=== PATIENT | male | born 1990 | race Caucasian/White ===

== ENCOUNTER 2017-11-21 21:00 | Inpatient (IN) ==
--- NOTE | 2017-11-21 22:28 | ED ---
HPI General Chief complaint: Medical Clearance Stated complaint: Medical clearance Time Seen by Provider: 11/21/17 22:18 History of Present Illness HPI narrative: Patient 27-year-old male Bulgarian only speaker history mostly obtained from friend plumbing foreman in the room, the patient started feeling ill about a month ago and went to [place] because he knew he can get seen by a physician quicker there. He was diagnosed with kidney failure and started on dialysis which he started about 2 weeks ago. His symptoms that caused him to go to [place] was numbness and tingling in his hands as well as just general fatigue. He tells me through plumbing foreman that his kidneys failed him because of uncontrolled blood pressure. The patient was unable to travel secondary to being on dialysis and was able to return to [place] today. He presents the emergency department today with the hopes of establishing a regular dialysis doctor. The patient has no complaints currently. Denies any shortness of breath chest pain abdominal pain nausea or vomiting. Related Data Home Medications Medication Instructions Recorded Confirmed Lasix 40 tab PO DAILY 11/21/17 11/21/17 amlodipine [Norvasc] 5 mg PO DAILY 11/21/17 11/21/17 Allergies Allergy/AdvReac Type Severity Reaction Status Date / Time No Known Allergies Allergy Verified 11/21/17 21:16 Review of Systems ROS: all other systems reviewed are negative [facility] Medical History Medical History HTN (hypertension) (Acute) Kidney failure (Acute) Social History Social History Substance History: No History of Abuse Smoking Status: Never smoker How Often Do You Have a Drink Containing Alcohol: Never Recent Travel in [facility] within the Last 8 Weeks: No Recent Out of Country Travel within the Last 8 Weeks: Yes Exam Narrative Exam Narrative: GENERAL: Well-developed well-nourished pleasant male in no obvious distress peer SKIN: Focused skin assessment warm/dry. A right-sided dialysis access subclavian is well dressed and clean. The dressing is not removed. HEAD: Atraumatic. Normocephalic. EYES: Pupils equal and round. No scleral icterus. No injection or drainage. ENT: No nasal bleeding or discharge. Mucous membranes pink and moist. NECK: Trachea midline. No JVD. CARDIOVASCULAR: Regular rate and rhythm. No murmur appreciated. RESPIRATORY: No accessory muscle use. Clear to auscultation. Breath sounds equal bilaterally. GASTROINTESTINAL: Abdomen soft, non-tender, nondistended. Hepatic and splenic margins not palpable. MUSCULOSKELETAL: No obvious deformities. No clubbing. No cyanosis. No edema. NEUROLOGICAL: Awake and alert. No obvious cranial nerve deficits. Motor grossly within normal limits. Normal speech. PSYCHIATRIC: Appropriate mood and affect; insight and judgment normal. Course Initial Documented Vital Signs Temperature 98.5 F 11/21/17 21:11 Pulse Rate 67 11/21/17 21:11 Respiratory Rate 16 11/21/17 21:11 Blood Pressure 189/91 H 11/21/17 21:11 Pulse Oximetry 100 11/21/17 21:11 Last Documented Vital Signs Temperature 98.5 F 11/21/17 21:11 Pulse Rate 67 11/21/17 21:11 Respiratory Rate 16 11/21/17 21:11 Blood Pressure 158/90 H 11/21/17 22:47 Pulse Oximetry 100 11/21/17 21:11 Medical Decision Making MDM Narrative Medical decision making narrative: Patient 27-year-old male presents emergency department for evaluation for routine dialysis. Patient's labs reviewed and creatinine is in excess of 12, BUN in excess of 90, sodium potassium chloride anion gap and bicarb within normal limits. Patient's phosphorus is moderately elevated and the magnesium is minimally elevated. Patient does not have any fluid overload. He has no complaints, no changes on EKG. Patient was discussed with Dr. Whitney who is on-call for nephrology, he would like the patient to be admitted to see case management and dialyzed. Patient discussed with Dr. Call, she states that despite the patient's uremia there is no true indications for admission the patient to remain in the emergency department for evaluation by case management nephrology. I think that is a reasonable course of action at this time. He will be moved to a medical pot and I will give sign out to the Doctor there at the end of my shift at 0100. Medical Screen Exam Complete: Yes Emergency Medical Condition: Yes Lab Data Result diagrams: 11/21/17 22:30 11/21/17 22:30 Lab Results 11/21/17 11/21/17 11/21/17 Range/Units 22:30 22:30 22:30 WBC 7.7 (4.0-11.0) th/mm3 RBC 2.51 L (4.50-5.90) mil/mm3 Hgb 8.3 L (13.0-17.0) gm/dL Hct 23.5 L (39.0-51.0) % MCV 93.7 (80.0-100.0) fL MCH 33.1 (27.0-34.0) pg MCHC 35.4 (32.0-36.0) % RDW 13.4 (11.6-17.2) % Plt Count 246 (150-450) th/mm3 MPV 7.6 (7.0-11.0) fL Neut % (Auto) 56.8 (16.0-70.0) % Lymph % (Auto) 26.9 (9.0-44.0) % [place] % (Auto) 8.8 H (0.0-8.0) % Eos % (Auto) 4.6 H (0.0-4.0) % Baso % (Auto) 2.9 H (0.0-2.0) % Neut # (Auto) 4.4 (1.8-7.7) th/mm3 Lymph # (Auto) 2.1 (1.0-4.8) th/mm3 [place] # (Auto) 0.7 (0.0-0.9) th/mm3 Eos # (Auto) 0.4 (0.0-0.4) th/mm3 Baso # (Auto) 0.2 (0.0-0.2) th/mm3 WBC Differential . Differential Comment Auto diff final Sodium 144 (136-145) meq/L Potassium 4.4 (3.5-5.1) meq/L Chloride 107 (98-107) meq/L Carbon Dioxide 22.6 (21.0-32.0) meq/L Anion Gap 14 (5-15) meq/L BUN 94 H (7-18) mg/dL Creatinine 12.88 H* (0.60-1.30) mg/dL Estimated GFR 5 L (>89) mL/min Random Glucose 109 H (74-106) mg/dL Calcium 7.5 L (8.5-10.1) mg/dL Phosphorus 7.5 H (2.5-4.9) mg/dL Magnesium 2.6 H (1.5-2.5) mg/dL Total Bilirubin 0.2 (0.2-1.0) mg/dL AST 5 L (15-37) U/L ALT 23 (12-78) U/L Alkaline Phosphatase 58 (45-117) U/L Total Protein 8.4 H (6.4-8.2) g/dL Albumin 4.2 (3.4-5.0) g/dL Imaging Data Radiologist's impression: Chest X-Ray 11/21/17 22:19 CONCLUSION: The lungs are clear. Discharge Plan Discharge Disposition Patient Disposition: 30 Still Patient Discharge Details Diagnosis: CKD (chronic kidney disease) stage V requiring chronic dialysis Physicians Team ED Provider: Shelton Crystal Primary Care Provider: Primary Care Swati Valle Rxs /Orders / Referrals /Forms Prescriptions: No Action amlodipine [Norvasc] 5 mg Tablet 5 mg PO DAILY RF: 0 Lasix tablet 40 tab PO DAILY RF: 0 Status ED Status: Medically Cleared
--- NOTE | 2017-11-21 22:37 | XR ---
EXAM DATE: 11/21/2017 10:19 PM EDT AGE/SEX: 27 years / Male INDICATIONS: Chest pain. CLINICAL DATA: This is the patient's initial encounter. Patient reports that signs and symptoms have been present for 1 day and indicates a pain score of 0/10. MEDICAL/SURGICAL HISTORY: None. None. COMPARISON: No prior exams available for comparison. FINDINGS: A single AP view of the chest demonstrates the lungs to be symmetrically aerated without evidence of mass, infiltrate or effusion. No evidence of pneumothorax. The cardiomediastinal contours are unremar kable. Osseous structures are intact. Right central line catheter tip at the cavoatrial junction. CONCLUSION: The lungs are clear. Electronically signed by: Esequiel Estrada MD 11/21/2017 10:36 PM EDT
[2017-11-21 22:45] LABS: Baso # (Auto) 0.2 th/mm3 (0.0-0.2); Baso % (Auto) 2.9 % (0.0-2.0); Eos # (Auto) 0.4 th/mm3 (0.0-0.4); Eos % (Auto) 4.6 % (0.0-4.0); Hematocrit 23.5 % (39.0-51.0); Hemoglobin 8.3 gm/dL (13.0-17.0); Lymph # (Auto) 2.1 th/mm3 (1.0-4.8); Lymph % (Auto) 26.9 % (9.0-44.0); Mean Corpuscular HGB Conc 35.4 % (32.0-36.0); Mean Corpuscular Hemoglobin 33.1 pg (27.0-34.0); Mean Corpuscular Volume 93.7 fL (80.0-100.0); Mean Platelet Volume 7.6 fL (7.0-11.0); Mono # (Auto) 0.7 th/mm3 (0.0-0.9); Mono % (Auto) 8.8 % (0.0-8.0); Neut # (Auto) 4.4 th/mm3 (1.8-7.7); Neut % (Auto) 56.8 % (16.0-70.0); Platelet Count 246 th/mm3 (150-450); Red Blood Count 2.51 mil/mm3 (4.50-5.90); Red Cell Distribution Width 13.4 % (11.6-17.2); White Blood Count 7.7 th/mm3 (4.0-11.0)
[2017-11-21 23:09] LABS: Alanine Aminotransferase 23 U/L (12-78); Albumin 4.2 g/dL (3.4-5.0); Anion Gap 14 meq/L (5-15); Aspartate Aminotransferase 5 U/L (15-37); Blood Urea Nitrogen 94 mg/dL (7-18); Calcium 7.5 mg/dL (8.5-10.1); Carbon Dioxide 22.6 meq/L (21.0-32.0); Chloride 107 meq/L (98-107); Glomerular Filtration Rate 5 mL/min (>89); Glucose,Random 109 mg/dL (74-106); Potassium 4.4 meq/L (3.5-5.1); Sodium 144 meq/L (136-145)
[2017-11-21 23:11] LABS: Alkaline Phosphatase 58 U/L (45-117); Total Protein 8.4 g/dL (6.4-8.2)
[2017-11-21 23:49] LABS: Magnesium 2.6 mg/dL (1.5-2.5); Phosphorus 7.5 mg/dL (2.5-4.9)
[2017-11-22] MEDS ORDERED: Bisacodyl 10 MG Supp RECTAL PRN (13:09)
--- NOTE | 2017-11-22 13:37 | P.HPFP ---
History of Present Illness Primary Care Physician: No Primary Care Physician <Sandra Quiroz - 11/23/17 10:08> No Primary Care Physician <Tiffani Bryson 11/22/17 13:37> Chief Complaint: Chronic kidney requiring dialysis <Tiffani Bryson V 14:27> History of Present Illness: 27 yr old male Vietnamese speaker presented to the ED with a recently diagnosed CKD stage V, requiring dialysis. He states he has been previously healthy, with no medical conditions, or chronic medical disease. He was recently in [place], started note feeling well, including hypotension, weakness, and nausea. He went to the hospital and was then diagnosed with chronic kidney failure. He was started on dialysis and a worked up was done, however they did not give him a cause of his kidney failure. He states they talked about doing a kidney biopsy but was not performed, they also discussed the possibility of a kidney transplant. He received dialysis 3 times in order to stabilize him for [place]. The only other sick episode he had, was about 3 months ago, then he was not feeling well, with some nausea, and vomiting. He states his hypertension was discovered about 6 months ago, but nothing before that. He is not taking any medications. Pt denies any drug use, no congenital abnormalities , no defects, no history of anomalies growing up. PMH: high blood pressure. SHx: No surgical history. FHx: No renal family history, one uncle with kidney stones only. Maternal side with DMT2. Social: lives with father and grandfather, used to drink on weekends mainly, and sometimes 1-2 beers during week days. Smoked cigarettes for 5 years, 1/2 pack cigarettes a day. Currently not smoking. Denies drug use of any kind. Allergies: none Meds: none. <Tiffani Bryson V 11/22/17 14:27> - Diagnosis (1) CKD (chronic kidney disease) stage V requiring chronic dialysis (2) Hypertension (3) Nutrition, metabolism, and development symptoms (4) DVT prophylaxis <Sandra Quiroz - 11/23/17 10:08> (1) CKD (chronic kidney disease) stage V requiring chronic dialysis (2) Hypertension (3) Nutrition, metabolism, and development symptoms (4) DVT prophylaxis <All LeviDebi - 11/22/17 20:43> Inpatient Certification: I certify that the inpatient services were ordered in accordance with Medicare regulations governing the order. This includes certification that hospital inpatient services are reasonable and necessary and in the case of services not specified as inpatient-only under 42 CFR 419.22(n), that they are appropriately provided as inpatient services in accordance to with the 2-midnight benchmark under 43 CFR 412.3(e) <Sandra Quiroz - 11/23/17 10:08> I certify that the inpatient services were ordered in accordance with Medicare regulations governing the order. This includes certification that hospital inpatient services are reasonable and necessary and in the case of services not specified as inpatient-only under 42 CFR 419.22(n), that they are appropriately provided as inpatient services in accordance to with the 2-midnight benchmark under 43 CFR 412.3(e) <All Sims,Debi 11/22/17 13:37> Estimated Total Length of Stay (Days): 2 <Allmaninder SimsDebi 11/22/17 13: 37> Plans for Post Hospital Care: Home <All Sims,Debi 11/22/17 13:37> Review of Systems Constitutional: Reports lack of energy, Reports malaise, Reports weakness, Denies body ache(s), Denies fever(s) <Tiffani Bryson V 11/22/17 14:27> Cardiovascular: Denies chest pain, Denies foot swelling, Denies generalized swelling <Tiffani Bryson V 11/22/17 14:27> Gastrointestinal: Reports constipation, Reports nausea, Denies abdominal pain, Denies vomiting <Tiffani Bryson V 11/22/17 14:27> Genitourinary: Reports decreased urination, Denies blood in urine, Denies difficulty urinating <Tiffani Bryson V 11/22/17 14:27> Neurologic: Reports weakness <Tiffani Bryson V 11/22/17 14:27> Allergic/Immunologic: Denies GI upset with certain foods, Denies hives, Denies seasonal runny nose <Tiffani Bryson V 11/22/17 14:27> PMFSH - History History Provided By: Patient <Tiffani Bryson 11/22/17 13:37> - Medical / Surgical Hx Neg / Unobtainable Surgical History: No Previous Surgery <AllTiffani Dennison 11/22/17 14:27> - Medical History Medical History: Medical History (Last Reviewed 11/22/17 @ 14:07 by Tiffani Sims MD, R1 ) HTN (hypertension) Kidney failure <Sandra Quiroz - 11/23/17 10:08> Medical History (Last Reviewed 11/22/17 @ 14:07 by Tiffani Sims MD, R1 ) HTN (hypertension) Kidney failure <Tiffani Bryson V 11/22/17 14:27> - Social History I have reviewed the patient's Social History: Yes <Tiffani Bryson V 10/02 14:27> - Tobacco History Smoking Status: Never smoker <Tiffani Bryson 11/22/17 13:37> - Alcohol History How Often Do You Have a Drink Containing Alcohol: Never <Tiffani Bryson 11/22/17 13:37> - Substance Use History Substance History: No History of Abuse <Tiffani Bryson 11/22/17 13:37 > - Travel History Recent Travel in the [facility] Within the Last 8 Weeks: No <Tiffani Bryson 11/22/17 13:37> Recent Travel Out of the Country Within the Last 8 Weeks: Yes <Tiffani Bryson 11/22/17 13:37> - Immunization History Tetanus Immunization: Unsure <Tiffani Bryson 11/22/17 13:37> Medications and Allergies Allergies Allergy/AdvReac Type Severity Reaction Status Date / Time No Known Allergies Allergy Verified 11/21/17 21:16 <Sandra Quiroz - 11/23/17 10:08> Home Medications Medication Instructions Recorded Confirmed Type Lasix 40 tab PO DAILY 11/21/17 11/21/17 History amlodipine [Norvasc] 5 mg PO DAILY 11/21/17 11/21/17 History <Sandra Quiroz - 11/23/17 10:08> Active Medications: Active Medications Al Hydroxide/Mg Hydroxide (Milk Of Dwight Liq) 30 ml PO Q12H PRN PRN Reason: Mild Constipation Amlodipine Besylate (Norvasc) 5 mg PO DAILY [facility] Last Admin: 11/22/17 22:21 Dose: 5 mg Bisacodyl (Dulcolax Supp) 10 mg RECTAL DAILY PRN PRN Reason: SEVERE CONSITIPATION Clonidine HCl (Catapres) 0.1 mg PO Q6H PRN PRN Reason: HYPERTENSION Furosemide (Lasix) 40 mg PO DAILY [facility] Last Admin: 11/23/17 09:15 Dose: Not Given Lactulose (Lactulose Liq) 30 ml PO DAILY PRN PRN Reason: SEVERE CONSITIPATION Ondansetron HCl (Zofran Inj) 4 mg IV.PUSH Q6H PRN PRN Reason: NAUSEA OR VOMITING Senna/Docusate Sodium (Ana-Colace) 1 tab PO BID [facility] Last Admin: 11/23/17 09:17 Dose: Not Given Sennosides (Senokot) 17.2 mg PO Q12H PRN PRN Reason: Moderate Constipation Sodium Chloride (Ns Flush) 2 ml IV.FLUSH UNSCH PRN PRN Reason: FLUSH AFTER USING IV ACCESS Sodium Chloride (Ns Flush) 2 ml IV.FLUSH BID [facility] Last Admin: 11/23/17 09:17 Dose: 2 ml <Sandra Quiroz R - 11/23/17 10:08> Active Medications Al Hydroxide/Mg Hydroxide (Milk Of Magnesia Liq) 30 ml PO Q12H PRN PRN Reason: Mild Constipation Bisacodyl (Dulcolax Supp) 10 mg RECTAL DAILY PRN PRN Reason: SEVERE CONSITIPATION Lactulose (Lactulose Liq) 30 ml PO DAILY PRN PRN Reason: SEVERE CONSITIPATION Ondansetron HCl (Zofran Inj) 4 mg IV.PUSH Q6H PRN PRN Reason: NAUSEA OR VOMITING Senna/Docusate Sodium (Ana-Colace) 1 tab PO BID [facility] Sennosides (Senokot) 17.2 mg PO Q12H PRN PRN Reason: Moderate Constipation Sodium Chloride (Ns Flush) 2 ml IV.FLUSH UNSCH PRN PRN Reason: FLUSH AFTER USING IV ACCESS <Tiffani Bryson V - 11/22/17 13:37> Exam Vital signs: Vital Signs 11/22/17 12:14 11/22/17 14:32 11/22/17 16:24 Temperature 98.5 F Pulse Rate 72 72 65 Respiratory Rate 16 16 20 Blood Pressure 140/89 140/89 157/91 H Pulse Oximetry 100 100 100 11/22/17 20:00 11/23/17 00:00 11/23/17 03:59 Temperature 99.9 F H 97.9 F 98.2 F Pulse Rate 60 70 86 Respiratory Rate 19 19 20 Blood Pressure 152/86 H 147/73 H 140/75 Pulse Oximetry 100 100 100 11/23/17 07:51 11/23/17 08:00 11/23/17 09:00 Temperature 98.7 F 98.5 F Pulse Rate 71 74 74 Respiratory Rate 20 18 Blood Pressure 150/87 H 150/87 H Pulse Oximetry 100 100 Intake & Output 11/22/17 11/23/17 11/23/17 18:59 06:59 18:59 Intake Total 150 / 150 Output Total 750 / 750 Balance 150 / 150 -750 / -750 Weight 79.3 kg Intake: Oral 150 / 150 Output: Urine 750 / 750 Other: Date of Last Bowel Movement 11/21/17 <Sandra Quiroz R - 11/23/17 10:08> Vital Signs 11/21/17 21:11 11/21/17 22:47 11/22/17 08:00 Temperature 98.5 F 98.3 F Pulse Rate 67 76 Respiratory Rate 16 20 Blood Pressure 189/91 H 158/90 H 146/83 H Pulse Oximetry 100 100 11/22/17 09:16 11/22/17 12:14 Temperature Pulse Rate 72 72 Respiratory Rate 16 16 Blood Pressure 140/89 140/89 Pulse Oximetry 100 100 Intake & Output 11/21/17 11/22/17 11/22/17 18:59 06:59 18:59 Weight 76.9 kg <Tiffani Bryson V - 11/22/17 13:37> Narrative: GENERAL: Well-nourished, well-developed patient. NAD SKIN: Warm and dry. HEAD: Normocephalic and atraumatic. EYES: No scleral icterus. No injection or drainage. ENT: No nasal drainage noted. Mucous membranes pink. Airway patent. CARDIOVASCULAR: Regular rate and rhythm without murmurs, gallops, or rubs. RESPIRATORY: Breath sounds equal bilaterally. No accessory muscle use. ABDOMEN/GI: Abdomen soft, non-tender, bowel sounds present, no rebound, no guarding EXTREMITIES: No cyanosis or edema. BACK: Nontender without obvious deformity. No CVA tenderness. NEUROLOGICAL: Awake and alert. Motor and sensory grossly within normal limits. Normal speech. <All SimsTiffaniDebi - 11/22/17 14:27> Results - Labs Result diagrams: 11/21/17 22:30 11/23/17 06:20 <Sanrda Quiroz R - 11/23/17 10:08> Abnormal lab results 11/23/17 Range/Units 06:20 Sodium 146 H (136-145) meq/L Chloride 109 H (98-107) meq/L Carbon Dioxide 20.6 L (21.0-32.0) meq/L Anion Gap 16 H (5-15) meq/L BUN 105 H (7-18) mg/dL Creatinine 14.11 H* D (0.60-1.30) mg/dL Estimated GFR 4 L (>89) mL/min Calcium 7.8 L (8.5-10.1) mg/dL Phosphorus 8.9 H D (2.5-4.9) mg/dL BMP 11/23/17 06:20 Sodium 146 H Potassium 5.1 Chloride 109 H Carbon Dioxide 20.6 L BUN 105 H Creatinine 14.11 H* D Calcium 7.8 L Liver Function 11/23/17 Range/Units 06:20 Albumin 3.6 D (3.4-5.0) g/dL <Sandra Quiroz R - 11/23/17 10:08> Abnormal lab results 11/21/17 11/21/17 11/21/17 Range/Units 22:30 22:30 22:30 RBC 2.51 L (4.50-5.90) mil/mm3 Hgb 8.3 L (13.0-17.0) gm/dL Hct 23.5 L (39.0-51.0) % Hendricks % (Auto) 8.8 H (0.0-8.0) % Eos % (Auto) 4.6 H (0.0-4.0) % Baso % (Auto) 2.9 H (0.0-2.0) % BUN 94 H (7-18) mg/dL Creatinine 12.88 H* (0.60-1.30) mg/dL Estimated GFR 5 L (>89) mL/min Random Glucose 109 H (74-106) mg/dL Calcium 7.5 L (8.5-10.1) mg/dL Phosphorus 7.5 H (2.5-4.9) mg/dL Magnesium 2.6 H (1.5-2.5) mg/dL AST 5 L (15-37) U/L Total Protein 8.4 H (6.4-8.2) g/dL Short CBC 11/21/17 Range/Units 22:30 WBC 7.7 (4.0-11.0) th/mm3 Hgb 8.3 L (13.0-17.0) gm/dL Hct 23.5 L (39.0-51.0) % Plt Count 246 (150-450) th/mm3 BMP 11/21/17 22:30 Sodium 144 Potassium 4.4 Chloride 107 Carbon Dioxide 22.6 BUN 94 H Creatinine 12.88 H* Calcium 7.5 L Liver Function 11/21/17 Range/Units 22:30 Total Bilirubin 0.2 (0.2-1.0) mg/dL AST 5 L (15-37) U/L ALT 23 (12-78) U/L Alkaline Phosphatase 58 (45-117) U/L Albumin 4.2 (3.4-5.0) g/dL <Tiffani Bryson V - 11/22/17 13:37> - Imaging Impressions Chest X-Ray 11/21/17 22:19 CONCLUSION: The lungs are clear. <Tiffani Bryson V - 11/22/17 13:37> Caprini VTE Risk Assessment Caprini VTE Risk Assessment: No/Low Risk (score <= 1) <Tiffani Bryson 11/22/17 14:27> Caprini Risk Assessment Model: Point Value = 1 Point Value = 2 Point Value = 3 Point Value = 5 Age 41-60 Minor surgery BMI > 25 kg/m2 Swollen legs Varicose veins or History of unexplained or recurrent spontaneous Oral contraceptives or hormone replacement Sepsis (< 1 month) Serious lung disease, including pneumonia (< 1 month) Abnormal pulmonary function Acute myocardial infarction Congestive heart failure (< 1 month) History of inflammatory bowel disease Medical patient at bed rest Age 61-74 Arthroscopic surgery Major open surgery (> 45 min) Laparoscopic surgery (> 45 min) Malignancy Confined to bed (> 72 hours) Immobilizing plaster cast Central venous access Age >= 75 History of VTE Family history of VTE Factor V Leiden Prothrombin [id number] Lupus anticoagulant Anticardiolipin antibodies Elevated serum homocysteine Heparin-induced thrombocytopenia Other congenital or acquired thrombophilia Stroke (< 1 month) Elective arthroplasty Hip, pelvis, or leg fracture Acute spinal cord injury (< 1 month) <Sandra Quiroz R - 11/23/17 10:08> Point Value = 1 Point Value = 2 Point Value = 3 Point Value = 5 Age 41-60 Minor surgery BMI > 25 kg/m2 Swollen legs Varicose veins or History of unexplained or recurrent spontaneous Oral contraceptives or hormone replacement Sepsis (< 1 month) Serious lung disease, including pneumonia (< 1 month) Abnormal pulmonary function Acute myocardial infarction Congestive heart failure (< 1 month) History of inflammatory bowel disease Medical patient at bed rest Age 61-74 Arthroscopic surgery Major open surgery (> 45 min) Laparoscopic surgery (> 45 min) Malignancy Confined to bed (> 72 hours) Immobilizing plaster cast Central venous access Age >= 75 History of VTE Family history of VTE Factor V Leiden Prothrombin [id number] Lupus anticoagulant Anticardiolipin antibodies Elevated serum homocysteine Heparin-induced thrombocytopenia Other congenital or acquired thrombophilia Stroke (< 1 month) Elective arthroplasty Hip, pelvis, or leg fracture Acute spinal cord injury (< 1 month) <Tiffani Bryson V - 11/22/17 13:37> Prophylaxis Regimen: Total Risk Factor Score Risk Level Prophylaxis Regimen 0-1 Low Early ambulation 2 Moderate Order ONE of the following: *Sequential Compression Device (SCD) *Heparin 5000 units SQ BID 3-4 Higher Order ONE of the following medications: *Heparin 5000 units SQ TID *Enoxaparin/Lovenox 40 mg SQ daily (WT < 150 kg, CrCl > 30 mL/min) *Enoxaparin/Lovenox 30 mg SQ daily (WT < 150 kg, CrCl > 10-29 mL/min) *Enoxaparin/Lovenox 30 mg SQ BID (WT < 150 kg, CrCl > 30 mL/min) AND/OR *Sequential Compression Device (SCD) 5 or more Highest Order ONE of the following medications: *Heparin 5000 units SQ TID (Preferred with Epidurals) *Enoxaparin/Lovenox 40 mg SQ daily (WT < 150 kg, CrCl > 30 mL/min) *Enoxaparin/Lovenox 30 mg SQ daily (WT < 150 kg, CrCl > 10-29 mL/min) *Enoxaparin/Lovenox 30 mg SQ BID (WT < 150 kg, CrCl > 30 mL/min) AND *Sequential Compression Device (SCD) <Sandra Quiroz - 11/23/17 10:08> Total Risk Factor Score Risk Level Prophylaxis Regimen 0-1 Low Early ambulation 2 Moderate Order ONE of the following: *Sequential Compression Device (SCD) *Heparin 5000 units SQ BID 3-4 Higher Order ONE of the following medications: *Heparin 5000 units SQ TID *Enoxaparin/Lovenox 40 mg SQ daily (WT < 150 kg, CrCl > 30 mL/min) *Enoxaparin/Lovenox 30 mg SQ daily (WT < 150 kg, CrCl > 10-29 mL/min) *Enoxaparin/Lovenox 30 mg SQ BID (WT < 150 kg, CrCl > 30 mL/min) AND/OR *Sequential Compression Device (SCD) 5 or more Highest Order ONE of the following medications: *Heparin 5000 units SQ TID (Preferred with Epidurals) *Enoxaparin/Lovenox 40 mg SQ daily (WT < 150 kg, CrCl > 30 mL/min) *Enoxaparin/Lovenox 30 mg SQ daily (WT < 150 kg, CrCl > 10-29 mL/min) *Enoxaparin/Lovenox 30 mg SQ BID (WT < 150 kg, CrCl > 30 mL/min) AND *Sequential Compression Device (SCD) <Tiffani Bryson V - 11/22/17 13:37> Assessment and Plan - Assessment (1) CKD (chronic kidney disease) stage V requiring chronic dialysis Code(s): N18.6 - End stage renal disease; Z99.2 - Dependence on renal dialysis Status: Acute (2) Hypertension Code(s): I10 - Essential (primary) hypertension Status: Acute (3) Nutrition, metabolism, and development symptoms Code(s): R63.8 - Other symptoms and signs concerning food and fluid intake Status: Acute (4) DVT prophylaxis Status: Acute <Sandra Quiroz R - 11/23/17 10:08> (1) CKD (chronic kidney disease) stage V requiring chronic dialysis Code(s): N18.6 - End stage renal disease; Z99.2 - Dependence on renal dialysis Status: Acute (2) Hypertension Code(s): I10 - Essential (primary) hypertension Status: Acute (3) Nutrition, metabolism, and development symptoms Code(s): R63.8 - Other symptoms and signs concerning food and fluid intake Status: Acute (4) DVT prophylaxis Status: Acute <All SimsTiffani Haro - 11/22/17 20:43> - Assessment and Plan 27 yr old male with recent discovered hypertension (within the last 6 months), recently diagnosed with Chronic Kidney Disease stage V while in [place]. Pt seen in [place] and started on dialysis. Some workup was done but he does not know what the etiology of kidney disease is. pt's creatinine on admission is 12.88 w/ BUN of 94. At this point, the plan is to get hemodialysis urgently, in the meantime retrieve records from [place] and to complete workup as needed. Pt will be admitted for dialysis. CM is consulted in order to coordinate outpatient dialysis. Pt is a green card [place] and might qualify for Medicaid. He will also need follow up with Nephrology outpatient. Plan: Chronic Kidney Disease of unknown etiology DDX include but not limited to longstanding HTN v autoimmune v genetic disease. Pt is otherwise 27 yr old and previously healthy - Cr of 12.88 BUN 94 GFR 5 Phosphorus 7.5 - Consult to Nephrology placed Stat last night. - Plan for Hemodialysis - Continue home Furosemide 40mg PO daily - Repeat AM labs - Review records once received (family to bring them) - CM consulted to coordinate outpatient dialysis Hypertension - Pt diagnosed 6 months ago. - Continue home medication of Amlodipine 5mg po daily - Clonidine 0.1mg PO PRN for Systolic >180 or Diastolic >110 FEN & DVT prophylaxis - Renal diet, PO intake. Monitor electrolytes closely. - SCDs bilateral Pt seen and discussed with Dr Quiroz. <Tiffani Bryson V - 11/22/17 20:42> - Attending Attestation The exam, history, and the medical decision-making described in the above note were completed with the assistance of the resident physician. I reviewed and agree with the findings presented. I attest that I had a [id number] encounter with the patient on the same day, and personally performed and documented my assessment and findings in the medical record. <Sandra Quiroz - 11/23/17 10:08>
--- NOTE | 2017-11-22 17:05 | ECG ---
Date Performed: 11/21/2017 Time Performed: 23:14:16 PTAGE: 27 years EKG: Sinus rhythm NORMAL ECG NO PREVIOUS TRACING DOCTOR: Ada Mccoy Interpretating Date/Time 11/22/2017 17:04:10
[2017-11-22] MEDS: Sodium Chloride 0.9% 2 ML Flush BID IV.FLUSH SCH (21:36)
[2017-11-22] MEDS: Senna/Docusate Sodium 8.6/50 MG Tablet PO SCH (21:36)
[2017-11-22] MEDS: amLODIPine 5 MG Tablet PO SCH (22:21)
[2017-11-23 08:16] LABS: Albumin 3.6 g/dL (3.4-5.0); Calcium 7.8 mg/dL (8.5-10.1); Carbon Dioxide 20.6 meq/L (21.0-32.0); Phosphorus 8.9 mg/dL (2.5-4.9); Potassium 5.1 meq/L (3.5-5.1)
[2017-11-23] MEDS ORDERED: Furosemide 40 MG Tablet PO SCH (09:00)
[2017-11-23] MEDS: Sodium Chloride 0.9% 2 ML Flush BID IV.FLUSH SCH ×2 (09:17→22:12)
[2017-11-23] MEDS: Senna/Docusate Sodium 8.6/50 MG Tablet PO SCH ×2 (09:17→22:12)
--- NOTE | 2017-11-23 09:40 | P.PNADD ---
Addendum to Inpatient Note Reason for Addendum: Additional Documentation Additional information: Pt's records from [place] received and reviewed. Hospital summary: 27 yr old male seen and evaluated for nausea, vomiting, fatigue, cramps in lower extremities and skin color changes. Upon admission he was found to have pale mucous membranes and pale skin, as well as elevated blood pressure. Pt laboratory showed chronic hyperazotemia with Cr of 14.38 mg/ dL, urea of 130mg/dL, normocytic anemia w/ Hb of 7.6 mg/DL, and MCV of 91 fL. He had minimal hypercalcemia of 5.6 mmol/L, arterial blood gas demonstrating chronic metabolic acidosis, proteinuria of 3.3g/day. US of kidneys showed nephropathy with bilateral renal atrophy, and loss of cortex-medullary relationship. Pt was given hemodialysis three times and he decided [place] the [place] of care. Pt has lived in the for over 5 years and is a permanent resident ([place] card [place] As of note, pt did not go to [place] to seek medical attention, he was there on vacation and felt sick, went to the hospital and found to have CKD as noted above. Pt has NO prior diagnosis of either hypertension OR kidney disease. This was a previously healthy 27 yr old male with unknown etiology of kidney disease , no family history, and no prior diagnosis. [place] workup was minimal only including a renal US, basic labs, and dsDNA which was negative. Pt was discharged from the hospital with new medications including Amlodipine 5mg qday, metoprolol 100mg BID, Iron sulfate 200mg q day, and Vitamin B complex. Will upload records in [facility] for completion. Records are in [place].
[2017-11-23] MEDS ORDERED: Sod Chloride 0.9% Inj 1,000 ML OTHER PRN ×2 (10:34)
[2017-11-23] MEDS ORDERED: Gelatin 12 MM/7 MM Topical Foam TOPICAL PRN (10:34)
[2017-11-23] MEDS ORDERED: Albumin Human 25% Inj 100 ML IV.SIG PRN (10:34)
[2017-11-23] MEDS ORDERED: Sod Chloride 0.9% Inj 1,000 ML IV.CONT PRN (10:34)
[2017-11-23] MEDS ORDERED: Heparin 10,000 UNITS/10 ML Vial (for IV use) OTHER PRN (10:34)
--- NOTE | 2017-11-23 10:49 | P.PNFP ---
Subjective Interval history: Please see the addendum from Dr. Carrizales on 11/23/17 describing the medical workup and records obtained from the patients workup in [place]. Patient overall did well overnight. he is still urinating. he denies cp/sob. he denies fevers/chills/nausea or vomiting. Results - Labs Result diagrams: 11/21/17 22:30 11/23/17 06:20 Abnormal lab results 11/23/17 Range/Units 06:20 Sodium 146 H (136-145) meq/L Chloride 109 H (98-107) meq/L Carbon Dioxide 20.6 L (21.0-32.0) meq/L Anion Gap 16 H (5-15) meq/L BUN 105 H (7-18) mg/dL Creatinine 14.11 H* D (0.60-1.30) mg/dL Estimated GFR 4 L (>89) mL/min Calcium 7.8 L (8.5-10.1) mg/dL Phosphorus 8.9 H D (2.5-4.9) mg/dL BMP 11/23/17 06:20 Sodium 146 H Potassium 5.1 Chloride 109 H Carbon Dioxide 20.6 L BUN 105 H Creatinine 14.11 H* D Calcium 7.8 L Liver Function 11/23/17 Range/Units 06:20 Albumin 3.6 D (3.4-5.0) g/dL Physical Exam Vital signs: Vital Signs 11/22/17 12:14 11/22/17 14:32 11/22/17 16:24 Temperature 98.5 F Pulse Rate 72 72 65 Respiratory Rate 16 16 20 Blood Pressure 140/89 140/89 157/91 H Pulse Oximetry 100 100 100 11/22/17 20:00 11/23/17 00:00 11/23/17 03:59 Temperature 99.9 F H 97.9 F 98.2 F Pulse Rate 60 70 86 Respiratory Rate 19 19 20 Blood Pressure 152/86 H 147/73 H 140/75 Pulse Oximetry 100 100 100 11/23/17 07:51 11/23/17 08:00 11/23/17 09:00 Temperature 98.7 F 98.5 F Pulse Rate 71 74 74 Respiratory Rate 20 18 Blood Pressure 150/87 H 150/87 H Pulse Oximetry 100 100 Intake & Output 11/22/17 11/23/17 11/23/17 18:59 06:59 18:59 Intake Total 150 / 150 Output Total 750 / 750 Balance 150 / 150 -750 / -750 Weight 79.3 kg Intake: Oral 150 / 150 Output: Urine 750 / 750 Other: Date of Last Bowel Movement 11/21/17 Narrative: GENERAL: Well-nourished, well-developed patient. NAD SKIN: Warm and dry. HEAD: Normocephalic and atraumatic. EYES: No scleral icterus. No injection or drainage. ENT: No nasal drainage noted. Mucous membranes pink. Airway patent. CARDIOVASCULAR: Regular rate and rhythm without murmurs, gallops, or rubs. RESPIRATORY: Breath sounds equal bilaterally. No accessory muscle use. ABDOMEN/GI: Abdomen soft, non-tender, bowel sounds present, no rebound, no guarding EXTREMITIES: No cyanosis or edema. BACK: Nontender without obvious deformity. No CVA tenderness. NEUROLOGICAL: Awake and alert. Motor and sensory grossly within normal limits. Normal speech. Assessment and Plan - Assessment (1) CKD (chronic kidney disease) stage V requiring chronic dialysis Code(s): N18.6 - End stage renal disease; Z99.2 - Dependence on renal dialysis Status: Acute (2) Hypertension Code(s): I10 - Essential (primary) hypertension Status: Acute (3) Nutrition, metabolism, and development symptoms Code(s): R63.8 - Other symptoms and signs concerning food and fluid intake Status: Acute (4) DVT prophylaxis Status: Acute - Assessment and Plan 27 yr old male previously healthy was diagnosed with HTN about 6months ago. He recently went on vacation to [place] felt ill and was found to be in renal failure. Very minimal workup was done in [place] as patient was just trying to get stabilized to get [place] the [place] for continued care and workup. records from [place] not really revealing and very minimal was done. Patient will be dialyzed today but it remains unclear why a 27year old healthy male developed HTN and also ESRD In such a short period of time. Patient denies drugs, weekend ETOH of a couple of beers. Plan: Chronic Kidney Disease of unknown etiology DDX include but not limited to longstanding HTN v autoimmune v genetic disease. - Dr. Whitney has agreed to start dialysis for this patient. - consideration should be made for further workup for etiology of this ESRD as well. - CM consulted to coordinate outpatient dialysis and obtaining Medicare or Medicaid for this patient. Hypertension - Pt diagnosed 6 months ago. - Continue home medication of Amlodipine 5mg po daily - Clonidine 0.1mg PO PRN for Systolic >180 or Diastolic >110 FEN & DVT prophylaxis - Renal diet, PO intake. Monitor electrolytes closely. - SCDs bilateral Pt seen and discussed with the resident team -- Dr. Muller, Dr. Carrizales, Dr. Vasquez.
--- NOTE | 2017-11-23 10:57 | P.CONNP ---
History of Present Illness Reason for Consult: Dialysis dependence and possible end-stage renal disease. Primary Care Provider: No Primary Care Physician Chief Complaint: Chronic kidney requiring dialysis History of Present Illness: This patient is a 27-year-old male of [place] origin now residing in the [facility]. Patient denies any previous medical problems to his knowledge including hypertension and diabetes as well as collagen vascular disease. The patient recently went to [place] about 2 weeks ago for vacation. Prior to leaving he stated that he felt tired. Subsequently developed nausea and vomiting and sought medical attention and was diagnosed as having kidney failure and dialysis was initiated in [place]. Patient had a dialysis session about 3 days ago in [place]. Presented to the emergency room noted to have a creatinine of 12.8 and BUN of 94 hemoglobin 8.3. Patient resides in [place]. Denies any childhood history suggestive of a nephritis. No family history of renal failure. Denies using NSAIDs for analgesia. Also denying a history of hepatitis. I was contacted by the ER physician early a.m. Wednesday and I recommended admission. However apparently a discussion took place between ER physician and hospitalist and it was felt that the patient did not meet criteria for admission. Case management was consulted. I subsequently came off service call 7 AM that morning. When I made rounds later that day the patient was not on my consult list. I subsequently searched for the patient in the EMR and at that time I did not see an order for nephrology consultation visible from any physician despite the fact that now there appears to be a stat consult from the emergency room physician. Apparently later that a.m. a decision was made by the hospitalist to accept the patient in admission with an admission note time 6 hours after my service call have been completed. Apparently the on-call buttonhole machine operator at that time has refused to take the patient and I was contacted this a.m. Review of Systems All other systems reviewed negative except as stated in HPI PMFSH - History History Provided By: Patient - Medical History Medical History: Medical History (Last Reviewed 11/22/17 @ 14:07 by Tiffani Sims MD, R1 ) HTN (hypertension) Kidney failure - Surgical History Surgical History: Surgical History (Last Updated 11/23/17 @ 10:58 by Bruce Whitney MD) S/P hemodialysis catheter insertion - Tobacco History Second Hand Smoke Exposure: No Smoking Status: Never smoker - Alcohol History How Often Do You Have a Drink Containing Alcohol: Never - Substance Use History Substance History: No History of Abuse - Travel History Recent Travel in the [place] Within the Last 8 Weeks: No Recent Travel Out of the Country Within the Last 8 Weeks: Yes - Immunization History Tetanus Immunization: Unsure Medications and Allergies Active Medications: Active Medications Al Hydroxide/Mg Hydroxide (Milk Of Magnesia Liq) 30 ml PO Q12H PRN PRN Reason: Mild Constipation Amlodipine Besylate (Norvasc) 5 mg PO DAILY REPLACED BY [facility] Last Admin: 11/22/17 22:21 Dose: 5 mg Bisacodyl (Dulcolax Supp) 10 mg RECTAL DAILY PRN PRN Reason: SEVERE CONSITIPATION Clonidine HCl (Catapres) 0.1 mg PO Q6H PRN PRN Reason: HYPERTENSION Clonidine HCl (Catapres) 0.1 mg PO UNSCH PRN PRN Reason: SEE LABEL COMMENTS Diphenhydramine HCl (Benadryl) 25 mg PO UNSCH PRN PRN Reason: SEE LABEL COMMENTS Epoetin Jaziel (Epogen Inj) 4,000 unit IV.PUSH MOWEFR JEANNA Furosemide (Lasix) 40 mg PO DAILY REPLACED BY [facility] Last Admin: 11/23/17 09:15 Dose: Not Given Gelatin (Gelfoam 12 Mm/7 Mm Topical) 1 foam TOPICAL PRN PRN PRN Reason: help stop bleeding from site Gentamicin Sulfate (Gentamicin Inj) 20 mg OTHER WITH DIALYSIS PRN PRN Reason: Dwell Gentamycin Lock Heparin Sodium (Porcine) (Heparin Inj) 8,000 units OTHER WITH DIALYSIS PRN PRN Reason: for machine prime Heparin Sodium (Porcine) (Heparin Inj) 1,000 units OTHER WITH DIALYSIS PRN PRN Reason: Dwell Heparin to Fill Catheter Albumin Human (Flexbumin 25% Inj) 100 mls @ 60 mls/hr IV.SIG WITH DIALYSIS PRN PRN Reason: hypotension / volume replace Sodium Chloride (Ns Inj) 1,000 mls @ 0 mls/hr OTHER .Q0M PRN PRN Reason: for prime and rinse back Sodium Chloride (Ns Inj) 1,000 mls @ 200 mls/hr OTHER .Q5H PRN PRN Reason: for dialyzer flush PRN Sodium Chloride (Ns Inj) 1,000 mls @ 0 mls/hr IV.CONT .Q0M PRN PRN Reason: hypotension / volume replace Lactulose (Lactulose Liq) 30 ml PO DAILY PRN PRN Reason: SEVERE CONSITIPATION Nitroglycerin (Nitrostat Sl) 0.4 mg SL Q5M PRN PRN Reason: CHEST PAIN Ondansetron HCl (Zofran Inj) 4 mg IV.PUSH Q6H PRN PRN Reason: NAUSEA OR VOMITING Ondansetron HCl (Zofran Inj) 4 mg IV.PUSH UNSCH PRN PRN Reason: NAUSEA OR VOMITING Senna/Docusate Sodium (Ana-Colace) 1 tab PO BID REPLACED BY [facility] Last Admin: 11/23/17 09:17 Dose: Not Given Sennosides (Senokot) 17.2 mg PO Q12H PRN PRN Reason: Moderate Constipation Sodium Chloride (Ns Flush) 2 ml IV.FLUSH UNSCH PRN PRN Reason: FLUSH AFTER USING IV ACCESS Sodium Chloride (Ns Flush) 2 ml IV.FLUSH BID REPLACED BY [facility] Last Admin: 11/23/17 09:17 Dose: 2 ml Sodium Chloride (Ns Flush) 5 ml IV.FLUSH PRN PRN PRN Reason: flush each lumen during HD Allergies Allergy/AdvReac Type Severity Reaction Status Date / Time No Known Allergies Allergy Verified 11/21/17 21:16 Home Medications Medication Instructions Recorded Confirmed Type Lasix 40 tab PO DAILY 11/21/17 11/21/17 History amlodipine [Norvasc] 5 mg PO DAILY 11/21/17 11/21/17 History Exam Vital signs: Vital Signs 11/22/17 12:14 11/22/17 14:32 11/22/17 16:24 Temperature 98.5 F Pulse Rate 72 72 65 Respiratory Rate 16 16 20 Blood Pressure 140/89 140/89 157/91 H Pulse Oximetry 100 100 100 11/22/17 20:00 11/23/17 00:00 11/23/17 03:59 Temperature 99.9 F H 97.9 F 98.2 F Pulse Rate 60 70 86 Respiratory Rate 19 19 20 Blood Pressure 152/86 H 147/73 H 140/75 Pulse Oximetry 100 100 100 11/23/17 07:51 11/23/17 08:00 11/23/17 09:00 Temperature 98.7 F 98.5 F Pulse Rate 71 74 74 Respiratory Rate 20 18 Blood Pressure 150/87 H 150/87 H Pulse Oximetry 100 100 Intake & Output 11/22/17 11/23/17 11/23/17 18:59 06:59 18:59 Intake Total 150 / 150 Output Total 750 / 750 Balance 150 / 150 -750 / -750 Weight 79.3 kg Intake: Oral 150 / 150 Output: Urine 750 / 750 Other: Date of Last Bowel Movement 11/21/17 Narrative: GENERAL: Young male sitting in bed not in respiratory distress. SKIN: Warm and dry. Hemodialysis catheter present right upper chest exit site appears intact. HEAD: Normocephalic. EYES: No scleral icterus. No injection or drainage. NECK: Supple, trachea midline. No JVD or lymphadenopathy. CARDIOVASCULAR: Regular rate and rhythm without murmurs, gallops, or rubs. RESPIRATORY: Breath sounds equal bilaterally. No accessory muscle use. GASTROINTESTINAL: Abdomen soft, non-tender, nondistended. MUSCULOSKELETAL: No cyanosis, or edema. BACK: Nontender without obvious deformity. No CVA tenderness. Results - Lab Results 11/21/17 22:30 11/23/17 06:20 Most recent lab results Calcium 7.8 mg/dL (8.5-10.1) L 11/23/17 06:20 Phosphorus 8.9 mg/dL (2.5-4.9) H D 11/23/17 06:20 Magnesium 2.6 mg/dL (1.5-2.5) H 11/21/17 22:30 - Image Kidney/bladder ultrasound: pending Assessment and Plan - Assessment (1) CKD (chronic kidney disease) stage V requiring chronic dialysis Code(s): N18.6 - End stage renal disease; Z99.2 - Dependence on renal dialysis Status: Suspected - Plan Patient presently has renal failure. Duration uncertain presently. Renal ultrasound has been ordered as well as serological studies. Screening for secondary hyperparathyroidism renal disease also. Hepatitis profile. Uncertain if her renal biopsy will be beneficial. Dependent upon ultrasound findings. I have no previous laboratory studies going back over the last few months or years that will be available by history as the patient was under the care of a physician until he went to [place] and was diagnosed as having renal failure. If renal ultrasound is indicative of chronic irreversible kidney pathology kidney biopsy will not likely be beneficial in the face of severe renal failure superimposed. Final decision is pending however. We will proceed with dialysis today and tomorrow. Shorten treatment today to reduce risk of disequilibrium. Subsequently 3 times a week treatment. Case management will have to aid the patient if he remains dialysis dependent and finding an accepting outpatient buttonhole machine operator as well as dialysis facility. I will provide nephrology services during this admission. Medication should be adjusted for the patient's renal failure when indicated. Avoid gadolinium which is contraindicated. The patient was interviewed with the aid of a Azerbaijani-speaking RN and was advised that his hospitalization may be prolonged until an outpatient dialysis provider found for him. As mentioned the patient does reside in [place].
[2017-11-23 11:40] LABS: Albumin 3.9 g/dL (3.4-5.0); Calcium 8.3 mg/dL (8.5-10.1); Carbon Dioxide 21.4 meq/L (21.0-32.0); Potassium 5.3 meq/L (3.5-5.1)
[2017-11-23 11:41] LABS: Phosphorus 7.9 mg/dL (2.5-4.9)
[2017-11-23] MEDS: amLODIPine 5 MG Tablet PO SCH (11:52)
--- NOTE | 2017-11-23 12:47 | US ---
EXAM DATE: 11/23/2017 10:32 AM EDT AGE/SEX: 27 years / Male INDICATIONS: Increased BUN/Creatinine. CLINICAL DATA: This is the patient's initial encounter. Patient reports that signs and symptoms have been present for 1 day and indicates a pain score of 0/10. MEDICAL/SURGICAL HISTORY: Hypertension. Kidney failure. None. COMPARISON: None.. MEASUREMENTS: Right Kidney:__7.0 x 3.7 x 3.3 cm Left Kidney:__7.2 x 3.0 x 3.0 cm FINDINGS: Right Kidney: Increased echotexture. No mass or hydronephrosis. Left Kidney: Increased echotexture. No mass or hydronephrosis. Bladder: Within normal limits given the degree of distension. Other: None. CONCLUSION: The kidneys are small and atrophic in appearance with increased echogenicity characteri stic of medical renal disease. There is no hydronephrosis. Electronically signed by: Rubin Avitia MD 11/23/2017 11:46 AM EDT
[2017-11-23 13:22] LABS: Hepatitits B Surface Antigen Nonreactive (Nonreactive)
[2017-11-23 13:55] LABS: Hepatitis A IgM Antibody Nonreactive (Nonreactive)
[2017-11-23] MEDS ORDERED: hydrALAZINE 25 MG Tablet PO PRN (17:07)
[2017-11-24] MEDS: Acetaminophen 325 MG Tablet PO PRN (06:11)
[2017-11-24 07:06] LABS: Hematocrit 21.2 % (39.0-51.0); Hemoglobin 7.8 gm/dL (13.0-17.0); Mean Corpuscular Hemoglobin 33.5 pg (27.0-34.0); Mean Corpuscular Volume 91.4 fL (80.0-100.0); Mean Platelet Volume 7.5 fL (7.0-11.0); Platelet Count 210 th/mm3 (150-450); Red Blood Count 2.32 mil/mm3 (4.50-5.90); Red Cell Distribution Width 13.2 % (11.6-17.2); White Blood Count 10.1 th/mm3 (4.0-11.0)
[2017-11-24 07:45] LABS: Alanine Aminotransferase 15 U/L (12-78); Albumin 3.6 g/dL (3.4-5.0); Alkaline Phosphatase 57 U/L (45-117); Anion Gap 15 meq/L (5-15); Aspartate Aminotransferase 5 U/L (15-37); Blood Urea Nitrogen 65 mg/dL (7-18); Calcium 7.6 mg/dL (8.5-10.1); Carbon Dioxide 26.6 meq/L (21.0-32.0); Chloride 100 meq/L (98-107); Complement C3 86 mg/dL (90-180); Glomerular Filtration Rate 6 mL/min (>89); Glucose,Random 121 mg/dL (74-106); Magnesium 2.1 mg/dL (1.5-2.5); Potassium 4.2 meq/L (3.5-5.1); Sodium 142 meq/L (136-145); Total Protein 7.7 g/dL (6.4-8.2)
[2017-11-24 07:56] LABS: Mean Corpuscular HGB Conc 36.7 % (32.0-36.0)
[2017-11-24] MEDS ORDERED: Epoetin Alfa Inj 4,000 UNIT/ML Vial IV.PUSH SCH ×2 (10:38→19:31)
[2017-11-24] MEDS: Heparin 10,000 UNITS/10 ML Vial (for IV use) OTHER PRN (10:54)
--- NOTE | 2017-11-24 11:10 | P.PNFP ---
Subjective Interval history: Pt seen this morning while in dialysis. He states he had a bad headache all day and night yesterday and had difficulties sleeping due to that. He feels better this morning. He cannot tell any changes in his general well being after dialysis yesterday. Per Pt, his understanding is that dialysis is "curative" and his kidney function will be back to normal. I explained to him that this is irreversible damage, of unknown cause at this time. He will need dialysis 3 times a week, likely for the rest of his life. Unless there is a possibility of a kidney transplant that he needs to explore with Nephrology. I also discussed the need of a PCP as soon as he gets out of the hospital, I offered myself for follow up in the clinic, and mentioned there are also a few more providers that speak [place]uvian in our clinic. Pt's BP yesterday were elevated reaching 190/110, likely contributing to his headache. Pt denies N/V/ CP, eating and drinking ok. No fevers or chills. <Tiffani Bryson V - 11/24/17 11:10> Results - Labs Result diagrams: 11/24/17 06:06 11/24/17 06:06 <Sandra Quiroz R - 11/24/17 15:31> Abnormal lab results 11/24/17 11/24/17 11/24/17 Range/Units 06:06 06:06 06:06 RBC 2.32 L (4.50-5.90) mil/mm3 Hgb 7.8 L (13.0-17.0) gm/dL Hct 21.2 L (39.0-51.0) % MCHC 36.7 H (32.0-36.0) % BUN 65 H (7-18) mg/dL Creatinine 10.55 H* D (0.60-1.30) mg/dL Estimated GFR 6 L (>89) mL/min Random Glucose 121 H (74-106) mg/dL Calcium 7.6 L (8.5-10.1) mg/dL AST 5 L (15-37) U/L PTH Intact 467.0 H (12.4-76.8) pg/mL Complement C3 86 L (90-180) mg/dL Complement C4 41 H (10-40) mg/dL Short CBC 11/24/17 Range/Units 06:06 WBC 10.1 (4.0-11.0) th/mm3 Hgb 7.8 L (13.0-17.0) gm/dL Hct 21.2 L (39.0-51.0) % Plt Count 210 (150-450) th/mm3 BMP 11/24/17 06:06 Sodium 142 Potassium 4.2 D Chloride 100 Carbon Dioxide 26.6 BUN 65 H Creatinine 10.55 H* D Calcium 7.6 L Liver Function 11/24/17 Range/Units 06:06 Total Bilirubin 0.4 (0.2-1.0) mg/dL AST 5 L (15-37) U/L ALT 15 (12-78) U/L Alkaline Phosphatase 57 (45-117) U/L Albumin 3.6 (3.4-5.0) g/dL <Sandra Quiroz Meaghan - 11/24/17 15:31> Abnormal lab results 11/23/17 11/24/17 11/24/17 Range/Units 11:21 06:06 06:06 RBC (4.50-5.90) mil/mm3 Hgb (13.0-17.0) gm/dL Hct (39.0-51.0) % MCHC (32.0-36.0) % Potassium 5.3 H (3.5-5.1) meq/L BUN 114 H 65 H (7-18) mg/dL Creatinine 14.05 H* 10.55 H* D (0.60-1.30) mg/dL Estimated GFR 4 L 6 L (>89) mL/min Random Glucose 128 H 121 H (74-106) mg/dL Calcium 8.3 L 7.6 L (8.5-10.1) mg/dL Phosphorus 7.9 H D (2.5-4.9) mg/dL AST 5 L (15-37) U/L PTH Intact 467.0 H (12.4-76.8) pg/mL Complement C3 86 L (90-180) mg/dL Complement C4 41 H (10-40) mg/dL 11/24/17 Range/Units 06:06 RBC 2.32 L (4.50-5.90) mil/mm3 Hgb 7.8 L (13.0-17.0) gm/dL Hct 21.2 L (39.0-51.0) % MCHC 36.7 H (32.0-36.0) % Potassium (3.5-5.1) meq/L BUN (7-18) mg/dL Creatinine (0.60-1.30) mg/dL Estimated GFR (>89) mL/min Random Glucose (74-106) mg/dL Calcium (8.5-10.1) mg/dL Phosphorus (2.5-4.9) mg/dL AST (15-37) U/L PTH Intact (12.4-76.8) pg/mL Complement C3 (90-180) mg/dL Complement C4 (10-40) mg/dL Short CBC 11/24/17 Range/Units 06:06 WBC 10.1 (4.0-11.0) th/mm3 Hgb 7.8 L (13.0-17.0) gm/dL Hct 21.2 L (39.0-51.0) % Plt Count 210 (150-450) th/mm3 BMP 11/23/17 11/24/17 11:21 06:06 Sodium 142 142 Potassium 5.3 H 4.2 D Chloride 106 100 Carbon Dioxide 21.4 26.6 BUN 114 H 65 H Creatinine 14.05 H* 10.55 H* D Calcium 8.3 L 7.6 L Liver Function 11/23/17 11/24/17 Range/Units 11:21 06:06 Total Bilirubin 0.4 (0.2-1.0) mg/dL AST 5 L (15-37) U/L ALT 15 (12-78) U/L Alkaline Phosphatase 57 (45-117) U/L Albumin 3.9 3.6 (3.4-5.0) g/dL <Tiffani Bryson V - 11/24/17 11:10> - Imaging Impressions Abdomen/Bladder Ultrasound 11/23/17 10:32 CONCLUSION: The kidneys are small and atrophic in appearance with increased echogenicity characteristic of medical renal disease. There is no hydronephrosis. <Tiffani Bryson V - 11/24/17 11:10> Physical Exam Vital signs: Vital Signs 11/23/17 16:00 11/23/17 16:18 11/23/17 20:00 Temperature 99.3 F Pulse Rate 75 81 Respiratory Rate 20 Blood Pressure 190/110 H Pulse Oximetry 100 11/23/17 20:20 11/24/17 00:00 11/24/17 00:09 Temperature 99.9 F H 99.1 F Pulse Rate 80 85 100 H Respiratory Rate 20 20 Blood Pressure 137/81 131/87 Pulse Oximetry 96 99 11/24/17 04:00 11/24/17 04:34 11/24/17 08:00 Temperature 100.4 F H 99.6 F Pulse Rate 86 97 H 77 Respiratory Rate 18 16 Blood Pressure 137/82 132/74 Pulse Oximetry 99 99 11/24/17 09:00 11/24/17 12:00 Temperature 99.6 F Pulse Rate 77 84 Respiratory Rate 16 Blood Pressure 137/82 Pulse Oximetry 98 Intake & Output 11/23/17 11/24/17 11/24/17 18:59 06:59 18:59 Intake Total 200 / 200 680 / 680 Output Total 750 / 750 0 / 0 Balance -550 / -550 680 / 680 0 / 0 Weight 79 kg Intake: Oral 200 / 200 680 / 680 Output: Urine 750 / 750 Hemodialysis Amount 0 / 0 Other: # Voids 3 Date of Last Bowel Movement 11/21/17 11/21/17 <Sandra Quiroz - 11/24/17 15:31> Vital Signs 11/23/17 12:00 11/23/17 16:00 11/23/17 16:18 Temperature 98 F 99.3 F Pulse Rate 69 75 Respiratory Rate 18 20 Blood Pressure 148/76 H 190/110 H Pulse Oximetry 100 11/23/17 20:00 11/23/17 20:20 11/24/17 00:00 Temperature 99.9 F H Pulse Rate 81 80 85 Respiratory Rate 20 Blood Pressure 137/81 Pulse Oximetry 96 11/24/17 00:09 11/24/17 04:00 11/24/17 04:34 Temperature 99.1 F 100.4 F H Pulse Rate 100 H 86 97 H Respiratory Rate 20 18 Blood Pressure 131/87 137/82 Pulse Oximetry 99 99 11/24/17 08:00 Temperature 99.6 F Pulse Rate 85 Respiratory Rate 16 Blood Pressure 132/74 Pulse Oximetry 99 Intake & Output 11/23/17 11/24/17 11/24/17 18:59 06:59 18:59 Intake Total 200 / 200 680 / 680 Output Total 750 / 750 Balance -550 / -550 680 / 680 Weight 79 kg Intake: Oral 200 / 200 680 / 680 Output: Urine 750 / 750 Other: # Voids 3 Date of Last Bowel Movement 11/21/17 <Tiffani Bryson V - 11/24/17 11:10> Narrative: GENERAL: Well-nourished, well-developed patient. in NAD, laying comfortably in HD SKIN: Warm and dry. Port in R chest w/ no signs of infection. Pale HEAD: Normocephalic and atraumatic. EYES: No scleral icterus. No injection or drainage. ENT: No nasal drainage noted. Mucous membranes pink. Airway patent. CARDIOVASCULAR: Regular rate and rhythm without murmurs, gallops, or rubs. RESPIRATORY: Breath sounds equal bilaterally. No accessory muscle use. ABDOMEN/GI: Abdomen soft, non-tender, bowel sounds present, no guarding. EXTREMITIES: No cyanosis or edema. BACK: Nontender without obvious deformity. No CVA tenderness. NEUROLOGICAL: Awake and alert. Motor and sensory grossly within normal limits. Normal speech. <Tiffani Bryson V - 11/24/17 11:10> Assessment and Plan - Assessment (1) CKD (chronic kidney disease) stage V requiring chronic dialysis Code(s): N18.6 - End stage renal disease; Z99.2 - Dependence on renal dialysis Status: Chronic (2) Hypertension Code(s): I10 - Essential (primary) hypertension Status: Acute (3) Nutrition, metabolism, and development symptoms Code(s): R63.8 - Other symptoms and signs concerning food and fluid intake Status: Acute (4) DVT prophylaxis Status: Acute <Sandra Quiroz R - 11/24/17 15:31> (1) CKD (chronic kidney disease) stage V requiring chronic dialysis Code(s): N18.6 - End stage renal disease; Z99.2 - Dependence on renal dialysis Status: Chronic (2) Hypertension Code(s): I10 - Essential (primary) hypertension Status: Acute (3) Nutrition, metabolism, and development symptoms Code(s): R63.8 - Other symptoms and signs concerning food and fluid intake Status: Acute (4) DVT prophylaxis Status: Acute <Tiffani Bryson V - 11/24/17 10:22> - Assessment and Plan 27 yr old male with recent discovered hypertension (within the last 6 months), recently diagnosed with Chronic Kidney Disease stage V while in [place]. Pt seen in [place] and started on dialysis. Some workup was done but he does not know what the etiology of kidney disease is. pt's creatinine on admission is 12.88 w/ BUN of 94. Pt received partial dialysis yesterday per nephrology, and full dialysis today. Pt's cause of kidney failure is still unknown, his elevated BP is likely a contributing factor. Kidney US showed small and atrophic kidneys with increased echogenicity characteristic of medical renal disease. Pt had elevated BP yesterday reaching as high as 190/ 110. Amlodipine was held during the day with anticipation of a lower BP after dialysis. Instead his BP increased. He received a one time dose of Hydralazine 25 mg PO. His BP this morning seem better controlled, mainly in the high 130s/ 80. Will re-assess patient after dialysis and decide on a home regimen for his BP control. Pt will need follow up with a PCP, as well as Nephrology outpatient. CM consulted and working on outpatient dialysis. I spoke with Terry this morning, who states he is working to obtain pt's information about length of stay in the [place] which will determine his ability to qualify for Medicaid. At this point, this process will take several days, likely including the weekend. Plan: Chronic Kidney Disease of unknown etiology DDX include but not limited to longstanding HTN v autoimmune v genetic disease. Pt is otherwise 27 yr old and previously healthy - [place] workup very limited, see addendum for detail information. - Admitting Cr of 12.88 BUN 94 GFR 5 Phosphorus 7.5 - Today's labs: Cr 10.88, BUN 65, K 4.2, PTH 467 H - Pt receiving dialysis this morning - Furosemide not seen in any records. will stop for now - Repeat AM labs Hypertension - Pt diagnosed 6 months ago. - Bp elevated yesterday prior to dialysis: 190/110 -> received 25mg PO Hydralazine - BP in the 130/80 rest of day and today. Will continue to monitor - Amlodipine 5mg po daily on hold for now. - Clonidine 0.1mg PO PRN for Systolic >180 or Diastolic >110 - Hydralazine 25mg PO PRN as well - Will re-assess medication for BP after dialysis FEN & DVT prophylaxis - Renal diet, PO intake. Monitor electrolytes closely. - SCDs bilateral Disposition: CM on board. Terry is working to obtain pt's information about length of stay in the [place] which will determine his ability to qualify for Medicaid. At this point, this process will take several days, likely including the weekend. <Tiffani Bryson V - 11/24/17 11:10> - Attending Attestation The exam, history, and the medical decision-making described in the above note were completed with the assistance of the resident physician. I reviewed and agree with the findings presented. I attest that I had a [id number] encounter with the patient on the same day, and personally performed and documented my assessment and findings in the medical record. check a1C - fbs mildly elevated <Sandra Quiroz - 11/24/17 15:31>
[2017-11-24] MEDS: Senna/Docusate Sodium 8.6/50 MG Tablet PO SCH ×2 (12:11→20:58)
[2017-11-24] MEDS: Sodium Chloride 0.9% 2 ML Flush BID IV.FLUSH SCH ×2 (12:12→20:58)
--- NOTE | 2017-11-24 19:27 | P.PNNP ---
Subjective Interval history: This patient is a 27-year-old male of [place] origin now residing in the [facility]. Patient denies any previous medical problems to his knowledge including hypertension and diabetes as well as collagen vascular disease. The patient recently went to [place] about 2 weeks ago for vacation. Prior to leaving he stated that he felt tired. Subsequently developed nausea and vomiting and sought medical attention and was diagnosed as having kidney failure and dialysis was initiated in [place]. Patient had a dialysis session about 3 days ago in [place]. Presented to the emergency room noted to have a creatinine of 12.8 and BUN of 94 hemoglobin 8.3. Patient resides in [place]. Denies any childhood history suggestive of a nephritis. No family history of renal failure. Denies using NSAIDs for analgesia. Also denying a history of hepatitis. 11/24/17 Pt seen in room with mother and father present. Initially, I was using [employer] translation service, but lost connection and couldn't reconnect; therefore his friend, Lilly, translated via telephone. He is s/p 2 sessions of HD thus far in house and says he is feeling OK. Does have a cough and noted Tmax of 100.4 today. Again endorses no know renal issues in the past and no long-standing BP issues. <Darlene Finnegan - Last Filed: 11/24/17 19:07> Physical Exam Vital signs: Vital Signs 11/23/17 20:00 11/23/17 20:20 11/24/17 00:00 Temperature 99.9 F H Pulse Rate 81 80 85 Respiratory Rate 20 Blood Pressure 137/81 Pulse Oximetry 96 11/24/17 00:09 11/24/17 04:00 11/24/17 04:34 Temperature 99.1 F 100.4 F H Pulse Rate 100 H 86 97 H Respiratory Rate 20 18 Blood Pressure 131/87 137/82 Pulse Oximetry 99 99 11/24/17 08:00 11/24/17 09:00 11/24/17 12:00 Temperature 99.6 F 99.6 F Pulse Rate 77 77 84 Respiratory Rate 16 16 Blood Pressure 132/74 137/82 Pulse Oximetry 99 98 11/24/17 16:00 11/24/17 17:51 Temperature 99.4 F Pulse Rate 87 Respiratory Rate 16 Blood Pressure 136/81 Pulse Oximetry 99 99 Intake & Output 10/12/0211/24/17 11/25/17 06:59 18:59 06:59 Intake Total 680 / 680 Output Total 400 / 400 Balance 680 / 680 -400 / -400 Weight 79 kg Intake: Oral 680 / 680 Output: Urine 400 / 400 Hemodialysis Amount 0 / 0 Other: # Voids 3 Date of Last Bowel Movement 11/24/17 - Constitutional no acute distress - Routine HEENT Exam Head: Present: normocephalic - Routine Neck Exam Present: supple - Routine Respiratory Exam Present: CTA bilaterally - Routine Cardiovascular Exam Present: RRR, S1, S2. Absent: murmur - Routine Abdominal Exam Present: soft - Routine Extremities Exam Absent: edema - Routine Skin Exam Present: intact - Routine Neurological Exam Present: alert, oriented X3 <Darlene Finnegan - Last Filed: 11/24/17 19:07> Vital signs: Vital Signs 11/24/17 17:51 11/24/17 20:00 11/25/17 00:00 Temperature 100.0 F H 100.9 F H Pulse Rate 85 108 H Respiratory Rate 20 20 Blood Pressure 152/84 H 139/85 Pulse Oximetry 99 99 100 11/25/17 00:04 11/25/17 04:00 11/25/17 08:00 Temperature 99.4 F 99 F Pulse Rate 88 89 89 Respiratory Rate 20 18 Blood Pressure 129/69 135/78 Pulse Oximetry 98 98 11/25/17 09:00 11/25/17 10:04 11/25/17 12:00 Temperature 98.8 F Pulse Rate 99 H 91 H Respiratory Rate 18 Blood Pressure 134/70 Pulse Oximetry 99 91 L 11/25/17 15:43 Temperature 99.4 F Pulse Rate 86 Respiratory Rate 18 Blood Pressure 165/99 H Pulse Oximetry 99 Intake & Output 11/24/17 11/25/17 11/25/17 18:59 06:59 18:59 Intake Total 380 / 380 250 / 250 Output Total 400 / 400 Balance -400 / -400 380 / 380 250 / 250 Intake: IV 250 / 250 Vancomycin Inj 1,000 MG In NS 150 / 150 Inj 250 ML @ 250 mls/hr IV.SIG ONCE ONE Rx#:[id number] Tazicef Inj 1,000 MG In NS Inj 100 / 100 100 ML @ 200 mls/hr IV.SIG ONCE ONE Rx#:[id number] Oral 380 / 380 Output: Urine 400 / 400 Hemodialysis Amount 0 / 0 Other: # Voids 2 Date of Last Bowel Movement 11/24/17 11/24/17 <Bruce Whitney - Last Filed: 11/25/17 17:28> Assessment and Plan - Assessment (1) CKD (chronic kidney disease) stage V requiring chronic dialysis Code(s): N18.6 - End stage renal disease; Z99.2 - Dependence on renal dialysis Status: Chronic Plan: Patient presently has renal failure. Duration uncertain presently and etiology not entirely clear. Renal US reveals very atrophic kidneys measured at 7cm each with increased echogenicity indicative of chronic renal disease. Other work up at this point negative. Given his renal atrophy, it is doubtful that a renal biopsy would yield any reliable results and is not felt to be beneficial at this time as it would not change treatment course. As discussed with the patient and his family, it does appear that he is end- stage renal disease at this point in time and will require dialysis long-term. I am under the understanding that emergency Medicaid has been applied for, but will also have to have Medicare to be accepted at most (if not all) outpatient dialysis facilities; he was advised that this process can take upwards of 60-90 days. We do appreciate case management assistance in this regard. As he will likely not have an accepting outpatient dialysis facility until he has both Medicaid and Medicare, he will likely have to remain inpatient until this can be arranged. He does live in [place] and likely would not meet requirements for transitional dialysis program because of this. His family was inquiring about transplant, and I do feel that he is a good candidate to be worked up, but again the issues is a payor source. Will await finalization of screening labs to give us insight on underlying etiology, but unfortunately we not be able to provide this answer for the patient. We will consult vascular surgery to see if they would be agreeable for AVF placement while in hospital as he has a LIJ PermCath. The patient was provided educational handouts regarding long-term dialysis, access, and diet (in Samoan) . Will tentatively keep the patient on MWF hemodialysis schedule with next HD 02/01. Medication should be adjusted for the patient's renal failure when indicated. Avoid gadolinium which is contraindicated. (2) Secondary hyperparathyroidism (of renal origin) Code(s): N25.81 - Secondary hyperparathyroidism of renal origin Status: Acute Plan: iPTH level elevated and Vitamin D 25-OH levels are within acceptable range. Has SHPT of renal disease. Will start on Calcitriol 0.25mcg daily. Goal range for iPTH to be between 150-300. (3) Anemia of renal disease Code(s): D63.1 - Anemia in chronic kidney disease Status: Acute Plan: Check iron stores. Likely has underlying anemia of renal disease. Will start on erythropoietin with HD this coming Wednesday. (4) Hyperphosphatemia Code(s): E83.39 - Other disorders of phosphorus metabolism Status: Acute Plan: Related to ESRD. Start on PhosLo with meals. (5) Fever Code(s): R50.9 - Fever, unspecified Status: Acute Plan: Etiology unknown, but resolved as of this afternoon. Does have a cough, but as he has a PermCath, I will order BCx to ensure no underlying bacteremia. If fever spikes again, will start on Vanco and Fortaz until BCx results. Additional work up if will be left to the primary team. - Plan Patient presently has renal failure. Duration uncertain presently and etiology not entirely clear. Renal US reveals very atrophic kidneys measured at 7cm each with increased echogenicity indicative of chronic renal disease. Other work up at this point negative. Given his renal atrophy, it is doubtful that a renal biopsy would yield any reliable results and is not felt to be beneficial at this time as it would not change treatment course. As discussed with the patient and his family, it does appear that he is end- stage renal disease at this point in time and will require dialysis long-term. I am under the understanding that emergency Medicaid has been applied for, but will also have to have Medicare to be accepted at most (if not all) outpatient dialysis facilities; he was advised that this process can take upwards of 60-90 days. We do appreciate case management assistance in this regard. As he will likely not have an accepting outpatient dialysis facility until he has both Medicaid and Medicare, he will likely have to remain inpatient until this can be arranged. He does live in [place] and likely would not meet requirements for transitional dialysis program because of this. His family was inquiring about transplant, and I do feel that he is a good candidate to be worked up, but again the issues is a payor source. Will await finalization of screening labs to give us insight on underlying etiology, but unfortunately we not be able to provide this answer for the patient. We will consult vascular surgery to see if they would be agreeable for AVF placement while in hospital as he has a LIJ PermCath. The patient was provided educational handouts regarding long-term dialysis, access, and diet (in Samoan) . Will tentatively keep the patient on MWF hemodialysis schedule with next HD 02/01. Medication should be adjusted for the patient's renal failure when indicated. Avoid gadolinium which is contraindicated. <Darlene Finnegan - Last Filed: 11/24/17 19:07> - Assessment (1) CKD (chronic kidney disease) stage V requiring chronic dialysis Code(s): N18.6 - End stage renal disease; Z99.2 - Dependence on renal dialysis Status: Chronic (2) Secondary hyperparathyroidism (of renal origin) Code(s): N25.81 - Secondary hyperparathyroidism of renal origin Status: Acute (3) Anemia of renal disease Code(s): D63.1 - Anemia in chronic kidney disease Status: Acute (4) Hyperphosphatemia Code(s): E83.39 - Other disorders of phosphorus metabolism Status: Acute (5) Fever Code(s): R50.9 - Fever, unspecified Status: Acute - Attending Attestation The exam, history, and the medical decision-making described in the above note were completed with the assistance of the PASusana. I reviewed and agree with the findings presented. I attest that I had a [id number] encounter with the patient on the same day, and personally performed and documented my assessment and findings in the medical record. We will continue to follow patient during this admission but outpatient nephrology care will have to be arranged by case management. Patient will need an outpatient clothes marker as well as an outpatient dialysis facility. <Bruce Whitney - Last Filed: 11/25/17 17:28>
[2017-11-24] MEDS ORDERED: Benzonatate 100 MG Capsule PO PRN (19:34)
[2017-11-25 08:10] LABS: Baso # (Auto) 0.1 th/mm3 (0.0-0.2); Baso % (Auto) 1.1 % (0.0-2.0); Eos # (Auto) 0.3 th/mm3 (0.0-0.4); Eos % (Auto) 3.6 % (0.0-4.0); Hemoglobin 8.1 gm/dL (13.0-17.0); Lymph # (Auto) 1.1 th/mm3 (1.0-4.8); Lymph % (Auto) 13.1 % (9.0-44.0); Mean Corpuscular HGB Conc 35.1 % (32.0-36.0); Mean Corpuscular Volume 94.2 fL (80.0-100.0); Mean Platelet Volume 7.2 fL (7.0-11.0); Mono # (Auto) 0.9 th/mm3 (0.0-0.9); Mono % (Auto) 10.6 % (0.0-8.0); Neut % (Auto) 71.6 % (16.0-70.0); Platelet Count 182 th/mm3 (150-450); Red Blood Count 2.44 mil/mm3 (4.50-5.90); Red Cell Distribution Width 13.1 % (11.6-17.2); White Blood Count 8.4 th/mm3 (4.0-11.0)
[2017-11-25 08:18] LABS: Albumin 3.7 g/dL (3.4-5.0); Calcium 8.5 mg/dL (8.5-10.1); Carbon Dioxide 28.8 meq/L (21.0-32.0); Phosphorus 5.3 mg/dL (2.5-4.9); Potassium 4.6 meq/L (3.5-5.1)
[2017-11-25] MEDS: Calcitriol 0.25 MCG Capsule PO SCH (08:54)
[2017-11-25] MEDS: Calcium Acetate 667 MG Capsule PO SCH ×3 (08:54→18:14)
[2017-11-25] MEDS: Senna/Docusate Sodium 8.6/50 MG Tablet PO SCH ×2 (08:54→20:21)
[2017-11-25] MEDS: Sodium Chloride 0.9% 2 ML Flush BID IV.FLUSH SCH ×2 (08:55→20:21)
--- NOTE | 2017-11-25 10:07 | P.PNFP ---
Subjective Interval history: Pt seen and examined this morning. He is feeling well, had a low grade fever last night but feels ok this morning. Has no questions at this time. We reviewed the plan of care that nephrology had discussed with him yesterday. No N /V. No fevers or chills, no CP, no shortness of breath. Has a cough, not present on admission. <All SimsTiffaniDebi - 11/25/17 10:07> Results - Labs Result diagrams: 11/25/17 06:54 11/25/17 06:54 <Sandra Quiroz R - 11/25/17 15:32> Abnormal lab results 11/25/17 11/25/17 Range/Units 06:54 06:54 RBC 2.44 L (4.50-5.90) mil/mm3 Hgb 8.1 L (13.0-17.0) gm/dL Hct 23.0 L (39.0-51.0) % Neut % (Auto) 71.6 H (16.0-70.0) % [place] % (Auto) 10.6 H (0.0-8.0) % BUN 51 H (7-18) mg/dL Creatinine 9.56 H (0.60-1.30) mg/dL Estimated GFR 7 L (>89) mL/min Phosphorus 5.3 H D (2.5-4.9) mg/dL Iron 22 L (65-175) mcg/dL TIBC 200 L (250-450) mcg/dL % Saturation 11.0 L (20-50) % Ferritin 465 H (26-388) ng/mL Short CBC 11/25/17 Range/Units 06:54 WBC 8.4 (4.0-11.0) th/mm3 Hgb 8.1 L (13.0-17.0) gm/dL Hct 23.0 L (39.0-51.0) % Plt Count 182 (150-450) th/mm3 BMP 11/25/17 06:54 Sodium 139 Potassium 4.6 Chloride 101 Carbon Dioxide 28.8 BUN 51 H Creatinine 9.56 H Calcium 8.5 D Liver Function 11/25/17 Range/Units 06:54 Albumin 3.7 (3.4-5.0) g/dL <Sandra Quiroz R - 11/25/17 15:32> Abnormal lab results 11/25/17 11/25/17 Range/Units 06:54 06:54 RBC 2.44 L (4.50-5.90) mil/mm3 Hgb 8.1 L (13.0-17.0) gm/dL Hct 23.0 L (39.0-51.0) % Neut % (Auto) 71.6 H (16.0-70.0) % [place] % (Auto) 10.6 H (0.0-8.0) % BUN 51 H (7-18) mg/dL Creatinine 9.56 H (0.60-1.30) mg/dL Estimated GFR 7 L (>89) mL/min Phosphorus 5.3 H D (2.5-4.9) mg/dL Iron 22 L (65-175) mcg/dL TIBC 200 L (250-450) mcg/dL % Saturation 11.0 L (20-50) % Ferritin 465 H (26-388) ng/mL Short CBC 11/25/17 Range/Units 06:54 WBC 8.4 (4.0-11.0) th/mm3 Hgb 8.1 L (13.0-17.0) gm/dL Hct 23.0 L (39.0-51.0) % Plt Count 182 (150-450) th/mm3 BMP 11/25/17 06:54 Sodium 139 Potassium 4.6 Chloride 101 Carbon Dioxide 28.8 BUN 51 H Creatinine 9.56 H Calcium 8.5 D Liver Function 11/25/17 Range/Units 06:54 Albumin 3.7 (3.4-5.0) g/dL <Tiffani Bryson V - 11/25/17 10:07> - Imaging Impressions Upper Extremity Ultrasound 11/25/17 00:00 CONCLUSION: Bilateral upper extremity venous mapping as above. Venous Doppler Study 11/25/17 00:00 CONCLUSION: 1. The study is negative for bilateral upper extremity deep venous thrombosis. <Sandra Quiroz - 11/25/17 15:32> Physical Exam Vital signs: Vital Signs 11/24/17 16:00 11/24/17 17:51 11/24/17 20:00 Temperature 99.4 F 100.0 F H Pulse Rate 87 85 Respiratory Rate 16 20 Blood Pressure 136/81 152/84 H Pulse Oximetry 99 99 99 11/25/17 00:00 11/25/17 00:04 11/25/17 04:00 Temperature 100.9 F H 99.4 F Pulse Rate 108 H 88 89 Respiratory Rate 20 20 Blood Pressure 139/85 129/69 Pulse Oximetry 100 98 11/25/17 08:00 11/25/17 10:04 11/25/17 12:00 Temperature 99 F 98.8 F Pulse Rate 89 91 H Respiratory Rate 18 18 Blood Pressure 135/78 134/70 Pulse Oximetry 98 99 91 L Intake & Output 11/24/17 11/25/17 11/25/17 18:59 06:59 18:59 Intake Total 380 / 380 250 / 250 Output Total 400 / 400 Balance -400 / -400 380 / 380 250 / 250 Intake: IV 250 / 250 Vancomycin Inj 1,000 MG In NS 150 / 150 Inj 250 ML @ 250 mls/hr IV.SIG ONCE ONE Rx#:[id number] Tazicef Inj 1,000 MG In NS Inj 100 / 100 100 ML @ 200 mls/hr IV.SIG ONCE ONE Rx#:[id number] Oral 380 / 380 Output: Urine 400 / 400 Hemodialysis Amount 0 / 0 Other: # Voids 2 Date of Last Bowel Movement 11/24/17 11/24/17 <Sandra Quiroz - 11/25/17 15:32> Vital Signs 11/24/17 12:00 11/24/17 16:00 11/24/17 17:51 Temperature 99.6 F 99.4 F Pulse Rate 84 87 Respiratory Rate 16 16 Blood Pressure 137/82 136/81 Pulse Oximetry 98 99 99 11/24/17 20:00 11/25/17 00:00 11/25/17 00:04 Temperature 100.0 F H 100.9 F H Pulse Rate 85 108 H 88 Respiratory Rate 20 20 Blood Pressure 152/84 H 139/85 Pulse Oximetry 99 100 11/25/17 04:00 11/25/17 08:00 Temperature 99.4 F 99 F Pulse Rate 89 89 Respiratory Rate 20 18 Blood Pressure 129/69 135/78 Pulse Oximetry 98 98 Intake & Output 11/24/17 11/25/17 11/25/17 18:59 06:59 18:59 Intake Total 380 / 380 Output Total 400 / 400 Balance -400 / -400 380 / 380 Intake: Oral 380 / 380 Output: Urine 400 / 400 Hemodialysis Amount 0 / 0 Other: # Voids 2 Date of Last Bowel Movement 11/24/17 11/24/17 <Tiffani Bryson V - 11/25/17 10:07> Narrative: GENERAL: Well-nourished, well-developed patient. in NAD, laying comfortably in bed SKIN: Warm and dry. Port in R chest w/ no signs of infection. Pale appearance. HEAD: Normocephalic and atraumatic. EYES: No scleral icterus. No injection or drainage. ENT: No nasal drainage noted. Mucous membranes pink. Airway patent. CARDIOVASCULAR: Regular rate and rhythm without murmurs, gallops, or rubs. RESPIRATORY: Breath sounds equal bilaterally. No accessory muscle use. Coughing during exam. ABDOMEN/GI: Abdomen soft, non-tender, bowel sounds present, no guarding. EXTREMITIES: No cyanosis or edema. NEUROLOGICAL: Awake and alert. Motor and sensory grossly within normal limits. Normal speech. <Tiffani Bryson V - 11/25/17 10:07> Assessment and Plan - Assessment (1) CKD (chronic kidney disease) stage V requiring chronic dialysis Code(s): N18.6 - End stage renal disease; Z99.2 - Dependence on renal dialysis Status: Chronic (2) Hypertension Code(s): I10 - Essential (primary) hypertension Status: Acute (3) Nutrition, metabolism, and development symptoms Code(s): R63.8 - Other symptoms and signs concerning food and fluid intake Status: Acute (4) DVT prophylaxis Status: Acute <Sandra Quiroz R - 11/25/17 15:32> (1) CKD (chronic kidney disease) stage V requiring chronic dialysis Code(s): N18.6 - End stage renal disease; Z99.2 - Dependence on renal dialysis Status: Chronic (2) Hypertension Code(s): I10 - Essential (primary) hypertension Status: Acute (3) Nutrition, metabolism, and development symptoms Code(s): R63.8 - Other symptoms and signs concerning food and fluid intake Status: Acute (4) DVT prophylaxis Status: Acute <Tiffani Bryson V - 11/25/17 09:20> - Assessment and Plan 27 yr old male with recent discovered hypertension (within the last 6 months), recently diagnosed with Chronic Kidney Disease stage V while in [place]. Pt seen in [place] and started on dialysis. Some workup was done but he does not know what the etiology of kidney disease is. pt's creatinine on admission is 12.88 w/ BUN of 94. Pt is being managed by nephrology with plans for dialysis MWF. Pt's cause of kidney failure is still unknown, his elevated BP is likely a contributing factor. Kidney US showed small and atrophic kidneys with increased echogenicity characteristic of medical renal disease. Pt will need follow up with a PCP, as well as Nephrology outpatient. CM consulted and working on outpatient dialysis. Plan: Chronic Kidney Disease of unknown etiology DDX include but not limited to longstanding HTN v autoimmune v genetic disease. Pt is otherwise 27 yr old and previously healthy [place] workup very limited, see addendum for detail information. Admitting Cr of 12.88 BUN 94 GFR 5 Phosphorus 7.5 Today's labs: Cr 9.56, BUN 51, K 4.6 Plan to receive dialysis MWF Biopsy will not add any new benefit at this time, per nephrology note Vascular surgery consulted to possible get an AV fistula while inpatient Hypertension Pt diagnosed 6 months ago. Only one elevated BP noted in the last 24 hr 152/84 Amlodipine 5mg po daily Clonidine 0.1mg PO PRN for Systolic >180 or Diastolic >110 Hydralazine 25mg PO PRN as well Hyperparathyroidism of renal origin PTH elevated w/ normal Vitamin D 25-OH Nephrology managing Started on Calcitriol 0.25mcg qday Hyperphosphatemia Related to ESRD Nephrology managing Started on PhosLo w/ meals Anemia of renal disease Hb 8.1 L, Iron 22 L, TIBC 200 L, %Sat 11.0 L, Ferritin 465 H Will start EPO w/ HD tomorrow Fever Low grade fever yesterday and overnight, 100.4F and 100.9F, resolved this morning. No signs of infection on physical exam, but pt has a cough No leukocytosis but increased neutrophil count to 71.6 Blood cultures pending per nephrology Will consider getting a CXR if persist FEN & DVT prophylaxis Renal diet, PO intake. Monitor electrolytes closely. SCDs bilateral Disposition: CM on board. Terry is working to obtain pt's information about length of stay in the [place] which will determine his ability to qualify for Medicaid. At this point, this process will take several days, likely including the weekend. Pt will remain inpatient. <Tiffani Bryson V - 11/25/17 10:07> - Attending Attestation The exam, history, and the medical decision-making described in the above note were completed with the assistance of the resident physician. I reviewed and agree with the findings presented. I attest that I had a [id number] encounter with the patient on the same day, and personally performed and documented my assessment and findings in the medical record. <Sandra Quiroz R - 11/25/17 15:32>
--- NOTE | 2017-11-25 10:42 | P.CONVS ---
History of Present Illness Service: Vascular surgery Consult date: 11/25/17 Reason for Consult: Chronic kidney disease requiring hemodialysis needing access Primary Care Provider: No Primary Care Physician Chief Complaint: Chronic kidney requiring dialysis History of Present Illness: 27-year-old A[place]i male with a past medical history of chronic kidney disease who receives hemodialysis via a right internal jugular vein permacath. He was admitted to the hospital with acute episode of nausea and vomiting. Vascular surgery was consulted for arteriovenous access creation. Patient is right- handed. He denies any chest pain or shortness of breath. Review of Systems All other systems reviewed negative except as stated in [facility] - History History Provided By: Patient, Family Member - Medical History Medical History: Medical History (Last Reviewed 11/22/17 @ 14:07 by Tiffani Sims MD, R1 ) HTN (hypertension) Kidney failure - Surgical History Surgical History: Surgical History (Last Updated 11/23/17 @ 10:58 by Bruce Whitney MD) S/P hemodialysis catheter insertion - Tobacco History Second Hand Smoke Exposure: No Smoking Status: Never smoker - Alcohol History How Often Do You Have a Drink Containing Alcohol: Never - Substance Use History Substance History: No History of Abuse - Travel History Recent Travel in the [place] Within the Last 8 Weeks: No Recent Travel Out of the Country Within the Last 8 Weeks: Yes - Immunization History Tetanus Immunization: Unsure Medications and Allergies Active Medications: Active Medications Acetaminophen (Tylenol) 650 mg PO Q4H PRN PRN Reason: PAIN SCALE 1 TO 10 Last Admin: 11/24/17 06:11 Dose: 650 mg Al Hydroxide/Mg Hydroxide (Milk Of Magnshy Liq) 30 ml PO Q12H PRN PRN Reason: Mild Constipation Amlodipine Besylate (Norvasc) 5 mg PO DAILY [facility] Benzonatate (Tessalon Perles) 200 mg PO Q8H PRN PRN Reason: COUGH Bisacodyl (Dulcolax Supp) 10 mg RECTAL DAILY PRN PRN Reason: SEVERE CONSITIPATION Calcitriol (Rocaltrol) 0.25 mcg PO DAILY [facility] Last Admin: 11/25/17 08:54 Dose: 0.25 mcg Calcium Acetate (Phoslo) 667 mg PO TID [facility] Last Admin: 11/25/17 08:54 Dose: 667 mg Clonidine HCl (Catapres) 0.1 mg PO Q6H PRN PRN Reason: HYPERTENSION Clonidine HCl (Catapres) 0.1 mg PO UNSCH PRN PRN Reason: SEE LABEL COMMENTS Diphenhydramine HCl (Benadryl) 25 mg PO UNSCH PRN PRN Reason: SEE LABEL COMMENTS Epoetin Jaziel (Epogen Inj) 8,000 unit IV.PUSH MOWEFR JEANNA Gelatin (Gelfoam 12 Mm/7 Mm Topical) 1 foam TOPICAL PRN PRN PRN Reason: help stop bleeding from site Gentamicin Sulfate (Gentamicin Inj) 20 mg OTHER WITH DIALYSIS PRN PRN Reason: Dwell Gentamycin Lock Last Admin: 11/24/17 10:54 Dose: 20 mg Heparin Sodium (Porcine) (Heparin Inj) 8,000 units OTHER WITH DIALYSIS PRN PRN Reason: for machine prime Heparin Sodium (Porcine) (Heparin Inj) 1,000 units OTHER WITH DIALYSIS PRN PRN Reason: Dwell Heparin to Fill Catheter Last Admin: 11/24/17 10:54 Dose: 1,000 units Hydralazine HCl (Apresoline) 25 mg PO Q8H PRN PRN Reason: SBP> OR = 180, DBP> OR = 100 Last Admin: 11/23/17 17:31 Dose: 25 mg Albumin Human (Flexbumin 25% Inj) 100 mls @ 60 mls/hr IV.SIG WITH DIALYSIS PRN PRN Reason: hypotension / volume replace Sodium Chloride (Ns Inj) 1,000 mls @ 0 mls/hr OTHER .Q0M PRN PRN Reason: for prime and rinse back Sodium Chloride (Ns Inj) 1,000 mls @ 200 mls/hr OTHER .Q5H PRN PRN Reason: for dialyzer flush PRN Sodium Chloride (Ns Inj) 1,000 mls @ 0 mls/hr IV.CONT .Q0M PRN PRN Reason: hypotension / volume replace Vancomycin HCl 1,000 mg/ (Sodium Chloride) 250 mls @ 250 mls/hr IV.SIG ONCE ONE Stop: 11/25/17 11:59 Lactulose (Lactulose Liq) 30 ml PO DAILY PRN PRN Reason: SEVERE CONSITIPATION Nitroglycerin (Nitrostat Sl) 0.4 mg SL Q5M PRN PRN Reason: CHEST PAIN Ondansetron HCl (Zofran Inj) 4 mg IV.PUSH Q6H PRN PRN Reason: NAUSEA OR VOMITING Ondansetron HCl (Zofran Inj) 4 mg IV.PUSH UNSCH PRN PRN Reason: NAUSEA OR VOMITING Senna/Docusate Sodium (Ana-Colace) 1 tab PO BID [facility] Last Admin: 11/25/17 08:54 Dose: 1 tab Sennosides (Senokot) 17.2 mg PO Q12H PRN PRN Reason: Moderate Constipation Sodium Chloride (Ns Flush) 2 ml IV.FLUSH UNSCH PRN PRN Reason: FLUSH AFTER USING IV ACCESS Sodium Chloride (Ns Flush) 2 ml IV.FLUSH BID [facility] Last Admin: 11/25/17 08:55 Dose: 2 ml Sodium Chloride (Ns Flush) 5 ml IV.FLUSH PRN PRN PRN Reason: flush each lumen during HD Allergies Allergy/AdvReac Type Severity Reaction Status Date / Time No Known Allergies Allergy Verified 11/21/17 21:16 Home Medications Medication Instructions Recorded Confirmed Type Lasix 40 tab PO DAILY 11/21/17 11/21/17 History amlodipine [Norvasc] 5 mg PO DAILY 11/21/17 11/21/17 History Physical Exam Vital Signs / I&O: Vital Signs 11/24/17 12:00 11/24/17 16:00 11/24/17 17:51 Temperature 99.6 F 99.4 F Pulse Rate 84 87 Respiratory Rate 16 16 Blood Pressure 137/82 136/81 Pulse Oximetry 98 99 99 11/24/17 20:00 11/25/17 00:00 11/25/17 00:04 Temperature 100.0 F H 100.9 F H Pulse Rate 85 108 H 88 Respiratory Rate 20 20 Blood Pressure 152/84 H 139/85 Pulse Oximetry 99 100 11/25/17 04:00 11/25/17 08:00 11/25/17 10:04 Temperature 99.4 F 99 F Pulse Rate 89 89 Respiratory Rate 20 18 Blood Pressure 129/69 135/78 Pulse Oximetry 98 98 99 Intake & Output 11/24/17 11/25/17 11/25/17 18:59 06:59 18:59 Intake Total 380 / 380 Output Total 400 / 400 Balance -400 / -400 380 / 380 Intake: Oral 380 / 380 Output: Urine 400 / 400 Hemodialysis Amount 0 / 0 Other: # Voids 2 Date of Last Bowel Movement 11/24/17 11/24/17 Neuro: Alert awake oriented x3, no neurological deficits identified in exam Neck: Supple, no adenopathy Heart: Normal S1-S2, regular rate and rhythm Lungs: Clear to auscultation bilaterally Abdomen: Soft nontender nondistended Vascular: Negative Olman test bilaterally, palpable radial pulses bilaterally Extremities: Palpable pedal pulses bilaterally Laboratory Results - last 24 hr 11/24/17 11/25/17 11/25/17 06:06 06:54 06:54 WBC 8.4 RBC 2.44 L Hgb 8.1 L Hct 23.0 L MCV 94.2 MCH 33.0 MCHC 35.1 RDW 13.1 Plt Count 182 MPV 7.2 Neut % (Auto) 71.6 H Lymph % (Auto) 13.1 Tift % (Auto) 10.6 H Eos % (Auto) 3.6 Baso % (Auto) 1.1 Neut # (Auto) 6.0 Lymph # (Auto) 1.1 Tift # (Auto) 0.9 Eos # (Auto) 0.3 Baso # (Auto) 0.1 WBC Differential . Differential Comment Auto diff final Sodium 139 Potassium 4.6 Chloride 101 Carbon Dioxide 28.8 Anion Gap 9 BUN 51 H Creatinine 9.56 H Estimated GFR 7 L Random Glucose 99 Calcium 8.5 D Phosphorus 5.3 H D Iron 22 L TIBC 200 L % Saturation 11.0 L Ferritin 465 H Albumin 3.7 ABISAI Screen Neg Impressions Abdomen/Bladder Ultrasound 11/23/17 10:32 CONCLUSION: The kidneys are small and atrophic in appearance with increased echogenicity characteristic of medical renal disease. There is no hydronephrosis. Assessment and Plan - Assessment (1) CKD (chronic kidney disease) stage V requiring chronic dialysis Code(s): N18.6 - End stage renal disease; Z99.2 - Dependence on renal dialysis Status: Chronic (2) Hypertension Code(s): I10 - Essential (primary) hypertension Status: Acute - Plan 1-we will obtain vein mapping to plan AV fistula. 2-We will plan AV fistula creation tomorrow after hemodialysis. Thank you very much for allowing me to participate in this patient care. For any questions please do not hesitate to call my cell phone [phone]
--- NOTE | 2017-11-25 10:50 | US ---
EXAM DATE: 11/25/2017 12:00 AM EDT AGE/SEX: 27 years / Male INDICATIONS: Dialysis access. CLINICAL DATA: This is the patient's initial encounter. Patient reports that signs and symptoms have been present for 1 day and indicates a pain score of 0/10. MEDICAL/SURGICAL HISTORY: . Chronic kidney disease stage V requiring chronic dialysis. None. COMPARISON: [facility], US VENOUS DOPPLER ARM BI, 11/25/2017. . MEASUREMENTS: RIGHT: CEPHALIC: Origin:__2 mm Mid-Arm:__3 mm Elbow:__3 mm Forearm:__2 mm Wrist:__2 mm BASILIC: Origin:__4 mm Mid-Arm:__4 mm Elbow:__4 mm ARTERIES: Brachial:__5 mm Ulnar:__2 mm Radial:__2 mm VEINS: Radial:__1 mm Ulnar:__1 mm LEFT: CEPHALIC: Origin:__2 mm Mid-Arm:__2 mm Elbow:__2 mm Forearm:__1 mm Wrist:__1 mm BASILIC: Origin:__1 mm Mid-Arm:__1 mm Elbow:__2 mm ARTERIES: Brachial:__5 mm Ulnar:__2 mm Radial:__2 mm VEINS: Radial:__1 mm Ulnar:__1 mm FINDINGS: The venous system of the upper extremities are patent by color Doppler imaging. Measurements of the arm veins (in mm) are listed above. CONCLUSION: Bilateral upper extremity venous mapping as above. Electronically signed by: David Mattson MD 11/25/2017 10:48 AM EDT
--- NOTE | 2017-11-25 10:52 | US ---
EXAM DATE: 11/25/2017 12:00 AM EDT AGE/SEX: 27 years / Male INDICATIONS: Dialysis access. CLINICAL DATA: This is the patient's initial encounter. Patient reports that signs and symptoms have been present for 1 day and indicates a pain score of 0/10. MEDICAL/SURGICAL HISTORY: Hypertension. Chronic kidney disease stage V requiring chronic dialys is None. COMPARISON: No prior exams available for comparison. FINDINGS: Right Upper Extremity: The vessels are compressible and augmentation response is documented. No fill ing defects are seen. The flow is phasic with respiration. Left Upper Extremity: The vessels are compressible and augmentation response is documented. No filli ng defects are seen. The flow is phasic with respiration. Other: None. CONCLUSION: 1. The study is negative for bilateral upper extremity deep venous thrombosis. Electronically signed by: Michael Hayward MD 11/25/2017 10:50 AM EDT
[2017-11-25] MEDS ORDERED: Vancomycin Inj 1,000 MG in Sodium Chlor 0.9% Inj 250 ML IV.SIG ONE (11:00)
[2017-11-25 12:35] LABS: Hemoglobin A1c 5.3 % (4.3-6.0)
[2017-11-25] MEDS: amLODIPine 5 MG Tablet PO SCH (14:39)
[2017-11-25] MEDS ORDERED: diphenhydrAMINE HCl 12.5 MG/5 ML Elixir UDC PO ONE (15:00)
[2017-11-25] MEDS ORDERED: Sodium Chloride 0.9% 2 ML Flush PRN IV.FLUSH (15:05)
[2017-11-26 08:18] LABS: Baso # (Auto) 0.1 th/mm3 (0.0-0.2); Baso % (Auto) 2.3 % (0.0-2.0); Eos # (Auto) 0.4 th/mm3 (0.0-0.4); Eos % (Auto) 6.8 % (0.0-4.0); Hemoglobin 7.6 gm/dL (13.0-17.0); Lymph # (Auto) 1.1 th/mm3 (1.0-4.8); Lymph % (Auto) 20.6 % (9.0-44.0); Mean Platelet Volume 7.5 fL (7.0-11.0); Mono # (Auto) 0.9 th/mm3 (0.0-0.9); Mono % (Auto) 16.1 % (0.0-8.0); Neut # (Auto) 2.9 th/mm3 (1.8-7.7); Neut % (Auto) 54.2 % (16.0-70.0); Platelet Count 168 th/mm3 (150-450); Red Blood Count 2.22 mil/mm3 (4.50-5.90); Red Cell Distribution Width 12.9 % (11.6-17.2); White Blood Count 5.3 th/mm3 (4.0-11.0)
[2017-11-26 08:36] LABS: Alanine Aminotransferase 14 U/L (12-78); Albumin 3.3 g/dL (3.4-5.0); Anion Gap 12 meq/L (5-15); Aspartate Aminotransferase 3 U/L (15-37); Blood Urea Nitrogen 67 mg/dL (7-18); Calcium 8.8 mg/dL (8.5-10.1); Carbon Dioxide 27.3 meq/L (21.0-32.0); Chloride 102 meq/L (98-107); Glomerular Filtration Rate 5 mL/min (>89); Glucose,Random 98 mg/dL (74-106); Potassium 5.1 meq/L (3.5-5.1); Sodium 141 meq/L (136-145)
[2017-11-26 08:38] LABS: Alkaline Phosphatase 50 U/L (45-117); Total Protein 7.5 g/dL (6.4-8.2)
[2017-11-26] MEDS: Calcium Acetate 667 MG Capsule PO SCH ×2 (08:42→17:10)
[2017-11-26] MEDS: Calcitriol 0.25 MCG Capsule PO SCH (08:42)
[2017-11-26 09:11] LABS: Hematocrit 20.4 % (39.0-51.0)
--- NOTE | 2017-11-26 10:46 | P.PNFP ---
Subjective Interval history: Patient resting in bed comfortably, no significant complaints except for mild cough that is nonpainful. <DuaneJatin - 11/26/17 11:19> Pt has no complaints this morning, still coughing. Has no questions about procedures today or plan. Denies Fever/chills/ N/V/ abdominal pain. <Tiffani Bryson V - 11/26/17 10:46> Results - Labs Result diagrams: 11/26/17 07:48 11/26/17 07:48 <Jatin Zepeda - 11/26/17 11:19> Abnormal lab results 11/25/17 11/26/17 11/26/17 Range/Units 10:29 07:48 07:48 RBC 2.22 L (4.50-5.90) mil/mm3 Hgb 7.6 L (13.0-17.0) gm/dL Hct 20.4 L* (39.0-51.0) % MCHC 37.0 H (32.0-36.0) % [place] % (Auto) 16.1 H (0.0-8.0) % Eos % (Auto) 6.8 H (0.0-4.0) % Baso % (Auto) 2.3 H (0.0-2.0) % BUN 67 H (7-18) mg/dL Creatinine 11.88 H* D (0.60-1.30) mg/dL Estimated GFR 5 L (>89) mL/min AST 3 L (15-37) U/L Albumin 3.3 L (3.4-5.0) g/dL Ur Total Protein 24 Hr 1806 H (0-150) mg/24hr Short CBC 11/26/17 Range/Units 07:48 WBC 5.3 (4.0-11.0) th/mm3 Hgb 7.6 L (13.0-17.0) gm/dL Hct 20.4 L* (39.0-51.0) % Plt Count 168 (150-450) th/mm3 BMP 11/26/17 07:48 Sodium 141 Potassium 5.1 Chloride 102 Carbon Dioxide 27.3 BUN 67 H Creatinine 11.88 H* D Calcium 8.8 Liver Function 11/26/17 Range/Units 07:48 Total Bilirubin 0.3 (0.2-1.0) mg/dL AST 3 L (15-37) U/L ALT 14 (12-78) U/L Alkaline Phosphatase 50 (45-117) U/L Albumin 3.3 L (3.4-5.0) g/dL <Jatin Zepeda - 11/26/17 11:19> Abnormal lab results 11/26/17 11/26/17 Range/Units 07:48 07:48 RBC 2.22 L (4.50-5.90) mil/mm3 Hgb 7.6 L (13.0-17.0) gm/dL Hct 20.4 L* (39.0-51.0) % MCHC 37.0 H (32.0-36.0) % [place] % (Auto) 16.1 H (0.0-8.0) % Eos % (Auto) 6.8 H (0.0-4.0) % Baso % (Auto) 2.3 H (0.0-2.0) % BUN 67 H (7-18) mg/dL Creatinine 11.88 H* D (0.60-1.30) mg/dL Estimated GFR 5 L (>89) mL/min AST 3 L (15-37) U/L Albumin 3.3 L (3.4-5.0) g/dL Short CBC 11/26/17 Range/Units 07:48 WBC 5.3 (4.0-11.0) th/mm3 Hgb 7.6 L (13.0-17.0) gm/dL Hct 20.4 L* (39.0-51.0) % Plt Count 168 (150-450) th/mm3 BMP 11/26/17 07:48 Sodium 141 Potassium 5.1 Chloride 102 Carbon Dioxide 27.3 BUN 67 H Creatinine 11.88 H* D Calcium 8.8 Liver Function 11/26/17 Range/Units 07:48 Total Bilirubin 0.3 (0.2-1.0) mg/dL AST 3 L (15-37) U/L ALT 14 (12-78) U/L Alkaline Phosphatase 50 (45-117) U/L Albumin 3.3 L (3.4-5.0) g/dL <Tiffani Bryson V - 11/26/17 10:46> - Imaging Impressions Upper Extremity Ultrasound 11/25/17 00:00 CONCLUSION: Bilateral upper extremity venous mapping as above. Venous Doppler Study 11/25/17 00:00 CONCLUSION: 1. The study is negative for bilateral upper extremity deep venous thrombosis. <Tiffani Bryson V - 11/26/17 10:46> Physical Exam Vital signs: Vital Signs 11/25/17 12:00 11/25/17 15:43 11/25/17 19:00 Temperature 98.8 F 99.4 F Pulse Rate 91 H 86 92 H Respiratory Rate 18 18 Blood Pressure 134/70 165/99 H Pulse Oximetry 91 L 99 11/25/17 20:00 11/26/17 00:00 11/26/17 04:00 Temperature 99.1 F 98.5 F 98.6 F Pulse Rate 95 H 70 87 Respiratory Rate 15 15 15 Blood Pressure 121/74 134/50 L 136/82 Pulse Oximetry 100 100 11/26/17 08:00 Temperature 98.4 F Pulse Rate 65 Respiratory Rate 14 Blood Pressure 130/75 Pulse Oximetry 99 Intake & Output 11/25/17 11/26/17 11/26/17 18:59 06:59 18:59 Intake Total 1090 / 1090 250 / 250 Balance 1090 / 1090 250 / 250 Weight 79 kg Intake: IV 250 / 250 Vancomycin Inj 1,000 MG In NS 150 / 150 Inj 250 ML @ 250 mls/hr IV.SIG ONCE ONE Rx#:[id number] Tazicef Inj 1,000 MG In NS Inj 100 / 100 100 ML @ 200 mls/hr IV.SIG ONCE ONE Rx#:[id number] Oral 840 / 840 250 / 250 Other: # Voids 2 1 Date of Last Bowel Movement 11/24/17 # Bowel Movements 1 <Jatin Zepeda - 11/26/17 11:19> Vital Signs 11/25/17 12:00 11/25/17 15:43 11/25/17 19:00 Temperature 98.8 F 99.4 F Pulse Rate 91 H 86 92 H Respiratory Rate 18 18 Blood Pressure 134/70 165/99 H Pulse Oximetry 91 L 99 11/25/17 20:00 11/26/17 00:00 11/26/17 04:00 Temperature 99.1 F 98.5 F 98.6 F Pulse Rate 95 H 70 87 Respiratory Rate 15 15 15 Blood Pressure 121/74 134/50 L 136/82 Pulse Oximetry 100 100 11/26/17 08:00 Temperature 98.4 F Pulse Rate 65 Respiratory Rate 14 Blood Pressure 130/75 Pulse Oximetry 99 Intake & Output 11/25/17 11/26/17 11/26/17 18:59 06:59 18:59 Intake Total 1090 / 1090 250 / 250 Balance 1090 / 1090 250 / 250 Weight 79 kg Intake: IV 250 / 250 Vancomycin Inj 1,000 MG In NS 150 / 150 Inj 250 ML @ 250 mls/hr IV.SIG ONCE ONE Rx#:[id number] Tazicef Inj 1,000 MG In NS Inj 100 / 100 100 ML @ 200 mls/hr IV.SIG ONCE ONE Rx#:[id number] Oral 840 / 840 250 / 250 Other: # Voids 2 1 Date of Last Bowel Movement 11/24/17 # Bowel Movements 1 <Tiffani Bryson V - 11/26/17 10:46> Narrative: GENERAL: Well-nourished, well-developed patient. in NAD, laying comfortably in bed SKIN: Warm and dry. Port in R chest w/ no signs of infection. Pale appearance. CARDIOVASCULAR: Regular rate and rhythm without murmurs, gallops, or rubs. RESPIRATORY: Breath sounds equal bilaterally. No accessory muscle use. Coughing during exam. ABDOMEN/GI: Abdomen soft, non-tender, bowel sounds present, no guarding. EXTREMITIES: No cyanosis or edema. NEUROLOGICAL: Awake and alert. Motor and sensory grossly within normal limits. Normal speech. <Tiffani Bryson V - 11/26/17 10:46> Assessment and Plan - Assessment (1) CKD (chronic kidney disease) stage V requiring chronic dialysis Code(s): N18.6 - End stage renal disease; Z99.2 - Dependence on renal dialysis Status: Chronic (2) Hypertension Code(s): I10 - Essential (primary) hypertension Status: Acute (3) Nutrition, metabolism, and development symptoms Code(s): R63.8 - Other symptoms and signs concerning food and fluid intake Status: Acute (4) DVT prophylaxis Status: Acute <Jatin Zepeda - 11/26/17 11:19> (1) CKD (chronic kidney disease) stage V requiring chronic dialysis Code(s): N18.6 - End stage renal disease; Z99.2 - Dependence on renal dialysis Status: Chronic (2) Hypertension Code(s): I10 - Essential (primary) hypertension Status: Acute (3) Nutrition, metabolism, and development symptoms Code(s): R63.8 - Other symptoms and signs concerning food and fluid intake Status: Acute (4) DVT prophylaxis Status: Acute <Tiffani Bryson V - 11/26/17 10:35> - Assessment and Plan Plan: Chronic Kidney Disease of unknown etiology Dialysis MWF AV fistula by Vascular surgery today Hypertension Amlodipine 5mg po daily Clonidine 0.1mg PO PRN for Systolic >180 or Diastolic >110 Hydralazine 25mg PO PRN as well Hyperparathyroidism of renal origin Continue Calcitriol 0.25mcg qday Hyperphosphatemia Continue PhosLo w/ meals Anemia of renal disease Will start EPO w/ HD FEN & DVT prophylaxis Renal diet, PO intake. SCDs bilateral Disposition: CM on board. Terry is working to obtain pt's information about length of stay in the which will determine his ability to qualify for Medicaid. At this point, this process will take several days, likely including the weekend. Pt will remain inpatient. Hospital Course: 27 yr old male with recent discovered hypertension (within the last 6 months), recently diagnosed with Chronic Kidney Disease stage V while in [place]. Pt seen in [place] and started on dialysis. Some workup was done but he does not know what the etiology of kidney disease is. pt's creatinine on admission is 12.88 w/ BUN of 94. Pt is being managed by nephrology with plans for dialysis MWF. Pt's cause of kidney failure is still unknown, his elevated BP is likely a contributing factor. Kidney US showed small and atrophic kidneys with increased echogenicity characteristic of medical renal disease. Pt will need follow up with a PCP, as well as Nephrology outpatient. CM consulted and working on outpatient dialysis. Pt discussed with Dr. Zepeda, and Dr. Bridges <All Sims,Debi - 11/26/17 10:46> - Attending Attestation Patient examined independently from resident physicians and medical student I have read the above documentation and agree with the assessment/plan as discussed with me I was involved in all medical decision making for this patient Jatin Zepeda MD <Jatin Zepeda - 11/26/17 11:19>
[2017-11-26] MEDS ORDERED: ceFAZolin 2 GM Premix Inj 2 GM/50 ML PIGGYBACK IV.SIG SCH (11:00)
[2017-11-26] MEDS: Heparin 10,000 UNITS/10 ML Vial (for IV use) OTHER PRN (11:30)
[2017-11-26] MEDS: Epoetin Alfa Inj 4,000 UNIT/ML Vial IV.PUSH SCH (11:30)
[2017-11-26] MEDS ORDERED: ceFAZolin 2 GM Premix Inj 2 GM/50 ML PIGGYBACK IV.SIG ONE (12:01)
[2017-11-26] MEDS ORDERED: Bupivacaine PF 0.5% Inj 10 ML Vial ONE ×2 (12:01→12:02)
[2017-11-26] MEDS ORDERED: Heparin 10,000 UNITS/10 ML Vial (for IV use) ONE (12:01)
[2017-11-26] MEDS ORDERED: Protamine Sulfate Inj 50 MG/5 ML Vial ONE (12:02)
[2017-11-26] MEDS ORDERED: Heparin/NS PF Inj 500 ML ONE (12:08)
[2017-11-26] MEDS ORDERED: Bupivacaine/Epinephrine 0.5% Inj 50 ML Vial ONE (12:27)
[2017-11-26] MEDS ORDERED: Lidocaine PF 1% Inj 30 ML Vial ONE (12:28)
[2017-11-26] MEDS ORDERED: Sodium Chlor 0.9% Inj 500 ML IV.CONT ONE (13:38)
[2017-11-26] MEDS ORDERED: Sodium Chlor 0.9% Inj 500 ML ONE (13:56)
[2017-11-26] MEDS: Senna/Docusate Sodium 8.6/50 MG Tablet PO SCH ×2 (14:11→23:59)
[2017-11-26] MEDS: Sodium Chloride 0.9% 2 ML Flush BID IV.FLUSH SCH ×2 (14:11→23:59)
--- NOTE | 2017-11-26 14:38 | P.PNNP ---
Subjective Interval history: Attempted to see pt today but was in surgery for AVF s/p HD this AM without issues. BCx neg x48h. Iron stores low. Will order Venofer with HD along with Epogen. Will likely see again on Wednesday. Please call through the weekend if any questions. <Darlene Finnegan R - Last Filed: 11/26/17 14:34> Physical Exam Vital signs: Vital Signs 11/25/17 15:43 11/25/17 19:00 11/25/17 20:00 Temperature 99.4 F 99.1 F Pulse Rate 86 92 H 95 H Respiratory Rate 18 15 Blood Pressure 165/99 H 121/74 Pulse Oximetry 99 11/26/17 00:00 11/26/17 04:00 11/26/17 08:00 Temperature 98.5 F 98.6 F 98.4 F Pulse Rate 70 87 65 Respiratory Rate 15 15 14 Blood Pressure 134/50 L 136/82 130/75 Pulse Oximetry 100 100 99 11/26/17 09:00 Temperature Pulse Rate 65 Respiratory Rate Blood Pressure Pulse Oximetry Intake & Output 11/25/17 11/26/17 11/26/17 18:59 06:59 18:59 Intake Total 1090 / 1090 250 / 250 Output Total 700 / 700 Balance 1090 / 1090 250 / 250 -700 / -700 Weight 79 kg Intake: IV 250 / 250 Vancomycin Inj 1,000 MG In NS 150 / 150 Inj 250 ML @ 250 mls/hr IV.SIG ONCE ONE Rx#:[id number] Tazicef Inj 1,000 MG In NS Inj 100 / 100 100 ML @ 200 mls/hr IV.SIG ONCE ONE Rx#:[id number] Oral 840 / 840 250 / 250 Output: Hemodialysis Amount 700 / 700 Other: # Voids 2 1 Date of Last Bowel Movement 11/24/17 11/24/17 # Bowel Movements 1 <Darlene Finnegan R - Last Filed: 11/26/17 14:34> Vital signs: Vital Signs 11/26/17 15:36 11/26/17 15:45 11/26/17 16:00 Temperature 98.1 F Pulse Rate 68 79 75 Respiratory Rate 15 16 15 Blood Pressure 146/93 H 153/96 H 162/93 H Pulse Oximetry 100 99 99 11/26/17 16:15 11/26/17 16:30 11/26/17 16:40 Temperature 98.4 F Pulse Rate 75 76 75 Respiratory Rate 15 16 16 Blood Pressure 160/90 H 140/82 148/82 H Pulse Oximetry 99 99 100 11/26/17 17:14 11/26/17 20:00 11/27/17 00:00 Temperature 98.7 F 98.7 F 100.7 F H Pulse Rate 80 91 H 86 Respiratory Rate 19 17 18 Blood Pressure 142/88 H 123/64 118/71 Pulse Oximetry 98 100 100 11/27/17 04:00 11/27/17 06:35 11/27/17 08:00 Temperature 101.2 F H 98.4 F 99.5 F Pulse Rate 88 85 Respiratory Rate 18 19 Blood Pressure 126/69 116/66 Pulse Oximetry 98 98 11/27/17 12:00 Temperature 98.5 F Pulse Rate 88 Respiratory Rate 17 Blood Pressure 114/55 L Pulse Oximetry 100 Intake & Output 11/26/17 11/27/17 11/27/17 18:59 06:59 18:59 Intake Total 690 / 690 Output Total 710 / 710 Balance -20 / -20 Weight 80.5 kg Intake: IV 50 / 50 Ancef 2 GM Premix Inj 2 gm In 50 / 50 50 ml @ 100 mls/hr IV.SIG IT DATA [facility] Rx#:[id number] Oral 240 / 240 Anesthesia Amount 400 / 400 Output: Hemodialysis Amount 700 / 700 Estimated Blood Loss Other: # Voids 2 Date of Last Bowel Movement 11/24/17 <Bruce Whitney - Last Filed: 11/27/17 13:47> Assessment and Plan - Assessment (1) CKD (chronic kidney disease) stage V requiring chronic dialysis Code(s): N18.6 - End stage renal disease; Z99.2 - Dependence on renal dialysis Status: Chronic Plan: Patient presently has renal failure. Duration uncertain presently and etiology not entirely clear. Renal US reveals very atrophic kidneys measured at 7cm each with increased echogenicity indicative of chronic renal disease. Other work up at this point negative. Given his renal atrophy, it is doubtful that a renal biopsy would yield any reliable results and is not felt to be beneficial at this time as it would not change treatment course. As discussed with the patient and his family, it does appear that he is end- stage renal disease at this point in time and will require dialysis long-term. I am under the understanding that emergency Medicaid has been applied for, but will also have to have Medicare to be accepted at most (if not all) outpatient dialysis facilities; he was advised that this process can take upwards of 60-90 days. We do appreciate case management assistance in this regard. As he will likely not have an accepting outpatient dialysis facility until he has both Medicaid and Medicare, he will likely have to remain inpatient until this can be arranged. He does live in [place] and likely would not meet requirements for transitional dialysis program because of this. His family was inquiring about transplant, and I do feel that he is a good candidate to be worked up, but again the issues is a payor source. Will await finalization of screening labs to give us insight on underlying etiology, but unfortunately we not be able to provide this answer for the patient. We will consult vascular surgery to see if they would be agreeable for AVF placement while in hospital as he has a [facility] PermCath. The patient was provided educational handouts regarding long-term dialysis, access, and diet (in [place]) . Will tentatively keep the patient on MWF hemodialysis schedule with next HD . Medication should be adjusted for the patient's renal failure when indicated. Avoid gadolinium which is contraindicated. (2) Secondary hyperparathyroidism (of renal origin) Code(s): N25.81 - Secondary hyperparathyroidism of renal origin Status: Acute Plan: Continue Rocaltrol (3) Anemia of renal disease Code(s): D63.1 - Anemia in chronic kidney disease Status: Acute Plan: Venofer and Epogen with HD. (4) Hyperphosphatemia Code(s): E83.39 - Other disorders of phosphorus metabolism Status: Acute Plan: Continue with PhosLo (5) Fever Code(s): R50.9 - Fever, unspecified Status: Acute Plan: Resolved. BCx neg x48h. Apparently became itchy with Vanco. <Darlene Finnegan - Last Filed: 11/26/17 14:34> - Assessment (1) CKD (chronic kidney disease) stage V requiring chronic dialysis Code(s): N18.6 - End stage renal disease; Z99.2 - Dependence on renal dialysis Status: Chronic (2) Secondary hyperparathyroidism (of renal origin) Code(s): N25.81 - Secondary hyperparathyroidism of renal origin Status: Acute (3) Anemia of renal disease Code(s): D63.1 - Anemia in chronic kidney disease Status: Acute (4) Hyperphosphatemia Code(s): E83.39 - Other disorders of phosphorus metabolism Status: Acute (5) Fever Code(s): R50.9 - Fever, unspecified Status: Acute - Attending Attestation The exam, history, and the medical decision-making described in the above note were completed with the assistance of the PASusana. I reviewed and agree with the findings presented. I attest that I had a [id number] encounter with the patient and personally performed and documented my assessment and findings in the medical record. <Bruce Whitney - Last Filed: 11/27/17 13:47>
[2017-11-26] MEDS ORDERED: fentaNYL Citrate Inj 100 MCG/2 ML Ampul ONE (15:41)
--- NOTE | 2017-11-26 16:25 | P.OP ---
Preoperative Diagnosis: End-stage renal disease requiring hemodialysis Postoperative Diagnosis: Same Date of procedure: 11/26/17 Procedure: 1-Right brachiobasilic AV fistula creation(first stage) Anesthesia: MAC Surgeon: Rubin Dallas MD Estimated blood loss (mL): 10 Operation and Findings: Findings Right brachial artery measured approximately 4 mm diameter. The right basilic vein measured approximately 3 mm in diameter. Successful creation of a right brachial basilic AV fistula. There was a good thrill in the fistula at the end of the procedure. There is a palpable radial pulse at the end of the procedure. Procedure Patient was taken to the operating room placed supine on the OR table. I performed ultrasound of the bilateral upper extremity and identified the right basilic vein is the best suitable vein for the fistula creation. After adequate sedation the patient was prepped and draped in the standard sterile fashion. Timeout was called with her members and you are in agreement. An incision was made into the the right antecubital fossa dissection was taken down through the subcutaneous tissue using electrocautery. The basilic vein was dissected, branches were ligated. The brachial artery was also dissected and encircled with 2 Silastic loop. The median nerve identified and protected throughout the whole procedure. Patient was heparinized. The basilic vein was divided distally and clamped proximally. Possible distal control was obtained in the brachial artery and arteriotomy was created. The anastomosis fashion between the basilic vein and the brachial artery using a 6-0 Prolene suture in a running fashion. Hemostasis is achieved and the wound was closed in multiple layers using Vicryl suture followed by Monocryl suture that was placed in a running fashion. A Steri-Strip sterile dressing was applied. Patient tolerated procedure well and was taken to recovery unit in stable condition. Conclusion This is 30-year-old male with end-stage renal disease requiring hemodialysis. He underwent successful right brachial basilic AV fistula creation for stage. He will be evaluated with an office visit in 3 weeks to evaluate for maturation and plan second stage.
[2017-11-26] MEDS ORDERED: Morphine Sulfate Inj 2 MG/ML Vial ONE (16:28)
--- NOTE | 2017-11-27 03:09 | P.PNADD ---
Addendum to Inpatient Note Reason for Addendum: Additional Documentation (Off service note) Additional information: OFF SERVICE REPORT 27 yr old male with recent discovered hypertension (within the last 6 months), diagnosed with Chronic Kidney Disease stage V while in [place] two weeks ago. Pt seen in [place] and started on dialysis with via a perm cath. Minimal workup was done with still unknown etiology of kidney disease is. Pt's creatinine on admission is 12.88 w/ BUN of 94. He was admitted to our service for management and dialysis. Pt is being followed by nephrology with plans for dialysis MWF. Pt's cause of kidney failure is still unknown, his elevated BP is likely a contributing factor. Kidney US showed small and atrophic kidneys with increased echogenicity characteristic of medical renal disease. Got an AV fistula on 11/26 by vascular access for future use. Pt denies childhood history suggestive of nephritis. No family history of renal failure. Denies using NSAIDs for analgesia. Also denying a history of hepatitis. Workup includes: Negative hepatitis panel, negative ABISAI, anti-proteinase, anti- myeloperoxidase. Minimally low complement C3, minimally high complement C4. Elevated 24hr proteinuria (1806). Increased PTH secondary to kidney disease. Iron studies concordant with anemia due to kidney disease. High phosphate, also related to kidney disease. Vitamin D within normal limit. Pt being treated for Hypertension with 5mg Amlodipine qday, receiving EPO for anemia, Calcitriol 0.25mcg for hyperparathyroidism, and PhoLo for increased phosphate. Currently on a renal diet. Pt will need follow up with a PCP, as well as Nephrology outpatient. CM consulted and working to obtain pt's information about length of stay in the [place] which will determine his ability to qualify for Medicaid, and subsequently his ability to have outpatient dialysis.
[2017-11-27 06:12] LABS: Baso # (Auto) 0.1 th/mm3 (0.0-0.2); Baso % (Auto) 1.2 % (0.0-2.0); Eos # (Auto) 0.2 th/mm3 (0.0-0.4); Eos % (Auto) 2.4 % (0.0-4.0); Hemoglobin 7.4 gm/dL (13.0-17.0); Lymph # (Auto) 1.2 th/mm3 (1.0-4.8); Lymph % (Auto) 16.2 % (9.0-44.0); Mean Corpuscular HGB Conc 35.1 % (32.0-36.0); Mean Corpuscular Hemoglobin 32.7 pg (27.0-34.0); Mean Corpuscular Volume 93.2 fL (80.0-100.0); Mean Platelet Volume 7.7 fL (7.0-11.0); Mono # (Auto) 0.9 th/mm3 (0.0-0.9); Mono % (Auto) 11.9 % (0.0-8.0); Neut # (Auto) 5.1 th/mm3 (1.8-7.7); Neut % (Auto) 68.3 % (16.0-70.0); Platelet Count 179 th/mm3 (150-450); Red Blood Count 2.26 mil/mm3 (4.50-5.90); White Blood Count 7.5 th/mm3 (4.0-11.0)
[2017-11-27 06:32] LABS: Calcium 7.9 mg/dL (8.5-10.1); Carbon Dioxide 29.1 meq/L (21.0-32.0); Potassium 4.7 meq/L (3.5-5.1)
[2017-11-27] MEDS: Calcium Acetate 667 MG Capsule PO SCH ×4 (08:01→17:00)
[2017-11-27] MEDS: Senna/Docusate Sodium 8.6/50 MG Tablet PO SCH ×2 (08:02→21:00)
[2017-11-27] MEDS: amLODIPine 5 MG Tablet PO SCH ×2 (08:02)
[2017-11-27] MEDS: Calcitriol 0.25 MCG Capsule PO SCH (08:02)
[2017-11-27] MEDS: Sodium Chloride 0.9% 2 ML Flush BID IV.FLUSH SCH ×2 (08:03→21:00)
--- NOTE | 2017-11-27 08:54 | XR ---
EXAM DATE: 11/27/2017 12:00 AM EDT AGE/SEX: 27 years / Male INDICATIONS: . Cough. CLINICAL DATA: This is the patient's subsequent encounter. Patient reports that signs and symptoms h ave been present for 4 - 6 days and indicates a pain score of 3/10. MEDICAL/SURGICAL HISTORY: . Hypertension. Chronic kidney disease stage V requiring chronic dial ysis. None. COMPARISON: . FINDINGS: AP lateral views of the chest demonstrate stable right-sided dialysis catheter. Heart size is normal. Pulmonary vasculature is normal. Lungs are clear. Osseous structures are intact. CONCLUSION: Negative examination. Electronically signed by: She Moreau MD 11/27/2017 8:53 AM EDT
--- NOTE | 2017-11-27 10:32 | P.PNVS ---
Subjective Post Op Day #: 1 Procedure: Right upper extremity fistula creation Subjective/Hospital Course: Lying in bed, doing well. Complains of incisional wound controlled by pain meds. Objective Vital Signs / I&O: Vital Signs 11/26/17 15:36 11/26/17 15:45 11/26/17 16:00 Temperature 98.1 F Pulse Rate 68 79 75 Respiratory Rate 15 16 15 Blood Pressure 146/93 H 153/96 H 162/93 H Pulse Oximetry 100 99 99 11/26/17 16:15 11/26/17 16:30 11/26/17 16:40 Temperature 98.4 F Pulse Rate 75 76 75 Respiratory Rate 15 16 16 Blood Pressure 160/90 H 140/82 148/82 H Pulse Oximetry 99 99 100 11/26/17 17:14 11/26/17 20:00 11/27/17 00:00 Temperature 98.7 F 98.7 F 100.7 F H Pulse Rate 80 91 H 86 Respiratory Rate 19 17 18 Blood Pressure 142/88 H 123/64 118/71 Pulse Oximetry 98 100 100 11/27/17 04:00 11/27/17 06:35 11/27/17 08:00 Temperature 101.2 F H 98.4 F 99.5 F Pulse Rate 88 85 Respiratory Rate 18 19 Blood Pressure 126/69 116/66 Pulse Oximetry 98 98 Intake & Output 11/26/17 11/27/17 11/27/17 18:59 06:59 18:59 Intake Total 690 / 690 Output Total 710 / 710 Balance -20 / -20 Weight 80.5 kg Intake: IV 50 / 50 Ancef 2 GM Premix Inj 2 gm In 50 / 50 50 ml @ 100 mls/hr 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 Good thrill into the fistula. Palpable radial pulse. Laboratory Results - last 24 hr 11/25/17 11/27/17 11/27/17 10:29 05:15 05:15 WBC 7.5 RBC 2.26 L Hgb 7.4 L Hct 21.0 L MCV 93.2 MCH 32.7 MCHC 35.1 RDW 13.0 Plt Count 179 MPV 7.7 Neut % (Auto) 68.3 Lymph % (Auto) 16.2 [place] % (Auto) 11.9 H Eos % (Auto) 2.4 Baso % (Auto) 1.2 Neut # (Auto) 5.1 Lymph # (Auto) 1.2 [place] # (Auto) 0.9 Eos # (Auto) 0.2 Baso # (Auto) 0.1 WBC Differential . Differential Comment Auto diff final Sodium 141 Potassium 4.7 Chloride 102 Carbon Dioxide 29.1 Anion Gap 10 BUN 49 H Creatinine 8.91 H Estimated GFR 7 L Random Glucose 100 Calcium 7.9 L D Ur 24 Hour Volume 625 Ur Total Protein 24 Hr 1806 H Microbiology 11/24/17 20:50 Aerobic Blood Culture - Preliminary Blood - Peripheral No growth in 2 days Anaerobic Blood Culture - Preliminary No growth in 2 days 11/24/17 20:40 Aerobic Blood Culture - Preliminary Blood - Peripheral No growth in 2 days Anaerobic Blood Culture - Preliminary No growth in 2 days Assessment and Plan - Plan Status post right upper extremity AV fistula creation. Patient to follow-up in my office in 1 month for an evaluation of AV fistula and schedule for second stage procedure. I will give him prescription for narcotic pain medications prior to discharge. Stable for discharge from vascular standpoint.
--- NOTE | 2017-11-27 12:48 | P.PNFP ---
Subjective Interval history: Patient febrile up to 101.2F overnight. No other acute events. Vital signs otherwise within normal limits. Patient seen and examined this AM. Interview and examination was performed with an [place] to historic interpreter via [employer]. Patient endorsed subjective fevers overnight. Denied dyspnea, cough, chest pain. Denied dysuria, gross hematuria or pyuria. Denied any skin breakdown or noticing any rashes. Denied other sick symptoms. Patient's only concern this morning is of wanting two sutures to be removed. He stated he had these placed when he was in [place]. Denies pain, redness, or drainage from this site. Patient otherwise did not have specific complaints or concerns. <Pako Vasquez - 11/27/17 12:48> Results - Labs Result diagrams: 11/27/17 05:15 11/27/17 05:15 <Jatin Zepeda - 11/27/17 22:07> Abnormal lab results 11/27/17 11/27/17 11/27/17 Range/Units 05:15 05:15 16:00 RBC 2.26 L (4.50-5.90) mil/mm3 Hgb 7.4 L (13.0-17.0) gm/dL Hct 21.0 L (39.0-51.0) % [place] % (Auto) 11.9 H (0.0-8.0) % BUN 49 H (7-18) mg/dL Creatinine 8.91 H (0.60-1.30) mg/dL Estimated GFR 7 L (>89) mL/min Calcium 7.9 L D (8.5-10.1) mg/dL Urine Occult Blood Moderate H (Negative) Urine RBC 18 H (0-3) /hpf Urine Mucus (Occasional) /lpf 11/27/17 Range/Units 16:00 RBC (4.50-5.90) mil/mm3 Hgb (13.0-17.0) gm/dL Hct (39.0-51.0) % [place] % (Auto) (0.0-8.0) % BUN (7-18) mg/dL Creatinine (0.60-1.30) mg/dL Estimated GFR (>89) mL/min Calcium (8.5-10.1) mg/dL Urine Occult Blood Moderate H (Negative) Urine RBC 16 H (0-3) /hpf Urine Mucus Few H (Occasional) /lpf Short CBC 11/27/17 Range/Units 05:15 WBC 7.5 (4.0-11.0) th/mm3 Hgb 7.4 L (13.0-17.0) gm/dL Hct 21.0 L (39.0-51.0) % Plt Count 179 (150-450) th/mm3 BMP 11/27/17 05:15 Sodium 141 Potassium 4.7 Chloride 102 Carbon Dioxide 29.1 BUN 49 H Creatinine 8.91 H Calcium 7.9 L D Urine 11/27/17 11/27/17 Range/Units 16:00 16:00 Urine Color Yellow Yellow (Yellw/Straw) Urine Clarity Clear Clear (Clear) Urine pH 7.0 7.0 (5.0-8.5) Ur Specific [place] 1.010 1.010 (1.002-1.035) Urine Protein 500 or greater 500 or greater (Neg-Trace) mg/dL Urine Glucose (UA) Negative 50 (Negative) mg/dL <Jatin Zepeda - 11/27/17 22:07> Abnormal lab results 11/27/17 11/27/17 Range/Units 05:15 05:15 RBC 2.26 L (4.50-5.90) mil/mm3 Hgb 7.4 L (13.0-17.0) gm/dL Hct 21.0 L (39.0-51.0) % [place] % (Auto) 11.9 H (0.0-8.0) % BUN 49 H (7-18) mg/dL Creatinine 8.91 H (0.60-1.30) mg/dL Estimated GFR 7 L (>89) mL/min Calcium 7.9 L D (8.5-10.1) mg/dL Short CBC 11/27/17 Range/Units 05:15 WBC 7.5 (4.0-11.0) th/mm3 Hgb 7.4 L (13.0-17.0) gm/dL Hct 21.0 L (39.0-51.0) % Plt Count 179 (150-450) th/mm3 BMP 11/27/17 05:15 Sodium 141 Potassium 4.7 Chloride 102 Carbon Dioxide 29.1 BUN 49 H Creatinine 8.91 H Calcium 7.9 L D <Pako Vasquez - 11/27/17 12:48> - Imaging Impressions Chest X-Ray 11/27/17 00:00 CONCLUSION: Negative examination. <Jatin Zepeda - 11/27/17 22:07> Impressions Chest X-Ray 11/27/17 00:00 CONCLUSION: Negative examination. <Pako Vasquez - 11/27/17 12:48> Physical Exam Vital signs: Vital Signs 11/27/17 00:00 11/27/17 04:00 11/27/17 06:35 Temperature 100.7 F H 101.2 F H 98.4 F Pulse Rate 86 88 Respiratory Rate 18 18 Blood Pressure 118/71 126/69 Pulse Oximetry 100 98 11/27/17 08:00 11/27/17 12:00 11/27/17 16:00 Temperature 99.5 F 98.5 F 98.1 F Pulse Rate 85 88 90 Respiratory Rate 19 17 18 Blood Pressure 116/66 114/55 L 129/76 Pulse Oximetry 98 100 100 11/27/17 20:13 Temperature 98.8 F Pulse Rate 92 H Respiratory Rate 18 Blood Pressure 139/69 Pulse Oximetry 99 Intake & Output 11/27/17 11/27/17 11/28/17 06:59 18:59 06:59 Intake Total 560 / 560 Balance 560 / 560 Weight 80.5 kg Intake: Oral 560 / 560 Other: # Voids 2 3 # Bowel Movements 0 <Jatin Zepeda - 11/27/17 22:07> Vital Signs 11/26/17 15:36 11/26/17 15:45 11/26/17 16:00 Temperature 98.1 F Pulse Rate 68 79 75 Respiratory Rate 15 16 15 Blood Pressure 146/93 H 153/96 H 162/93 H Pulse Oximetry 100 99 99 11/26/17 16:15 11/26/17 16:30 11/26/17 16:40 Temperature 98.4 F Pulse Rate 75 76 75 Respiratory Rate 15 16 16 Blood Pressure 160/90 H 140/82 148/82 H Pulse Oximetry 99 99 100 11/26/17 17:14 11/26/17 20:00 11/27/17 00:00 Temperature 98.7 F 98.7 F 100.7 F H Pulse Rate 80 91 H 86 Respiratory Rate 19 17 18 Blood Pressure 142/88 H 123/64 118/71 Pulse Oximetry 98 100 100 11/27/17 04:00 11/27/17 06:35 11/27/17 08:00 Temperature 101.2 F H 98.4 F 99.5 F Pulse Rate 88 85 Respiratory Rate 18 19 Blood Pressure 126/69 116/66 Pulse Oximetry 98 98 Intake & Output 11/26/17 11/27/17 11/27/17 18:59 06:59 18:59 Intake Total 690 / 690 Output Total 710 / 710 Balance -20 / -20 Weight 80.5 kg Intake: IV 50 / 50 Ancef 2 GM Premix Inj 2 gm In 50 / 50 50 ml @ 100 mls/hr IV.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 Pleasant. In NAD, lying comfortably in bed SKIN: Warm and dry. Port in R chest w/ no signs of infection. CARDIOVASCULAR: Regular rate and rhythm without murmurs, gallops, or rubs. RESPIRATORY: Breath sounds equal and clear bilaterally. No accessory muscle use. ABDOMEN/GI: Abdomen soft, non-tender, bowel sounds present, no guarding. EXTREMITIES: No cyanosis or edema. NEUROLOGICAL: Awake and alert. Motor and sensory grossly within normal limits. Normal speech. <Pako Vasquez - 11/27/17 12:48> Assessment and Plan - Assessment (1) CKD (chronic kidney disease) stage V requiring chronic dialysis Code(s): N18.6 - End stage renal disease; Z99.2 - Dependence on renal dialysis Status: Chronic (2) Hypertension Code(s): I10 - Essential (primary) hypertension Status: Acute (3) Nutrition, metabolism, and development symptoms Code(s): R63.8 - Other symptoms and signs concerning food and fluid intake Status: Acute (4) DVT prophylaxis Status: Acute (5) Fever Code(s): R50.9 - Fever, unspecified Status: Acute <Jatin Zepeda - 11/27/17 22:07> (1) CKD (chronic kidney disease) stage V requiring chronic dialysis Code(s): N18.6 - End stage renal disease; Z99.2 - Dependence on renal dialysis Status: Chronic (2) Hypertension Code(s): I10 - Essential (primary) hypertension Status: Acute (3) Nutrition, metabolism, and development symptoms Code(s): R63.8 - Other symptoms and signs concerning food and fluid intake Status: Acute (4) DVT prophylaxis Status: Acute (5) Fever Code(s): R50.9 - Fever, unspecified Status: Acute <Pako Vasquez - 11/27/17 12:48> - Assessment and Plan Plan: End-stage renal disease of unknown etiology Nephrology continuing Dialysis MWF s/p right upper extremity AV fistula creation on 11/26/2017 Renal ultrasound showing atrophic kidneys measured at 7cm each with increased echogenicity indicative of chronic renal disease Nephrology deferring renal biopsy at this time Fever Febrile up to 101.2 overnight CXR AP and lateral today 11/27 is negative UA ordered Blood cultures repeated. Initial blood cultures from 11/24 are no growth to date No signs of infection with any peripheral lines Uncertain etiology of fever at this time, will continue to monitor vitals closely. Clinically he appears well, vitals are otherwise unremarkable, no leukocytosis Hypertension Amlodipine 5mg po daily Clonidine 0.1mg PO PRN for Systolic >180 or Diastolic >110 Hydralazine 25mg PO PRN as well Hyperparathyroidism of renal origin Continue Calcitriol 0.25mcg qday Hyperphosphatemia Continue PhosLo w/ meals Anemia of renal disease Will start EPO w/ HD Nephrology ordering Venofer with HD in addition to Epogen FEN & DVT prophylaxis Renal diet, PO intake. SCDs bilateral Disposition: CM on board. Terry is working to obtain pt's information about length of stay in the which will determine his ability to qualify for Medicaid. At this point, this process will take several days, likely including the weekend. Pt will remain inpatient. Hospital Course: 27 yr old male with recent discovered hypertension (within the last 6 months), recently diagnosed with chronic kidney disease while in [place] which now appears to be end-stage renal disease. Pt seen in [place] and started on dialysis. Some workup was done but he does not know what the etiology of kidney disease is. Pt is being managed by nephrology with plans for dialysis MWF. Pt's cause of kidney failure is still unknown, his elevated BP is likely a contributing factor. Kidney US showed small and atrophic kidneys with increased echogenicity characteristic of medical renal disease. Pt will need follow up with a PCP, as well as Nephrology outpatient. CM consulted and working on arranging outpatient dialysis. Pt discussed with Dr. Zepeda and Dr. Bridges <Pako Vasquez - 11/27/17 12:51> - Attending Attestation Pt. examined and case discussed with resident physicians. I have read the above note and agree with the assessment and plan as discussed with me. I was involved in all medical decision making for this patient. Jatin Zepeda MD <Jatin Zepeda - 11/27/17 22:07>
[2017-11-27 16:59] LABS: Bilirubin,Urine Negative (Negative); Clarity,Urine Clear (Clear); Color,Urine Yellow (Yellw/Straw); Glucose,Urine (UA) 50 mg/dL (Negative); Glucose,Urine (UA) Negative (Negative); Hyaline Casts,Urine 1 /lpf (0-3); Leukocyte Esterase,Urine Negative (Negative); Mucus,Urine Few /lpf (Occasional); Nitrite,Urine Negative (Negative); Squamous Epithelial Cell,Urine <1 /hpf (0-5)
[2017-11-28 06:15] LABS: Calcium 8.2 mg/dL (8.5-10.1); Carbon Dioxide 26.5 meq/L (21.0-32.0)
[2017-11-28 06:49] LABS: Mean Corpuscular HGB Conc 34.5 % (32.0-36.0); Mean Corpuscular Hemoglobin 32.6 pg (27.0-34.0); Mean Corpuscular Volume 94.6 fL (80.0-100.0); Mean Platelet Volume 7.7 fL (7.0-11.0); Platelet Count 177 th/mm3 (150-450); Red Cell Distribution Width 12.9 % (11.6-17.2); White Blood Count 5.5 th/mm3 (4.0-11.0)
[2017-11-28 07:20] LABS: Hematocrit 20.8 % (39.0-51.0); Hemoglobin 7.2 gm/dL (13.0-17.0)
[2017-11-28] MEDS: amLODIPine 5 MG Tablet PO SCH (09:07)
[2017-11-28] MEDS: Senna/Docusate Sodium 8.6/50 MG Tablet PO SCH ×2 (09:07→21:01)
[2017-11-28] MEDS: Calcium Acetate 667 MG Capsule PO SCH ×3 (09:07→17:33)
[2017-11-28] MEDS: Calcitriol 0.25 MCG Capsule PO SCH (09:07)
[2017-11-28] MEDS: Sodium Chloride 0.9% 2 ML Flush BID IV.FLUSH SCH ×2 (09:08→21:00)
--- NOTE | 2017-11-28 09:19 | P.PNFP ---
Subjective Interval history: Patient was seen and evaluated this morning. No overnight events reported. He has a 3/10 right-frontal headache. He denies fever and chills. He denies chest pain, shortness of breath, nausea, vomiting and diarrhea. He has not had a bowel movement in two days, which he associates with not eating much. Patient continues to make urine; he denies burning with urination. All questions were answered. Of note, professional hospital medical assistant via [employer] was used during the encounter. <Niya Muller - 11/28/17 09:18> Results - Labs Result diagrams: 11/28/17 04:50 11/28/17 04:51 <Jatin Zepeda - 11/28/17 11:12> Abnormal lab results 11/27/17 11/27/17 11/28/17 Range/Units 16:00 16:00 04:50 RBC 2.20 L (4.50-5.90) mil/mm3 Hgb 7.2 L (13.0-17.0) gm/dL Hct 20.8 L* (39.0-51.0) % BUN (7-18) mg/dL Creatinine (0.60-1.30) mg/dL Estimated GFR (>89) mL/min Calcium (8.5-10.1) mg/dL Urine Occult Blood Moderate H Moderate H (Negative) Urine RBC 18 H 16 H (0-3) /hpf Urine Mucus Few H (Occasional) /lpf 11/28/17 Range/Units 04:51 RBC (4.50-5.90) mil/mm3 Hgb (13.0-17.0) gm/dL Hct (39.0-51.0) % BUN 65 H (7-18) mg/dL Creatinine 11.11 H* D (0.60-1.30) mg/dL Estimated GFR 6 L (>89) mL/min Calcium 8.2 L (8.5-10.1) mg/dL Urine Occult Blood (Negative) Urine RBC (0-3) /hpf Urine Mucus (Occasional) /lpf Short CBC 11/28/17 Range/Units 04:50 WBC 5.5 (4.0-11.0) th/mm3 Hgb 7.2 L (13.0-17.0) gm/dL Hct 20.8 L* (39.0-51.0) % Plt Count 177 (150-450) th/mm3 BMP 11/28/17 04:51 Sodium 140 Potassium 5.0 Chloride 103 Carbon Dioxide 26.5 BUN 65 H Creatinine 11.11 H* D Calcium 8.2 L Urine 11/27/17 11/27/17 Range/Units 16:00 16:00 Urine Color Yellow Yellow (Yellw/Straw) Urine Clarity Clear Clear (Clear) Urine pH 7.0 7.0 (5.0-8.5) Ur Specific [place] 1.010 1.010 (1.002-1.035) Urine Protein 500 or greater 500 or greater (Neg-Trace) mg/dL Urine Glucose (UA) Negative 50 (Negative) mg/dL <Jatin Zepead - 11/28/17 11:12> Abnormal lab results 11/27/17 11/27/17 11/28/17 Range/Units 16:00 16:00 04:50 RBC 2.20 L (4.50-5.90) mil/mm3 Hgb 7.2 L (13.0-17.0) gm/dL Hct 20.8 L* (39.0-51.0) % BUN (7-18) mg/dL Creatinine (0.60-1.30) mg/dL Estimated GFR (>89) mL/min Calcium (8.5-10.1) mg/dL Urine Occult Blood Moderate H Moderate H (Negative) Urine RBC 18 H 16 H (0-3) /hpf Urine Mucus Few H (Occasional) /lpf 11/28/17 Range/Units 04:51 RBC (4.50-5.90) mil/mm3 Hgb (13.0-17.0) gm/dL Hct (39.0-51.0) % BUN 65 H (7-18) mg/dL Creatinine 11.11 H* D (0.60-1.30) mg/dL Estimated GFR 6 L (>89) mL/min Calcium 8.2 L (8.5-10.1) mg/dL Urine Occult Blood (Negative) Urine RBC (0-3) /hpf Urine Mucus (Occasional) /lpf Short CBC 11/28/17 Range/Units 04:50 WBC 5.5 (4.0-11.0) th/mm3 Hgb 7.2 L (13.0-17.0) gm/dL Hct 20.8 L* (39.0-51.0) % Plt Count 177 (150-450) th/mm3 BMP 11/28/17 04:51 Sodium 140 Potassium 5.0 Chloride 103 Carbon Dioxide 26.5 BUN 65 H Creatinine 11.11 H* D Calcium 8.2 L Urine 11/27/17 11/27/17 Range/Units 16:00 16:00 Urine Color Yellow Yellow (Yellw/Straw) Urine Clarity Clear Clear (Clear) Urine pH 7.0 7.0 (5.0-8.5) Ur Specific [place] 1.010 1.010 (1.002-1.035) Urine Protein 500 or greater 500 or greater (Neg-Trace) mg/dL Urine Glucose (UA) Negative 50 (Negative) mg/dL <Niya Muller - 11/28/17 09:18> Physical Exam Vital signs: Vital Signs 11/27/17 12:00 11/27/17 16:00 11/27/17 20:00 Temperature 98.5 F 98.1 F Pulse Rate 88 90 87 Respiratory Rate 17 18 Blood Pressure 114/55 L 129/76 Pulse Oximetry 100 100 11/27/17 20:13 11/28/17 00:00 11/28/17 04:00 Temperature 98.8 F 98.4 F Pulse Rate 92 H 75 71 Respiratory Rate 18 17 Blood Pressure 139/69 134/74 Pulse Oximetry 99 98 11/28/17 04:28 11/28/17 08:00 Temperature 98.0 F 98.7 F Pulse Rate 65 78 Respiratory Rate 18 18 Blood Pressure 114/67 129/77 Pulse Oximetry 96 99 Intake & Output 11/27/17 11/28/17 11/28/17 18:59 06:59 18:59 Intake Total 560 / 560 480 / 480 Balance 560 / 560 480 / 480 Weight 80.5 kg Intake: Oral 560 / 560 480 / 480 Other: # Voids 3 2 # Bowel Movements 0 <Jatin Zepeda - 11/28/17 11:12> Vital Signs 11/27/17 12:00 11/27/17 16:00 11/27/17 20:00 Temperature 98.5 F 98.1 F Pulse Rate 88 90 87 Respiratory Rate 17 18 Blood Pressure 114/55 L 129/76 Pulse Oximetry 100 100 11/27/17 20:13 11/28/17 00:00 11/28/17 04:00 Temperature 98.8 F 98.4 F Pulse Rate 92 H 75 71 Respiratory Rate 18 17 Blood Pressure 139/69 134/74 Pulse Oximetry 99 98 11/28/17 04:28 11/28/17 08:00 Temperature 98.0 F 98.7 F Pulse Rate 65 78 Respiratory Rate 18 18 Blood Pressure 114/67 129/77 Pulse Oximetry 96 99 <Niya Muller - 11/28/17 09:18> Narrative: GENERAL: Well-nourished, well-developed patient. Pleasant. In NAD, lying comfortably in bed. SKIN: Warm and dry. Port in R chest w/ no signs of infection. CARDIOVASCULAR: Regular rate and rhythm without murmurs, gallops, or rubs. RESPIRATORY: Breath sounds equal and clear bilaterally. No accessory muscle use. ABDOMEN/GI: Abdomen soft, non-tender, bowel sounds present, no guarding. EXTREMITIES: No cyanosis or edema. NEUROLOGICAL: Awake and alert. Motor and sensory grossly within normal limits. Normal speech. <Soren Mullerstin - 11/28/17 09:18> Assessment and Plan - Assessment (1) CKD (chronic kidney disease) stage V requiring chronic dialysis Code(s): N18.6 - End stage renal disease; Z99.2 - Dependence on renal dialysis Status: Chronic (2) Hypertension Code(s): I10 - Essential (primary) hypertension Status: Chronic (3) Anemia of renal disease Code(s): D63.1 - Anemia in chronic kidney disease Status: Acute (4) Secondary hyperparathyroidism (of renal origin) Code(s): N25.81 - Secondary hyperparathyroidism of renal origin Status: Chronic (5) Hyperphosphatemia Code(s): E83.39 - Other disorders of phosphorus metabolism Status: Acute (6) Nutrition, metabolism, and development symptoms Code(s): R63.8 - Other symptoms and signs concerning food and fluid intake Status: Acute (7) DVT prophylaxis Status: Acute <Jatin Zepeda - 11/28/17 11:12> (1) CKD (chronic kidney disease) stage V requiring chronic dialysis Code(s): N18.6 - End stage renal disease; Z99.2 - Dependence on renal dialysis Status: Chronic Plan: Dialysis MWF. s/p right upper extremity AV fistula creation on 11/26/2017. Renal ultrasound showing atrophic kidneys measured at 7cm each with increased echogenicity indicative of chronic renal disease. Nephrology deferring renal biopsy at this time. (2) Hypertension Code(s): I10 - Essential (primary) hypertension Status: Chronic Plan: Well-controlled at this time. Amlodipine 5mg po daily. Clonidine 0.1mg PO PRN for Systolic >180 or Diastolic >110. (3) Anemia of renal disease Code(s): D63.1 - Anemia in chronic kidney disease Status: Acute Plan: Venofer and Epogen with dialysis. (4) Secondary hyperparathyroidism (of renal origin) Code(s): N25.81 - Secondary hyperparathyroidism of renal origin Status: Chronic Plan: Continue Calcitriol 0.25mcg qday. (5) Hyperphosphatemia Code(s): E83.39 - Other disorders of phosphorus metabolism Status: Acute Plan: Improving. Continue PhosLo w/ meals. (6) Nutrition, metabolism, and development symptoms Code(s): R63.8 - Other symptoms and signs concerning food and fluid intake Status: Acute Plan: Fluid: * Tolerating PO. Electrolytes: * Monitor and replete as necessary. Nutrition: * Renal diet. (7) DVT prophylaxis Status: Acute Plan: Encourage ambulation. SCDs bilaterally. <Niya Muller - 11/28/17 09:05> - Assessment and Plan Disposition: CM on board. Terry is working to obtain pt's information about length of stay in the which will determine his ability to qualify for Medicaid. At this point, this process will take several days, likely including the weekend. Patient will remain inpatient. Hospital Course: 27 year old male with recent discovered hypertension (within the last 6 months), recently diagnosed with chronic kidney disease while in [place] which now appears to be end-stage renal disease. Patient seen in [place] and started on dialysis. Some workup was done but he does not know what the etiology of kidney disease is. Patient is being managed by nephrology with plans for dialysis MWF. Patient's cause of kidney failure is still unknown, his elevated BP is likely a contributing factor. Kidney US showed small and atrophic kidneys with increased echogenicity characteristic of medical renal disease. Patient will need follow up with a PCP, as well as nephrology outpatient. <Niya Muller - 11/28/17 09:18> - Attending Attestation Patient case discussed with resident physicians I have independently examined the patient I have read the above note and agree with the assessment and plan as discussed with me I was involved in all medical decision making for this patient Jatin Zepeda MD <Jatin Zepeda - 11/28/17 11:12>
[2017-11-28] MEDS: Epoetin Alfa Inj 4,000 UNIT/ML Vial IV.PUSH SCH (11:39)
[2017-11-29 06:56] LABS: Baso # (Auto) 0.1 th/mm3 (0.0-0.2); Baso % (Auto) 2.1 % (0.0-2.0); Eos # (Auto) 0.3 th/mm3 (0.0-0.4); Eos % (Auto) 6.6 % (0.0-4.0); Hematocrit 21.1 % (39.0-51.0); Hemoglobin 7.4 gm/dL (13.0-17.0); Lymph % (Auto) 40.3 % (9.0-44.0); Mean Corpuscular HGB Conc 34.9 % (32.0-36.0); Mean Corpuscular Volume 94.6 fL (80.0-100.0); Mean Platelet Volume 7.6 fL (7.0-11.0); Mono # (Auto) 0.5 th/mm3 (0.0-0.9); Mono % (Auto) 10.8 % (0.0-8.0); Neut % (Auto) 40.2 % (16.0-70.0); Platelet Count 185 th/mm3 (150-450); Red Blood Count 2.23 mil/mm3 (4.50-5.90); White Blood Count 4.9 th/mm3 (4.0-11.0)
[2017-11-29 07:22] LABS: Albumin 3.3 g/dL (3.4-5.0); Calcium 8.3 mg/dL (8.5-10.1); Phosphorus 8.1 mg/dL (2.5-4.9)
--- NOTE | 2017-11-29 08:38 | P.PNFP ---
Subjective Interval history: No complaints, doing well today. Vitals stable. Dialysis today. Results - Labs Result diagrams: 11/29/17 06:11 11/29/17 06:11 Abnormal lab results 11/29/17 11/29/17 Range/Units 06:11 06:11 RBC 2.23 L (4.50-5.90) mil/mm3 Hgb 7.4 L (13.0-17.0) gm/dL Hct 21.1 L (39.0-51.0) % [place] % (Auto) 10.8 H (0.0-8.0) % Eos % (Auto) 6.6 H (0.0-4.0) % Baso % (Auto) 2.1 H (0.0-2.0) % BUN 77 H (7-18) mg/dL Creatinine 12.14 H* D (0.60-1.30) mg/dL Estimated GFR 5 L (>89) mL/min Calcium 8.3 L (8.5-10.1) mg/dL Phosphorus 8.1 H (2.5-4.9) mg/dL Albumin 3.3 L (3.4-5.0) g/dL Short CBC 11/29/17 Range/Units 06:11 WBC 4.9 (4.0-11.0) th/mm3 Hgb 7.4 L (13.0-17.0) gm/dL Hct 21.1 L (39.0-51.0) % Plt Count 185 (150-450) th/mm3 BMP 11/29/17 06:11 Sodium 141 Potassium 5.0 Chloride 103 Carbon Dioxide 26.0 BUN 77 H Creatinine 12.14 H* D Calcium 8.3 L Liver Function 11/29/17 Range/Units 06:11 Albumin 3.3 L (3.4-5.0) g/dL Physical Exam Vital signs: Vital Signs 11/28/17 12:00 11/28/17 12:19 11/28/17 16:00 Temperature 98.1 F 98.1 F Pulse Rate 70 93 H Respiratory Rate 18 18 Blood Pressure 133/74 128/77 Pulse Oximetry 98 98 100 11/28/17 20:00 11/29/17 00:00 11/29/17 04:49 Temperature 98.0 F 97.9 F 97.4 F L Pulse Rate 79 80 67 Respiratory Rate 20 18 18 Blood Pressure 135/75 131/69 128/70 Pulse Oximetry 96 99 98 Intake & Output 11/28/17 11/29/17 11/29/17 18:59 06:59 18:59 Intake Total 960 / 960 480 / 480 1000 / 1000 Balance 960 / 960 480 / 480 1000 / 1000 Weight 80.5 kg Intake: IV 1000 / 1000 Oral 960 / 960 480 / 480 Other: # Voids 3 1 # Bowel Movements 1 Narrative: GENERAL: Well-nourished, well-developed patient. Pleasant. In NAD, lying comfortably in bed. SKIN: Warm and dry. Port in R chest w/ no signs of infection. CARDIOVASCULAR: Regular rate and rhythm without murmurs, gallops, or rubs. RESPIRATORY: Breath sounds equal and clear bilaterally. No accessory muscle use. ABDOMEN/GI: Abdomen soft, non-tender, bowel sounds present, no guarding. EXTREMITIES: No cyanosis or edema. Site of AVF procedure on left arm clean, dry , and intact suturing. NEUROLOGICAL: Awake and alert. Motor and sensory grossly within normal limits. Normal speech. Assessment and Plan - Assessment (1) CKD (chronic kidney disease) stage V requiring chronic dialysis Code(s): N18.6 - End stage renal disease; Z99.2 - Dependence on renal dialysis Status: Chronic Plan: Dialysis MWF via [facility] Perm Cath. s/p right upper extremity AV fistula creation on 11/26/2017. Renal ultrasound showing atrophic kidneys measured at 7cm each with increased echogenicity indicative of chronic renal disease Treatment option limited by lack of payor source. Plan to work w/CM on potential solutions Nephrology consulted Vascular Surgery consulted for AVF placement while in the hospital (2) Anemia of renal disease Code(s): D63.1 - Anemia in chronic kidney disease Status: Acute Plan: Venofer and Epogen with dialysis. Monitor daily CBCs. (3) Hypertension Code(s): I10 - Essential (primary) hypertension Status: Chronic Plan: Well-controlled at this time. Amlodipine 5mg po daily. Clonidine 0.1mg PO PRN for Systolic >180 or Diastolic >110. (4) Secondary hyperparathyroidism (of renal origin) Code(s): N25.81 - Secondary hyperparathyroidism of renal origin Status: Chronic Plan: Continue Calcitriol 0.25mcg qday. (5) Hyperphosphatemia Code(s): E83.39 - Other disorders of phosphorus metabolism Status: Acute Plan: Continue PhosLo w/ meals. (6) Nutrition, metabolism, and development symptoms Code(s): R63.8 - Other symptoms and signs concerning food and fluid intake Status: Acute Plan: Fluid: * Tolerating PO. Electrolytes: * Monitor and replete as necessary. Nutrition: * Renal diet. (7) DVT prophylaxis Status: Acute Plan: Encourage ambulation. SCDs bilaterally. - Assessment and Plan Disposition: CM on board. Terry is working to obtain pt's information about length of stay in the [place] which will determine his ability to qualify for Medicaid. At this point, this process will take several days, likely including the weekend. Patient will remain inpatient. Hospital Course: 27 year old male with recent discovered hypertension (within the last 6 months), recently diagnosed with chronic kidney disease while in [place] which now appears to be end-stage renal disease. Patient seen in [place] and started on dialysis. Some workup was done but he does not know what the etiology of kidney disease is. Patient is being managed by nephrology with plans for dialysis MWF. Patient's cause of kidney failure is still unknown, his elevated BP is likely a contributing factor. Kidney US showed small and atrophic kidneys with increased echogenicity characteristic of medical renal disease. Receiving hemodialysis via Permcath MWF. [facility] consulted for AVF placement. W/CM assistance, Emergency Medicaid has been applied for, but will also have to have Medicare to be accepted at most outpatient dialysis facilities; this process can take 60-90 days. He will likely have to remain inpatient until this can be arranged. Doesn't meet requirements for transitional dialysis program due to residential location.
--- NOTE | 2017-11-29 11:52 | P.PNNP ---
Subjective Interval history: Patient was seen during his dialysis session. No verbal complaints. Physical Exam Vital signs: Vital Signs 11/28/17 12:00 11/28/17 12:19 11/28/17 16:00 Temperature 98.1 F 98.1 F Pulse Rate 70 93 H Respiratory Rate 18 18 Blood Pressure 133/74 128/77 Pulse Oximetry 98 98 100 11/28/17 20:00 11/29/17 00:00 11/29/17 04:49 Temperature 98.0 F 97.9 F 97.4 F L Pulse Rate 79 80 67 Respiratory Rate 20 18 18 Blood Pressure 135/75 131/69 128/70 Pulse Oximetry 96 99 98 11/29/17 08:15 Temperature Pulse Rate 73 Respiratory Rate Blood Pressure Pulse Oximetry Intake & Output 11/28/17 11/29/17 11/29/17 18:59 06:59 18:59 Intake Total 960 / 960 480 / 480 1000 / 1000 Balance 960 / 960 480 / 480 1000 / 1000 Weight 80.5 kg Intake: IV 1000 / 1000 Oral 960 / 960 480 / 480 Other: # Voids 3 1 # Bowel Movements 1 Narrative: GENERAL: Well-nourished, well-developed patient. Pleasant. In NAD, lying comfortably in bed. SKIN: Warm and dry. Port in R chest w/ no signs of infection. CARDIOVASCULAR: Regular rate and rhythm without murmurs, gallops, or rubs. RESPIRATORY: Breath sounds equal and clear bilaterally. No accessory muscle use. ABDOMEN/GI: Abdomen soft, non-tender, bowel sounds present, no guarding. EXTREMITIES: No cyanosis or edema. Site of AVF procedure on left arm clean, dry , and intact suturing. NEUROLOGICAL: Awake and alert. Assessment and Plan - Assessment (1) CKD (chronic kidney disease) stage V requiring chronic dialysis Code(s): N18.6 - End stage renal disease; Z99.2 - Dependence on renal dialysis Status: Chronic Plan: Patient presently has renal failure. Duration uncertain presently and etiology not entirely clear. Renal US reveals very atrophic kidneys measured at 7cm each with increased echogenicity indicative of chronic renal disease. Other work up at this point negative. Given his renal atrophy marked renal atrophy kidney biopsy will not show any reversible pathology at this point in time. Serological studies providing no insight into etiology of his end-stage renal disease. As discussed with the patient and his family, it does appear that he is end- stage renal disease at this point in time and will require dialysis long-term. I am under the understanding that emergency Medicaid has been applied for, but will also have to have Medicare to be accepted at most (if not all) outpatient dialysis facilities; he was advised that this process can take upwards of 60-90 days. We do appreciate case management assistance in this regard. As he will likely not have an accepting outpatient dialysis facility until he has both Medicaid and Medicare, he will likely have to remain inpatient until this can be arranged. He does live in [place] and likely would not meet requirements for transitional dialysis program because of this. His family was inquiring about transplant, and I do feel that he is a good candidate to be worked up, but again the issues is a payor source. Will tentatively keep the patient on MWF hemodialysis schedule with next HD . Medication should be adjusted for the patient's renal failure when indicated. Avoid gadolinium which is contraindicated. (2) Secondary hyperparathyroidism (of renal origin) Code(s): N25.81 - Secondary hyperparathyroidism of renal origin Status: Chronic Plan: Continue Rocaltrol (3) Anemia of renal disease Code(s): D63.1 - Anemia in chronic kidney disease Status: Acute Plan: Venofer and Epogen with HD. (4) Hyperphosphatemia Code(s): E83.39 - Other disorders of phosphorus metabolism Status: Acute Plan: Continue with PhosLo (5) Fever Code(s): R50.9 - Fever, unspecified Status: Acute Plan: Resolved. BCx neg x48h. Apparently became itchy with Vanco. - Plan Patient presently has renal failure. Duration uncertain presently and etiology not entirely clear. Renal US reveals very atrophic kidneys measured at 7cm each with increased echogenicity indicative of chronic renal disease. Other work up at this point negative. Given his renal atrophy, it is doubtful that a renal biopsy would yield any reliable results and is not felt to be beneficial at this time as it would not change treatment course. As discussed with the patient and his family, it does appear that he is end- stage renal disease at this point in time and will require dialysis long-term. I am under the understanding that emergency Medicaid has been applied for, but will also have to have Medicare to be accepted at most (if not all) outpatient dialysis facilities; he was advised that this process can take upwards of 60-90 days. We do appreciate case management assistance in this regard. As he will likely not have an accepting outpatient dialysis facility until he has both Medicaid and Medicare, he will likely have to remain inpatient until this can be arranged. He does live in [place] and likely would not meet requirements for transitional dialysis program because of this. His family was inquiring about transplant, and I do feel that he is a good candidate to be worked up, but again the issues is a payor source. Will await finalization of screening labs to give us insight on underlying etiology, but unfortunately we not be able to provide this answer for the patient. We will consult vascular surgery to see if they would be agreeable for AVF placement while in hospital as he has a [facility] PermCath. The patient was provided educational handouts regarding long-term dialysis, access, and diet (in Yoruba) . Will tentatively keep the patient on MWF hemodialysis schedule with next HD 02/01. Medication should be adjusted for the patient's renal failure when indicated. Avoid gadolinium which is contraindicated.
[2017-11-29] MEDS: Epoetin Alfa Inj 4,000 UNIT/ML Vial IV.PUSH SCH (12:17)
[2017-11-29] MEDS: amLODIPine 5 MG Tablet PO SCH (13:57)
[2017-11-29] MEDS: Calcitriol 0.25 MCG Capsule PO SCH (13:58)
[2017-11-29] MEDS: Sodium Chloride 0.9% 2 ML Flush BID IV.FLUSH SCH ×2 (13:58→20:43)
[2017-11-29] MEDS: Senna/Docusate Sodium 8.6/50 MG Tablet PO SCH ×2 (13:58→20:41)
[2017-11-29] MEDS: Calcium Acetate 667 MG Capsule PO SCH ×4 (13:59→17:22)
[2017-11-29] MEDS: Iron Sucrose Inj 100 MG/5 ML Vial IV.PUSH SCH (17:22)
[2017-11-30 07:58] LABS: Hematocrit 21.1 % (39.0-51.0); Hemoglobin 7.6 gm/dL (13.0-17.0)
[2017-11-30 08:34] LABS: Calcium 8.3 mg/dL (8.5-10.1); Carbon Dioxide 30.6 meq/L (21.0-32.0)
[2017-11-30] MEDS: Calcitriol 0.25 MCG Capsule PO SCH (08:39)
[2017-11-30] MEDS: amLODIPine 5 MG Tablet PO SCH (08:39)
[2017-11-30] MEDS: Calcium Acetate 667 MG Capsule PO SCH ×3 (08:39→17:54)
[2017-11-30] MEDS: Senna/Docusate Sodium 8.6/50 MG Tablet PO SCH ×2 (08:39→22:02)
[2017-11-30] MEDS: Sodium Chloride 0.9% 2 ML Flush BID IV.FLUSH SCH ×2 (08:40→22:03)
--- NOTE | 2017-11-30 08:44 | P.PNFP ---
Subjective Interval history: Doing well, no problems to report. <SharriPepeShirley N - 11/30/17 08:44> Results - Labs Result diagrams: 11/30/17 07:15 11/30/17 07:15 <Jatin Zepeda - 11/30/17 16:28> Abnormal lab results 11/30/17 11/30/17 Range/Units 07:15 07:15 Hgb 7.6 L (13.0-17.0) gm/dL Hct 21.1 L (39.0-51.0) % BUN 53 H (7-18) mg/dL Creatinine 9.05 H (0.60-1.30) mg/dL Estimated GFR 7 L (>89) mL/min Calcium 8.3 L (8.5-10.1) mg/dL Short CBC 11/30/17 Range/Units 07:15 Hgb 7.6 L (13.0-17.0) gm/dL Hct 21.1 L (39.0-51.0) % BMP 11/30/17 07:15 Sodium 140 Potassium 5.0 Chloride 99 Carbon Dioxide 30.6 BUN 53 H Creatinine 9.05 H Calcium 8.3 L <Jatin Zepeda - 11/30/17 16:28> Abnormal lab results 11/30/17 11/30/17 Range/Units 07:15 07:15 Hgb 7.6 L (13.0-17.0) gm/dL Hct 21.1 L (39.0-51.0) % BUN 53 H (7-18) mg/dL Creatinine 9.05 H (0.60-1.30) mg/dL Estimated GFR 7 L (>89) mL/min Calcium 8.3 L (8.5-10.1) mg/dL Short CBC 11/30/17 Range/Units 07:15 Hgb 7.6 L (13.0-17.0) gm/dL Hct 21.1 L (39.0-51.0) % BMP 11/30/17 07:15 Sodium 140 Potassium 5.0 Chloride 99 Carbon Dioxide 30.6 BUN 53 H Creatinine 9.05 H Calcium 8.3 L <Shirley Harrell N - 11/30/17 08:44> Physical Exam Vital signs: Vital Signs 11/29/17 20:00 11/29/17 20:03 11/30/17 00:00 Temperature 98.2 F 98 F Pulse Rate 79 78 72 Respiratory Rate 17 17 Blood Pressure 112/61 124/62 Pulse Oximetry 98 98 11/30/17 04:00 11/30/17 08:00 11/30/17 12:00 Temperature 97.9 F 97.8 F 97.7 F Pulse Rate 87 69 84 Respiratory Rate 17 19 18 Blood Pressure 111/55 L 118/62 115/69 Pulse Oximetry 99 98 100 11/30/17 16:00 Temperature 97.9 F Pulse Rate 72 Respiratory Rate 19 Blood Pressure 119/58 L Pulse Oximetry 100 Intake & Output 11/29/17 11/30/17 11/30/17 18:59 06:59 18:59 Intake Total 1740 / 1740 480 / 480 Output Total 1000 / 1000 Balance 740 / 740 480 / 480 Weight 80.5 kg Intake: IV 1000 / 1000 Oral 740 / 740 480 / 480 Output: Hemodialysis Amount 1000 / 1000 Other: # Voids 4 2 Date of Last Bowel Movement 11/28/17 <Jatin Zepeda - 11/30/17 16:28> Vital Signs 11/29/17 12:00 11/29/17 16:00 11/29/17 20:00 Temperature 98.5 F 98.1 F 98.2 F Pulse Rate 74 81 79 Respiratory Rate 18 19 17 Blood Pressure 126/84 123/60 112/61 Pulse Oximetry 99 100 98 11/29/17 20:03 11/30/17 00:00 11/30/17 04:00 Temperature 98 F 97.9 F Pulse Rate 78 72 87 Respiratory Rate 17 17 Blood Pressure 124/62 111/55 L Pulse Oximetry 98 99 11/30/17 08:00 Temperature 97.8 F Pulse Rate 70 Respiratory Rate 19 Blood Pressure 118/62 Pulse Oximetry 98 Intake & Output 11/29/17 11/30/17 11/30/17 18:59 06:59 18:59 Intake Total 1740 / 1740 480 / 480 Output Total 1000 / 1000 Balance 740 / 740 480 / 480 Weight 80.5 kg Intake: IV 1000 / 1000 Oral 740 / 740 480 / 480 Output: Hemodialysis Amount 1000 / 1000 Other: # Voids 4 2 Date of Last Bowel Movement 11/28/17 <Shirley Harrell - 11/30/17 08:44> Narrative: GENERAL: Well-nourished, well-developed patient. Pleasant. In NAD, lying comfortably in bed. SKIN: Warm and dry. CARDIOVASCULAR: Regular rate and rhythm without murmurs, gallops, or rubs. RESPIRATORY: Breath sounds equal and clear bilaterally. No accessory muscle use. EXTREMITIES: No cyanosis or edema. Site of AVF procedure on left arm clean, dry , and intact suturing. NEUROLOGICAL: Awake and alert. Motor and sensory grossly within normal limits. Normal speech. <SharriShirley N - 11/30/17 08:44> Assessment and Plan - Assessment (1) CKD (chronic kidney disease) stage V requiring chronic dialysis Code(s): N18.6 - End stage renal disease; Z99.2 - Dependence on renal dialysis Status: Chronic (2) Anemia of renal disease Code(s): D63.1 - Anemia in chronic kidney disease Status: Acute (3) Hypertension Code(s): I10 - Essential (primary) hypertension Status: Chronic (4) Secondary hyperparathyroidism (of renal origin) Code(s): N25.81 - Secondary hyperparathyroidism of renal origin Status: Chronic (5) Hyperphosphatemia Code(s): E83.39 - Other disorders of phosphorus metabolism Status: Acute (6) Nutrition, metabolism, and development symptoms Code(s): R63.8 - Other symptoms and signs concerning food and fluid intake Status: Acute (7) DVT prophylaxis Status: Acute <Jatin Zepeda - 11/30/17 16:28> (1) CKD (chronic kidney disease) stage V requiring chronic dialysis Code(s): N18.6 - End stage renal disease; Z99.2 - Dependence on renal dialysis Status: Chronic Plan: Dialysis MWF via [facility] Perm Cath. s/p right upper extremity AV fistula creation on 11/26/2017. Renal ultrasound showing atrophic kidneys measured at 7cm each with increased echogenicity indicative of chronic renal disease Treatment option limited by lack of payor source. Will need to con't dialysis until appropriate insurance is obtained Nephrology following Vascular Surgery consulted for AVF placement while in the hospital (2) Anemia of renal disease Code(s): D63.1 - Anemia in chronic kidney disease Status: Acute Plan: Venofer and Epogen with dialysis. Monitor daily CBCs. (3) Hypertension Code(s): I10 - Essential (primary) hypertension Status: Chronic Plan: Well-controlled at this time. Amlodipine 5mg po daily. Clonidine 0.1mg PO PRN for Systolic >180 or Diastolic >110. (4) Secondary hyperparathyroidism (of renal origin) Code(s): N25.81 - Secondary hyperparathyroidism of renal origin Status: Chronic Plan: Continue Calcitriol 0.25mcg qday. (5) Hyperphosphatemia Code(s): E83.39 - Other disorders of phosphorus metabolism Status: Acute Plan: Continue PhosLo w/ meals. (6) Nutrition, metabolism, and development symptoms Code(s): R63.8 - Other symptoms and signs concerning food and fluid intake Status: Acute Plan: Fluid: * Tolerating PO. Electrolytes: * Monitor and replete as necessary. Nutrition: * Renal diet. (7) DVT prophylaxis Status: Acute Plan: Encourage ambulation. SCDs bilaterally. <Shirley Harrell N - 11/30/17 08:40> - Assessment and Plan Disposition: CM on board. Terry is working to obtain pt's information about length of stay in the [place] which will determine his ability to qualify for Medicaid. At this point, this process will take several days, likely including the weekend. Patient will remain inpatient. Hospital Course: 27 year old male with recent discovered hypertension (within the last 6 months), recently diagnosed with chronic kidney disease while in [place] which now appears to be end-stage renal disease. Patient seen in [place] and started on dialysis. Some workup was done but he does not know what the etiology of kidney disease is. Patient is being managed by nephrology with plans for dialysis MWF. Patient's cause of kidney failure is still unknown, his elevated BP is likely a contributing factor. Kidney US showed small and atrophic kidneys with increased echogenicity characteristic of medical renal disease. Receiving hemodialysis via Permcath MWF. [facility] consulted for [facility]F placement. W/CM assistance, Emergency Medicaid has been applied for, but will also have to have Medicare to be accepted at most outpatient dialysis facilities; this process can take 60-90 days. Therefore, does not meet requirements for transitional dialysis program until insurance is acceptable. He will likely have to remain inpatient until this can be arranged. <Shirley Harrell - 11/30/17 08:44> - Attending Attestation Patient case discussed with resident physicians I have independently examined the patient I have read the above note and agree with the assessment and plan as discussed with me I was involved in all medical decision making for this patient Jatin Zepeda MD <Jatin Zepeda - 11/30/17 16:28>
[2017-12-01 08:30] LABS: Baso # (Auto) 0.1 th/mm3 (0.0-0.2); Eos # (Auto) 0.3 th/mm3 (0.0-0.4); Eos % (Auto) 5.2 % (0.0-4.0); Hematocrit 22.6 % (39.0-51.0); Hemoglobin 7.7 gm/dL (13.0-17.0); Lymph # (Auto) 1.3 th/mm3 (1.0-4.8); Lymph % (Auto) 26.2 % (9.0-44.0); Mean Corpuscular HGB Conc 34.2 % (32.0-36.0); Mean Corpuscular Hemoglobin 32.5 pg (27.0-34.0); Mean Corpuscular Volume 95.1 fL (80.0-100.0); Mean Platelet Volume 7.4 fL (7.0-11.0); Mono # (Auto) 0.5 th/mm3 (0.0-0.9); Mono % (Auto) 10.1 % (0.0-8.0); Neut # (Auto) 2.8 th/mm3 (1.8-7.7); Neut % (Auto) 56.5 % (16.0-70.0); Platelet Count 213 th/mm3 (150-450); Red Blood Count 2.38 mil/mm3 (4.50-5.90); Red Cell Distribution Width 13.5 % (11.6-17.2)
[2017-12-01] MEDS: Sodium Chloride 0.9% 2 ML Flush BID IV.FLUSH SCH ×2 (08:44→20:37)
[2017-12-01] MEDS: amLODIPine 5 MG Tablet PO SCH (08:44)
[2017-12-01] MEDS: Calcitriol 0.25 MCG Capsule PO SCH (08:45)
[2017-12-01] MEDS: Calcium Acetate 667 MG Capsule PO SCH ×3 (08:45→17:36)
[2017-12-01] MEDS: Senna/Docusate Sodium 8.6/50 MG Tablet PO SCH ×2 (08:45→20:36)
[2017-12-01] MEDS: Iron Sucrose Inj 100 MG/5 ML Vial IV.PUSH SCH ×2 (09:00→15:03)
[2017-12-01] MEDS: Heparin 10,000 UNITS/10 ML Vial (for IV use) OTHER PRN (09:01)
[2017-12-01] MEDS: Epoetin Alfa Inj 4,000 UNIT/ML Vial IV.PUSH SCH (09:06)
[2017-12-01 09:27] LABS: Alanine Aminotransferase 11 U/L (12-78); Albumin 3.4 g/dL (3.4-5.0); Alkaline Phosphatase 49 U/L (45-117); Anion Gap 12 meq/L (5-15); Aspartate Aminotransferase 8 U/L (15-37); Blood Urea Nitrogen 72 mg/dL (7-18); Calcium 8.2 mg/dL (8.5-10.1); Carbon Dioxide 27.6 meq/L (21.0-32.0); Chloride 100 meq/L (98-107); Glomerular Filtration Rate 6 mL/min (>89); Glucose,Random 89 mg/dL (74-106); Sodium 140 meq/L (136-145); Total Protein 7.4 g/dL (6.4-8.2)
--- NOTE | 2017-12-01 16:27 | P.PNFP ---
Subjective Interval history: No problems or complaints. <SharriShirley N - 12/01/17 16:26> Results - Labs Result diagrams: 12/01/17 07:46 12/01/17 07:46 <Jatin Zepeda - 12/01/17 21:31> Abnormal lab results 12/01/17 12/01/17 Range/Units 07:46 07:46 RBC 2.38 L (4.50-5.90) mil/mm3 Hgb 7.7 L (13.0-17.0) gm/dL Hct 22.6 L (39.0-51.0) % [place] % (Auto) 10.1 H (0.0-8.0) % Eos % (Auto) 5.2 H (0.0-4.0) % BUN 72 H (7-18) mg/dL Creatinine 11.19 H* D (0.60-1.30) mg/dL Estimated GFR 6 L (>89) mL/min Calcium 8.2 L (8.5-10.1) mg/dL AST 8 L (15-37) U/L ALT 11 L (12-78) U/L Short CBC 12/01/17 Range/Units 07:46 WBC 5.0 (4.0-11.0) th/mm3 Hgb 7.7 L (13.0-17.0) gm/dL Hct 22.6 L (39.0-51.0) % Plt Count 213 (150-450) th/mm3 BMP 12/01/17 07:46 Sodium 140 Potassium 5.0 Chloride 100 Carbon Dioxide 27.6 BUN 72 H Creatinine 11.19 H* D Calcium 8.2 L Liver Function 12/01/17 Range/Units 07:46 Total Bilirubin 0.3 (0.2-1.0) mg/dL AST 8 L (15-37) U/L ALT 11 L (12-78) U/L Alkaline Phosphatase 49 (45-117) U/L Albumin 3.4 (3.4-5.0) g/dL <Jatin Zepeda - 12/01/17 21:31> Abnormal lab results 12/01/17 12/01/17 Range/Units 07:46 07:46 RBC 2.38 L (4.50-5.90) mil/mm3 Hgb 7.7 L (13.0-17.0) gm/dL Hct 22.6 L (39.0-51.0) % [place] % (Auto) 10.1 H (0.0-8.0) % Eos % (Auto) 5.2 H (0.0-4.0) % BUN 72 H (7-18) mg/dL Creatinine 11.19 H* D (0.60-1.30) mg/dL Estimated GFR 6 L (>89) mL/min Calcium 8.2 L (8.5-10.1) mg/dL AST 8 L (15-37) U/L ALT 11 L (12-78) U/L Short CBC 12/01/17 Range/Units 07:46 WBC 5.0 (4.0-11.0) th/mm3 Hgb 7.7 L (13.0-17.0) gm/dL Hct 22.6 L (39.0-51.0) % Plt Count 213 (150-450) th/mm3 BMP 12/01/17 07:46 Sodium 140 Potassium 5.0 Chloride 100 Carbon Dioxide 27.6 BUN 72 H Creatinine 11.19 H* D Calcium 8.2 L Liver Function 12/01/17 Range/Units 07:46 Total Bilirubin 0.3 (0.2-1.0) mg/dL AST 8 L (15-37) U/L ALT 11 L (12-78) U/L Alkaline Phosphatase 49 (45-117) U/L Albumin 3.4 (3.4-5.0) g/dL <Shirley Harrell N - 12/01/17 16:26> Physical Exam Vital signs: Vital Signs 11/30/17 23:58 12/01/17 00:00 12/01/17 04:00 Temperature 97.9 F 97.4 F L Pulse Rate 66 75 77 Respiratory Rate 17 17 Blood Pressure 117/55 L 112/57 L Pulse Oximetry 99 99 12/01/17 04:05 12/01/17 08:00 12/01/17 08:31 Temperature 97.8 F Pulse Rate 60 66 63 Respiratory Rate 16 Blood Pressure 124/62 Pulse Oximetry 100 12/01/17 16:00 Temperature 98.0 F Pulse Rate 89 Respiratory Rate 17 Blood Pressure 136/69 Pulse Oximetry 100 Intake & Output 12/01/17 12/01/1712/02/18 06:59 18:59 06:59 Intake Total 480 / 480 Output Total 1000 / 1000 Balance 480 / 480 -1000 / -1000 Weight 80.5 kg Intake: Oral 480 / 480 Output: Hemodialysis Amount 1000 / 1000 Other: # Voids 3 Date of Last Bowel Movement 12/01/17 <Jatin Zepeda - 12/01/17 21:31> Vital Signs 11/30/17 20:00 11/30/17 23:58 12/01/17 00:00 Temperature 97.8 F 97.9 F Pulse Rate 85 66 75 Respiratory Rate 17 17 Blood Pressure 136/71 117/55 L Pulse Oximetry 99 99 12/01/17 04:00 12/01/17 04:05 12/01/17 08:00 Temperature 97.4 F L 97.8 F Pulse Rate 77 60 66 Respiratory Rate 17 16 Blood Pressure 112/57 L 124/62 Pulse Oximetry 99 100 Intake & Output 11/30/17 12/01/17 12/01/17 18:59 06:59 18:59 Intake Total 1200 / 1200 480 / 480 Output Total 1000 / 1000 Balance 1200 / 1200 480 / 480 -1000 / -1000 Weight 80.5 kg Intake: Oral 1200 / 1200 480 / 480 Output: Hemodialysis Amount 1000 / 1000 Other: # Voids 4 3 # Bowel Movements 1 <Shirley Harrell - 12/01/17 16:26> Narrative: GENERAL: Well-nourished, well-developed patient. Pleasant. In NAD, lying comfortably in bed. SKIN: Warm and dry. CARDIOVASCULAR: Regular rate and rhythm without murmurs, gallops, or rubs. RESPIRATORY: Breath sounds equal and clear bilaterally. No accessory muscle use. EXTREMITIES: No cyanosis or edema. Site of AVF procedure on left arm clean, dry , and intact suturing. NEUROLOGICAL: Awake and alert. Motor and sensory grossly within normal limits. Normal speech. <Shirley Harrell - 12/01/17 16:26> Assessment and Plan - Assessment (1) CKD (chronic kidney disease) stage V requiring chronic dialysis Code(s): N18.6 - End stage renal disease; Z99.2 - Dependence on renal dialysis Status: Chronic (2) Anemia of renal disease Code(s): D63.1 - Anemia in chronic kidney disease Status: Acute (3) Hypertension Code(s): I10 - Essential (primary) hypertension Status: Chronic (4) Secondary hyperparathyroidism (of renal origin) Code(s): N25.81 - Secondary hyperparathyroidism of renal origin Status: Chronic (5) Hyperphosphatemia Code(s): E83.39 - Other disorders of phosphorus metabolism Status: Acute (6) Nutrition, metabolism, and development symptoms Code(s): R63.8 - Other symptoms and signs concerning food and fluid intake Status: Acute (7) DVT prophylaxis Status: Acute <Jatin Zepeda - 12/01/17 21:31> (1) CKD (chronic kidney disease) stage V requiring chronic dialysis Code(s): N18.6 - End stage renal disease; Z99.2 - Dependence on renal dialysis Status: Chronic Plan: Dialysis MWF via [facility] Perm Cath. s/p right upper extremity AV fistula creation on 11/26/2017. Renal ultrasound showing atrophic kidneys measured at 7cm each with increased echogenicity indicative of chronic renal disease Treatment option limited by lack of payor source. Will need to con't dialysis until appropriate insurance is obtained Nephrology following Vascular Surgery consulted for AVF placement while in the hospital (2) Anemia of renal disease Code(s): D63.1 - Anemia in chronic kidney disease Status: Acute Plan: Venofer and Epogen with dialysis. Monitor daily CBCs. (3) Hypertension Code(s): I10 - Essential (primary) hypertension Status: Chronic Plan: Well-controlled at this time. Amlodipine 5mg po daily. Clonidine 0.1mg PO PRN for Systolic >180 or Diastolic >110. (4) Secondary hyperparathyroidism (of renal origin) Code(s): N25.81 - Secondary hyperparathyroidism of renal origin Status: Chronic Plan: Continue Calcitriol 0.25mcg qday. (5) Hyperphosphatemia Code(s): E83.39 - Other disorders of phosphorus metabolism Status: Acute Plan: Continue PhosLo w/ meals. (6) Nutrition, metabolism, and development symptoms Code(s): R63.8 - Other symptoms and signs concerning food and fluid intake Status: Acute Plan: Fluid: * Tolerating PO. Electrolytes: * Monitor and replete as necessary. Nutrition: * Renal diet. (7) DVT prophylaxis Status: Acute Plan: Encourage ambulation. SCDs bilaterally. <Shirley Harrell N - 12/01/17 16:21> - Assessment and Plan Disposition: CM on board. Terry is working to obtain pt's information about length of stay in the [place] which will determine his ability to qualify for Medicaid. At this point, this process will take several days, likely including the weekend. Patient will remain inpatient. Hospital Course: 27 year old male with recent discovered hypertension (within the last 6 months), recently diagnosed with chronic kidney disease while in [place] which now appears to be end-stage renal disease. Patient seen in [place] and started on dialysis. Some workup was done but he does not know what the etiology of kidney disease is. Patient is being managed by nephrology with plans for dialysis MWF. Patient's cause of kidney failure is still unknown, his elevated BP is likely a contributing factor. Kidney US showed small and atrophic kidneys with increased echogenicity characteristic of medical renal disease. Receiving hemodialysis via Permcath MWF. Vasc consulted for AVF placement. W/CM assistance, Emergency Medicaid has been applied for, but will also have to have Medicare to be accepted at most outpatient dialysis facilities; this process can take 60-90 days. Therefore, does not meet requirements for transitional dialysis program until insurance is acceptable. He will likely have to remain inpatient until this can be arranged. <Shirley Harrell - 12/01/17 16:26> - Attending Attestation Pt. examined and case discussed with resident physicians. I have read the above note and agree with the assessment and plan as discussed with me. I was involved in all medical decision making for this patient. Jatin Zepeda MD <Jatin Zepeda - 12/01/17 21:31>
[2017-12-02 07:48] LABS: Hematocrit 21.9 % (39.0-51.0); Hemoglobin 7.8 gm/dL (13.0-17.0)
[2017-12-02 08:19] LABS: Calcium 8.2 mg/dL (8.5-10.1); Carbon Dioxide 32.5 meq/L (21.0-32.0); Potassium 4.8 meq/L (3.5-5.1)
[2017-12-02] MEDS: Calcitriol 0.25 MCG Capsule PO SCH (08:52)
[2017-12-02] MEDS: Senna/Docusate Sodium 8.6/50 MG Tablet PO SCH ×2 (08:52→20:51)
[2017-12-02] MEDS: Calcium Acetate 667 MG Capsule PO SCH ×3 (08:53→17:31)
[2017-12-02] MEDS: amLODIPine 5 MG Tablet PO SCH (08:53)
[2017-12-02] MEDS: Sodium Chloride 0.9% 2 ML Flush BID IV.FLUSH SCH ×2 (08:58→20:53)
--- NOTE | 2017-12-02 12:51 | P.PNFP ---
Subjective Interval history: Doing well today. Results - Labs Result diagrams: 12/02/17 06:25 12/02/17 06:25 Abnormal lab results 12/02/17 12/02/17 Range/Units 06:25 06:25 Hgb 7.8 L (13.0-17.0) gm/dL Hct 21.9 L (39.0-51.0) % Carbon Dioxide 32.5 H (21.0-32.0) meq/L BUN 51 H (7-18) mg/dL Creatinine 8.96 H (0.60-1.30) mg/dL Estimated GFR 7 L (>89) mL/min Calcium 8.2 L (8.5-10.1) mg/dL Short CBC 12/02/17 Range/Units 06:25 Hgb 7.8 L (13.0-17.0) gm/dL Hct 21.9 L (39.0-51.0) % BMP 12/02/17 06:25 Sodium 140 Potassium 4.8 Chloride 100 Carbon Dioxide 32.5 H BUN 51 H Creatinine 8.96 H Calcium 8.2 L Physical Exam Vital signs: Vital Signs 12/01/17 16:00 12/01/17 20:00 12/02/17 00:00 Temperature 98.0 F 98.5 F 97.5 F L Pulse Rate 89 87 80 Respiratory Rate 17 20 20 Blood Pressure 136/69 126/69 108/59 L Pulse Oximetry 100 100 100 12/02/17 04:00 12/02/17 08:32 12/02/17 09:00 Temperature 97.8 F 97.9 F Pulse Rate 84 65 71 Respiratory Rate 18 18 Blood Pressure 109/56 L 110/59 L Pulse Oximetry 99 100 12/02/17 11:41 Temperature 98.5 F Pulse Rate 69 Respiratory Rate 18 Blood Pressure 116/69 Pulse Oximetry 100 Intake & Output 12/01/17 12/02/17 12/02/17 18:59 06:59 18:59 Output Total 1000 / 1000 Balance -1000 / -1000 Weight 80.8 kg Output: Hemodialysis Amount 1000 / 1000 Other: # Voids 1 Date of Last Bowel Movement 12/01/17 Narrative: GENERAL: Well-nourished, well-developed patient. Pleasant. In NAD, lying comfortably in bed. SKIN: Warm and dry. CARDIOVASCULAR: Regular rate and rhythm without murmurs, gallops, or rubs. RESPIRATORY: Breath sounds equal and clear bilaterally. No accessory muscle use. EXTREMITIES: No cyanosis or edema. Site of AVF procedure on left arm clean, dry , and intact suturing. NEUROLOGICAL: Awake and alert. Motor and sensory grossly within normal limits. Normal speech. Assessment and Plan - Assessment (1) CKD (chronic kidney disease) stage V requiring chronic dialysis Code(s): N18.6 - End stage renal disease; Z99.2 - Dependence on renal dialysis Status: Chronic Plan: Dialysis MWF via [facility] Perm Cath. s/p right upper extremity AV fistula creation on 11/26/2017. Renal ultrasound showing atrophic kidneys measured at 7cm each with increased echogenicity indicative of chronic renal disease Treatment option limited by lack of payor source. Will need to con't dialysis until appropriate insurance is obtained Nephrology following S/p AVF creation by Vascular Surgery/ F/u in 1 month for AV fistula second stage procedure (2) Anemia of renal disease Code(s): D63.1 - Anemia in chronic kidney disease Status: Acute Plan: Venofer and Epogen with dialysis. Monitor daily CBCs. (3) Hypertension Code(s): I10 - Essential (primary) hypertension Status: Chronic Plan: Well-controlled at this time. Amlodipine 5mg po daily. Clonidine 0.1mg PO PRN for Systolic >180 or Diastolic >110. (4) Secondary hyperparathyroidism (of renal origin) Code(s): N25.81 - Secondary hyperparathyroidism of renal origin Status: Chronic Plan: Continue Calcitriol 0.25mcg qday. (5) Hyperphosphatemia Code(s): E83.39 - Other disorders of phosphorus metabolism Status: Acute Plan: Continue PhosLo w/ meals. - Assessment and Plan Disposition: CM on board. Terry is working to obtain pt's information about length of stay in the [place] which will determine his ability to qualify for Medicaid. At this point, this process will take several days, likely including the weekend. Patient will remain inpatient. Hospital Course: 27 year old male with recent discovered hypertension (within the last 6 months), recently diagnosed with chronic kidney disease while in [place] which now appears to be end-stage renal disease. Patient seen in [place] and started on dialysis. Some workup was done but he does not know what the etiology of kidney disease is. Patient is being managed by nephrology with plans for dialysis MWF. Patient's cause of kidney failure is still unknown, his elevated BP is likely a contributing factor. Kidney US showed small and atrophic kidneys with increased echogenicity characteristic of medical renal disease. Receiving hemodialysis via Permcath MWF. Vasc consulted for AVF placement. W/CM assistance, Emergency Medicaid has been applied for, but will also have to have Medicare to be accepted at most outpatient dialysis facilities; this process can take 60-90 days. Therefore, does not meet requirements for transitional dialysis program until insurance is acceptable. He will likely have to remain inpatient until this can be arranged. Getting DVT prophylaxis in dialysis.
--- NOTE | 2017-12-03 08:31 | P.PNFP ---
Subjective Interval history: No new complaints. Results - Labs Result diagrams: 12/02/17 06:25 12/02/17 06:25 Physical Exam Vital signs: Vital Signs 12/02/17 08:32 12/02/17 09:00 12/02/17 11:41 Temperature 97.9 F 98.5 F Pulse Rate 65 71 69 Respiratory Rate 18 18 Blood Pressure 110/59 L 116/69 Pulse Oximetry 100 100 12/02/17 16:00 12/02/17 20:00 12/03/17 00:00 Temperature 97.1 F L 98.3 F 97.6 F Pulse Rate 76 81 84 Respiratory Rate 18 18 18 Blood Pressure 122/65 129/63 130/71 Pulse Oximetry 99 99 96 12/03/17 04:47 Temperature 97.9 F Pulse Rate 65 Respiratory Rate 17 Blood Pressure 111/60 Pulse Oximetry 96 Intake & Output 12/02/17 12/03/17 12/03/17 18:59 06:59 18:59 Intake Total 1999 380 / 380 Output Total 0 / 0 700 / 700 Balance 1999 -320 / -320 Weight 82 kg Intake: Oral 1999 380 / 380 Output: Urine 0 / 0 700 / 700 Other: Date of Last Bowel Movement 12/02/17 # Bowel Movements 1 Narrative: GENERAL: Well-nourished, well-developed patient. Pleasant. In NAD, lying comfortably in bed. SKIN: Warm and dry. CARDIOVASCULAR: Regular rate and rhythm without murmurs, gallops, or rubs. RESPIRATORY: Breath sounds equal and clear bilaterally. No accessory muscle use. EXTREMITIES: No cyanosis or edema. Site of AVF procedure on left arm clean, dry , and intact suturing. NEUROLOGICAL: Awake and alert. Motor and sensory grossly within normal limits. Normal speech. Assessment and Plan - Assessment (1) CKD (chronic kidney disease) stage V requiring chronic dialysis Code(s): N18.6 - End stage renal disease; Z99.2 - Dependence on renal dialysis Status: Chronic Plan: Dialysis MWF via [facility] Perm Cath. s/p right upper extremity AV fistula creation on 11/26/2017. Renal ultrasound showing atrophic kidneys measured at 7cm each with increased echogenicity indicative of chronic renal disease Treatment option limited by lack of payor source. Will need to con't dialysis in -patient until appropriate insurance is obtained Nephrology following S/p AVF creation by Vascular Surgery/ F/u in 1 month for AV fistula second stage procedure (2) Anemia of renal disease Code(s): D63.1 - Anemia in chronic kidney disease Status: Acute Plan: Venofer and Epogen with dialysis. Monitor daily CBCs. (3) Hypertension Code(s): I10 - Essential (primary) hypertension Status: Chronic Plan: Well-controlled at this time. Amlodipine 5mg po daily. Clonidine 0.1mg PO PRN for Systolic >180 or Diastolic >110. (4) Secondary hyperparathyroidism (of renal origin) Code(s): N25.81 - Secondary hyperparathyroidism of renal origin Status: Chronic Plan: Continue Calcitriol 0.25mcg qday. (5) Hyperphosphatemia Code(s): E83.39 - Other disorders of phosphorus metabolism Status: Acute Plan: Continue PhosLo w/ meals. - Assessment and Plan Disposition: CM on board. W/CM assistance, Emergency Medicaid has been applied for, but will also have to have Medicare to be accepted at most outpatient dialysis facilities ; this process can take 60-90 days. Therefore, does not meet requirements for transitional dialysis program until insurance is acceptable. He will likely have to remain inpatient until this can be arranged. Hospital Course: 27 year old male with recent discovered hypertension (within the last 6 months), recently diagnosed with chronic kidney disease while in [place] which now appears to be end-stage renal disease. Patient seen in [place] and started on dialysis. Some workup was done but he does not know what the etiology of kidney disease is. Patient is being managed by nephrology with plans for dialysis MWF. Patient's cause of kidney failure is still unknown, his elevated BP is likely a contributing factor. Kidney US showed small and atrophic kidneys with increased echogenicity characteristic of medical renal disease. Receiving hemodialysis via Permcath MWF. Vasc consulted for AVF placement. Getting DVT prophylaxis in dialysis.
[2017-12-03] MEDS: Calcium Acetate 667 MG Capsule PO SCH ×3 (08:42→18:14)
[2017-12-03] MEDS: Senna/Docusate Sodium 8.6/50 MG Tablet PO SCH ×2 (08:42→20:29)
[2017-12-03] MEDS: Sodium Chloride 0.9% 2 ML Flush BID IV.FLUSH SCH ×2 (08:46→20:28)
[2017-12-03] MEDS: Heparin 10,000 UNITS/10 ML Vial (for IV use) OTHER PRN (13:55)
[2017-12-03] MEDS: Iron Sucrose Inj 100 MG/5 ML Vial IV.PUSH SCH ×2 (13:56→16:39)
[2017-12-03] MEDS: Epoetin Alfa Inj 4,000 UNIT/ML Vial IV.PUSH SCH (13:57)
--- NOTE | 2017-12-03 14:44 | P.PNNP ---
Subjective Interval history: Patient seen during his dialysis session today. No verbal complaints. Physical Exam Vital signs: Vital Signs 12/02/17 16:00 12/02/17 20:00 12/03/17 00:00 Temperature 97.1 F L 98.3 F 97.6 F Pulse Rate 76 81 84 Respiratory Rate 18 18 18 Blood Pressure 122/65 129/63 130/71 Pulse Oximetry 99 99 96 12/03/17 04:47 12/03/17 08:00 Temperature 97.9 F 98.1 F Pulse Rate 65 77 Respiratory Rate 17 16 Blood Pressure 111/60 122/69 Pulse Oximetry 96 100 Intake & Output 12/02/17 12/03/17 12/03/17 18:59 06:59 18:59 Intake Total 1999 380 / 380 Output Total 0 / 0 700 / 700 1000 / 1000 Balance 1999 -320 / -320 -1000 / -1000 Weight 82 kg Intake: Oral 1999 380 / 380 Output: Urine 0 / 0 700 / 700 Hemodialysis Amount 1000 / 1000 Other: Date of Last Bowel Movement 12/02/17 # Bowel Movements 1 Narrative: GENERAL: Well-nourished, well-developed patient. Pleasant. Patient was seen during his dialysis session today. SKIN: Warm and dry. CARDIOVASCULAR: Regular rate and rhythm without murmurs, gallops, or rubs. RESPIRATORY: Breath sounds equal and clear bilaterally. No accessory muscle use. EXTREMITIES: No cyanosis or edema. Site of AVF procedure on left arm clean, dry , and intact suturing. NEUROLOGICAL: Awake and alert. Motor and sensory grossly within normal limits. Normal speech. Assessment and Plan - Assessment (1) CKD (chronic kidney disease) stage V requiring chronic dialysis Code(s): N18.6 - End stage renal disease; Z99.2 - Dependence on renal dialysis Status: Chronic Plan: Renal US reveals very atrophic kidneys measured at 7cm each with increased echogenicity indicative of chronic renal disease. Other work up at this point negative. Given his renal atrophy marked renal atrophy kidney biopsy will not show any reversible pathology at this point in time. Serological studies providing no insight into etiology of his end-stage renal disease. As discussed with the patient and his family, it does appear that he is end- stage renal disease at this point in time and will require dialysis long-term. I am under the understanding that emergency Medicaid has been applied for, but will also have to have Medicare to be accepted at most (if not all) outpatient dialysis facilities; he was advised that this process can take upwards of 60-90 days. We do appreciate case management assistance in this regard. As he will likely not have an accepting outpatient dialysis facility until he has both Medicaid and Medicare, he will likely have to remain inpatient until this can be arranged. He does live in [place] and likely would not meet requirements for transitional dialysis program because of this. His family was inquiring about transplant, and I do feel that he is a good candidate to be worked up, but again the issues is a payor source. Will tentatively keep the patient on MWF hemodialysis schedule with next HD . The patient will be seen next week Wednesday unless otherwise indicated. Please call if any questions. Medication should be adjusted for the patient's renal failure when indicated. Avoid gadolinium which is contraindicated. (2) Secondary hyperparathyroidism (of renal origin) Code(s): N25.81 - Secondary hyperparathyroidism of renal origin Status: Chronic Plan: Continue Rocaltrol (3) Anemia of renal disease Code(s): D63.1 - Anemia in chronic kidney disease Status: Acute Plan: Venofer and Epogen with HD. (4) Hyperphosphatemia Code(s): E83.39 - Other disorders of phosphorus metabolism Status: Acute Plan: Continue with PhosLo (5) Fever Code(s): R50.9 - Fever, unspecified Status: Acute Plan: Resolved. BCx neg x48h. Apparently became itchy with Vanco. - Plan Patient presently has renal failure. Duration uncertain presently and etiology not entirely clear. Renal US reveals very atrophic kidneys measured at 7cm each with increased echogenicity indicative of chronic renal disease. Other work up at this point negative. Given his renal atrophy, it is doubtful that a renal biopsy would yield any reliable results and is not felt to be beneficial at this time as it would not change treatment course. As discussed with the patient and his family, it does appear that he is end- stage renal disease at this point in time and will require dialysis long-term. I am under the understanding that emergency Medicaid has been applied for, but will also have to have Medicare to be accepted at most (if not all) outpatient dialysis facilities; he was advised that this process can take upwards of 60-90 days. We do appreciate case management assistance in this regard. As he will likely not have an accepting outpatient dialysis facility until he has both Medicaid and Medicare, he will likely have to remain inpatient until this can be arranged. He does live in [place] and likely would not meet requirements for transitional dialysis program because of this. His family was inquiring about transplant, and I do feel that he is a good candidate to be worked up, but again the issues is a payor source. Will await finalization of screening labs to give us insight on underlying etiology, but unfortunately we not be able to provide this answer for the patient. We will consult vascular surgery to see if they would be agreeable for AVF placement while in hospital as he has a [facility] PermCath. The patient was provided educational handouts regarding long-term dialysis, access, and diet (in [place]) . Will tentatively keep the patient on MWF hemodialysis schedule with next HD 02/01. Medication should be adjusted for the patient's renal failure when indicated. Avoid gadolinium which is contraindicated.
[2017-12-03] MEDS: Calcitriol 0.25 MCG Capsule PO SCH (15:28)
[2017-12-03] MEDS: amLODIPine 5 MG Tablet PO SCH (15:28)
--- NOTE | 2017-12-03 16:55 | ECG ---
Date Performed: 12/02/2017 Time Performed: 16:16:31 PTAGE: 27 years EKG: Sinus rhythm ST changes compatible with early repolarization, probably within normal limits for age Since the pre vious tracing, no significant change noted NORMAL ECG PREVIOUS TRACING : 11/21/2017 23.14 DOCTOR: Og Lee Interpretating Date/Time 12/03/2017 16:54:48
[2017-12-04] MEDS: Senna/Docusate Sodium 8.6/50 MG Tablet PO SCH ×2 (09:16→20:11)
[2017-12-04] MEDS: Calcitriol 0.25 MCG Capsule PO SCH (09:16)
[2017-12-04] MEDS: Calcium Acetate 667 MG Capsule PO SCH ×3 (09:16→18:48)
[2017-12-04] MEDS: Sodium Chloride 0.9% 2 ML Flush BID IV.FLUSH SCH ×2 (09:17→20:11)
[2017-12-04] MEDS: amLODIPine 5 MG Tablet PO SCH (09:27)
--- NOTE | 2017-12-04 09:51 | P.PNFP ---
Subjective Interval history: Doing well today. Results - Labs Result diagrams: 12/02/17 06:25 12/02/17 06:25 Physical Exam Vital signs: Vital Signs 12/03/17 16:00 12/03/17 20:00 12/03/17 22:27 Temperature 98.4 F 98.9 F Pulse Rate 79 78 84 Respiratory Rate 18 18 Blood Pressure 123/66 128/56 L Pulse Oximetry 100 98 12/04/17 00:00 12/04/17 04:13 Temperature 99.2 F 98.6 F Pulse Rate 72 72 Respiratory Rate 18 20 Blood Pressure 128/63 118/57 L Pulse Oximetry 99 98 Intake & Output 12/03/17 12/04/17 12/04/17 18:59 06:59 18:59 Intake Total 800 / 800 480 / 480 Output Total 1500 / 1500 600 / 600 Balance -700 / -700 -120 / -120 Weight 82 kg Intake: Oral 800 / 800 480 / 480 Output: Urine 500 / 500 600 / 600 Hemodialysis Amount 1000 / 1000 Other: Date of Last Bowel Movement 12/03/17 Narrative: GENERAL: Well-nourished, well-developed patient. Pleasant. SKIN: Warm and dry. CARDIOVASCULAR: Regular rate and rhythm without murmurs, gallops, or rubs. RESPIRATORY: Breath sounds equal and clear bilaterally. No accessory muscle use. EXTREMITIES: No cyanosis or edema. Site of AVF procedure on left arm clean, dry , and intact suturing. NEUROLOGICAL: Awake and alert. Motor and sensory grossly within normal limits. Normal speech. Assessment and Plan - Assessment (1) CKD (chronic kidney disease) stage V requiring chronic dialysis Code(s): N18.6 - End stage renal disease; Z99.2 - Dependence on renal dialysis Status: Chronic Plan: Dialysis MWF via [facility] Perm Cath. s/p right upper extremity AV fistula creation on 11/26/2017. Renal ultrasound showing atrophic kidneys measured at 7cm each with increased echogenicity indicative of chronic renal disease Treatment option limited by lack of payor source. Will need to con't dialysis in -patient until appropriate insurance is obtained Nephrology following S/p AVF creation by Vascular Surgery on 11/27. Signed off, w/orders to f/u in 1 month for second stage procedure. (2) Anemia of renal disease Code(s): D63.1 - Anemia in chronic kidney disease Status: Acute Plan: Venofer and Epogen with dialysis. Monitor daily CBCs. (3) Hypertension Code(s): I10 - Essential (primary) hypertension Status: Chronic Plan: Well-controlled at this time. Amlodipine 5mg po daily. Clonidine 0.1mg PO PRN for Systolic >180 or Diastolic >110. (4) Secondary hyperparathyroidism (of renal origin) Code(s): N25.81 - Secondary hyperparathyroidism of renal origin Status: Chronic Plan: Continue Calcitriol 0.25mcg qday. (5) Hyperphosphatemia Code(s): E83.39 - Other disorders of phosphorus metabolism Status: Acute Plan: Continue PhosLo w/ meals. - Assessment and Plan Disposition: CM on board. W/CM assistance, Emergency Medicaid has been applied for, but will also have to have Medicare to be accepted at most outpatient dialysis facilities ; this process can take 60-90 days. Therefore, does not meet requirements for transitional dialysis program until insurance is acceptable. He will likely have to remain inpatient until this can be arranged. Hospital Course: 27 year old male with recent discovered hypertension (within the last 6 months), recently diagnosed with chronic kidney disease while in [place] which now appears to be end-stage renal disease. Patient seen in [place] and started on dialysis. Some workup was done but he does not know what the etiology of kidney disease is. Patient is being managed by nephrology with plans for dialysis MWF. Patient's cause of kidney failure is still unknown, his elevated BP is likely a contributing factor. Kidney US showed small and atrophic kidneys with increased echogenicity characteristic of medical renal disease. Receiving hemodialysis via Permcath MWF. Vasc consulted for AVF placement. Getting DVT prophylaxis in dialysis.
[2017-12-04 10:03] LABS: Hematocrit 23.5 % (39.0-51.0); Hemoglobin 8.8 gm/dL (13.0-17.0)
[2017-12-04 10:33] LABS: Calcium 8.5 mg/dL (8.5-10.1); Potassium 5.2 meq/L (3.5-5.1)
[2017-12-05] MEDS: amLODIPine 5 MG Tablet PO SCH (08:00)
[2017-12-05] MEDS: Calcium Acetate 667 MG Capsule PO SCH ×3 (08:00→17:32)
[2017-12-05] MEDS: Senna/Docusate Sodium 8.6/50 MG Tablet PO SCH ×2 (08:00→21:04)
[2017-12-05] MEDS: Calcitriol 0.25 MCG Capsule PO SCH (08:00)
[2017-12-05] MEDS: Sodium Chloride 0.9% 2 ML Flush BID IV.FLUSH SCH ×2 (08:13→21:03)
[2017-12-05 11:08] LABS: Hematocrit 23.4 % (39.0-51.0); Hemoglobin 8.4 gm/dL (13.0-17.0)
[2017-12-05 11:32] LABS: Calcium 8.6 mg/dL (8.5-10.1); Carbon Dioxide 27.1 meq/L (21.0-32.0); Potassium 5.6 meq/L (3.5-5.1)
--- NOTE | 2017-12-05 13:42 | P.PNFP ---
Subjective Interval history: 27 yo male with ESRD on dialysis admitted for acute dialysis, now with continued stay for dialysis coordination. Today feels well, no pain, normal appetite. Sutures from his dialysis catheter are bothering him a bit. No fevers/ chills, no redness/swelling of catheter site. Results - Labs Result diagrams: 12/05/17 09:43 12/05/17 09:43 Abnormal lab results 12/05/17 12/05/17 Range/Units 09:43 09:43 Hgb 8.4 L (13.0-17.0) gm/dL Hct 23.4 L (39.0-51.0) % Potassium 5.6 H (3.5-5.1) meq/L BUN 74 H (7-18) mg/dL Creatinine 10.82 H* D (0.60-1.30) mg/dL Estimated GFR 6 L (>89) mL/min Random Glucose 128 H (74-106) mg/dL Short CBC 12/05/17 Range/Units 09:43 Hgb 8.4 L (13.0-17.0) gm/dL Hct 23.4 L (39.0-51.0) % BMP 12/05/17 09:43 Sodium 140 Potassium 5.6 H Chloride 100 Carbon Dioxide 27.1 BUN 74 H Creatinine 10.82 H* D Calcium 8.6 Physical Exam Vital signs: Vital Signs 12/04/17 16:00 12/04/17 20:00 12/05/17 00:00 Temperature 97.8 F 97.8 F 97.9 F Pulse Rate 85 97 H 79 Respiratory Rate 16 18 18 Blood Pressure 129/67 125/68 121/61 Pulse Oximetry 100 99 100 12/05/17 04:00 12/05/17 08:00 Temperature 97.6 F 97.8 F Pulse Rate 72 73 Respiratory Rate 18 16 Blood Pressure 119/65 123/61 Pulse Oximetry 99 99 Intake & Output 12/04/17 12/05/17 12/05/17 18:59 06:59 18:59 Intake Total 1999 / 1999 Output Total 800 / 800 Balance 1200 / 1200 Weight 81 kg Intake: Oral 1999 Output: Urine 800 / 800 Other: # Voids 2 Date of Last Bowel Movement 12/03/17 - Constitutional no acute distress, average body habitus - Routine HEENT Exam Head: Present: normocephalic, atraumatic - Routine Respiratory Exam Present: CTA bilaterally. Absent: wheezes, crackles - Routine Cardiovascular Exam Present: RRR, S1, S2, murmur (MYESHA) - Routine Skin Exam Comments: Catheter site right upper chest c/d/i with two sutures securing catheter to skin , mild irritation suggestive of healing around suture, no drainage Assessment and Plan - Assessment (1) CKD (chronic kidney disease) stage V requiring chronic dialysis Code(s): N18.6 - End stage renal disease; Z99.2 - Dependence on renal dialysis Status: Chronic Plan: Renal US reveals very atrophic kidneys measured at 7cm each with increased echogenicity indicative of chronic renal disease. Other work up at this point negative. Dialysis MWF via [facility] Perm Cath. s/p right upper extremity AV fistula creation on 11/26/2017. Renal ultrasound showing atrophic kidneys measured at 7cm each with increased echogenicity indicative of chronic renal disease Treatment option limited by lack of payor source. Will need to con't dialysis in -patient until appropriate insurance is obtained Nephrology following, appreciate assistance * Given his renal atrophy, it is doubtful that a renal biopsy would yield any reliable results and is not felt to be beneficial at this time as it would not change treatment course. * As discussed with the patient and his family, it does appear that he is end- stage renal disease at this point in time and will require dialysis long-term. * I am under the understanding that emergency Medicaid has been applied for, but will also have to have Medicare to be accepted at most (if not all) outpatient dialysis facilities; he was advised that this process can take upwards of 60-90 days. We do appreciate case management assistance in this regard. * As he will likely not have an accepting outpatient dialysis facility until he has both Medicaid and Medicare, he will likely have to remain inpatient until this can be arranged. * He does live in [place] and likely would not meet requirements for transitional dialysis program because of this. * His family was inquiring about transplant, and I do feel that he is a good candidate to be worked up, but again the issues is a payor source. S/p AVF creation by Vascular Surgery on 11/27. Signed off, w/orders to f/u in 1 month for second stage procedure. (2) Anemia of renal disease Code(s): D63.1 - Anemia in chronic kidney disease Status: Acute Plan: Venofer and Epogen with dialysis. Monitor daily CBCs. (3) Hypertension Code(s): I10 - Essential (primary) hypertension Status: Chronic Plan: Well-controlled at this time. Amlodipine 5mg po daily. Clonidine 0.1mg PO PRN for Systolic >180 or Diastolic >110. (4) Secondary hyperparathyroidism (of renal origin) Code(s): N25.81 - Secondary hyperparathyroidism of renal origin Status: Chronic Plan: Continue Calcitriol 0.25mcg qday. (5) Hyperphosphatemia Code(s): E83.39 - Other disorders of phosphorus metabolism Status: Acute Plan: Continue PhosLo w/ meals. - Assessment and Plan Discharge Planning: Disposition: CM on board. W/CM assistance, Emergency Medicaid has been applied for, but will also have to have Medicare to be accepted at most outpatient dialysis facilities ; this process can take 60-90 days. Therefore, does not meet requirements for transitional dialysis program until insurance is acceptable. He will likely have to remain inpatient until this can be arranged. Hospital Course: 27 year old male with recent discovered hypertension (within the last 6 months), recently diagnosed with chronic kidney disease while in [place] which now appears to be end-stage renal disease. Patient seen in [place] and started on dialysis. Some workup was done but he does not know what the etiology of kidney disease is. Patient is being managed by nephrology with plans for dialysis MWF. Patient's cause of kidney failure is still unknown, his elevated BP is likely a contributing factor. Kidney US showed small and atrophic kidneys with increased echogenicity characteristic of medical renal disease. Receiving hemodialysis via Permcath MWF. Vasc consulted for AVF placement. Getting DVT prophylaxis in dialysis.
[2017-12-06 07:06] LABS: Hematocrit 23.2 % (39.0-51.0); Hemoglobin 8.3 gm/dL (13.0-17.0)
[2017-12-06 07:30] LABS: Calcium 8.4 mg/dL (8.5-10.1); Potassium 5.4 meq/L (3.5-5.1)
[2017-12-06] MEDS: Senna/Docusate Sodium 8.6/50 MG Tablet PO SCH ×2 (08:09→21:14)
[2017-12-06] MEDS: Calcium Acetate 667 MG Capsule PO SCH ×3 (08:09→17:26)
[2017-12-06] MEDS: Calcitriol 0.25 MCG Capsule PO SCH (08:09)
[2017-12-06] MEDS: amLODIPine 5 MG Tablet PO SCH (08:09)
[2017-12-06] MEDS: Sodium Chloride 0.9% 2 ML Flush BID IV.FLUSH SCH ×2 (08:12→21:14)
--- NOTE | 2017-12-06 09:30 | P.PNFP ---
Subjective Interval history: 27 yo male with ESRD on dialysis admitted for acute dialysis, now with continued stay for dialysis coordination. Patient seen and examined while undergoing dialysis this morning. Patient has no complaints at this time. Denies fever, chills, nausea, vomiting, abdominal pain, chest pain, shortness of breath, or leg pain. Results - Labs Result diagrams: 12/06/17 05:55 12/06/17 05:55 Abnormal lab results 12/05/17 12/05/17 12/06/17 Range/Units 09:43 09:43 05:55 Hgb 8.4 L 8.3 L (13.0-17.0) gm/dL Hct 23.4 L 23.2 L (39.0-51.0) % Potassium 5.6 H (3.5-5.1) meq/L BUN 74 H (7-18) mg/dL Creatinine 10.82 H* D (0.60-1.30) mg/dL Estimated GFR 6 L (>89) mL/min Random Glucose 128 H (74-106) mg/dL Calcium (8.5-10.1) mg/dL 12/06/17 Range/Units 05:55 Hgb (13.0-17.0) gm/dL Hct (39.0-51.0) % Potassium 5.4 H (3.5-5.1) meq/L BUN 88 H (7-18) mg/dL Creatinine 12.02 H* D (0.60-1.30) mg/dL Estimated GFR 5 L (>89) mL/min Random Glucose (74-106) mg/dL Calcium 8.4 L (8.5-10.1) mg/dL Short CBC 12/05/17 12/06/17 Range/Units 09:43 05:55 Hgb 8.4 L 8.3 L (13.0-17.0) gm/dL Hct 23.4 L 23.2 L (39.0-51.0) % BMP 12/05/17 12/06/17 09:43 05:55 Sodium 140 142 Potassium 5.6 H 5.4 H Chloride 100 106 Carbon Dioxide 27.1 24.0 BUN 74 H 88 H Creatinine 10.82 H* D 12.02 H* D Calcium 8.6 8.4 L Physical Exam Vital signs: Vital Signs 12/05/17 16:00 10/21/18 20:00 12/06/17 00:00 Temperature 98.0 F 98.0 F 97.7 F Pulse Rate 76 70 74 Respiratory Rate 16 18 18 Blood Pressure 127/64 122/71 127/72 Pulse Oximetry 99 100 100 12/06/17 04:00 12/06/17 08:00 Temperature 97.7 F 97.6 F Pulse Rate 78 74 Respiratory Rate 18 18 Blood Pressure 123/60 126/62 Pulse Oximetry 100 99 Intake & Output 12/05/17 12/06/17 12/06/17 18:59 06:59 18:59 Intake Total 1600 / 1600 Output Total 600 / 600 400 / 400 Balance 1000 / 1000 -400 / -400 Weight 80.8 kg Intake: Oral 1600 / 1600 Output: Urine 600 / 600 400 / 400 Other: Date of Last Bowel Movement 12/03/17 12/03/17 Narrative: GENERAL: Well-nourished, well-developed patient. Pleasant. In bed watching TV while undergoing dialysis, in NAD. SKIN: Warm and dry. PermCath in the right side chest wall intact, no active bleeding, no signs of infection. CARDIOVASCULAR: Regular rate and rhythm without murmurs, gallops, or rubs. RESPIRATORY: Breath sounds equal and clear bilaterally. No accessory muscle use. EXTREMITIES: No cyanosis or edema. Site of AVF procedure on left arm clean, dry , and intact suturing. NEUROLOGICAL: Awake and alert. Motor and sensory grossly within normal limits. Normal speech. Assessment and Plan - Assessment (1) CKD (chronic kidney disease) stage V requiring chronic dialysis Code(s): N18.6 - End stage renal disease; Z99.2 - Dependence on renal dialysis Status: Chronic Plan: Renal US reveals very atrophic kidneys measured at 7cm each with increased echogenicity indicative of chronic renal disease. Other work up at this point negative. Dialysis MWF via [facility] Perm Cath. s/p right upper extremity AV fistula creation on 11/26/2017. Renal ultrasound showing atrophic kidneys measured at 7cm each with increased echogenicity indicative of chronic renal disease Treatment option limited by lack of payor source. Will need to con't dialysis in -patient until appropriate insurance is obtained Nephrology following * Given his renal atrophy, it is doubtful that a renal biopsy would yield any reliable results and is not felt to be beneficial at this time as it would not change treatment course. * As discussed with the patient and his family, it does appear that he is end- stage renal disease at this point in time and will require dialysis long-term. * I am under the understanding that emergency Medicaid has been applied for, but will also have to have Medicare to be accepted at most (if not all) outpatient dialysis facilities; he was advised that this process can take upwards of 60-90 days. We do appreciate case management assistance in this regard. * As he will likely not have an accepting outpatient dialysis facility until he has both Medicaid and Medicare, he will likely have to remain inpatient until this can be arranged. * He does live in [place] and likely would not meet requirements for transitional dialysis program because of this. * His family was inquiring about transplant, and I do feel that he is a good candidate to be worked up, but again the issues is a payor source. S/p AVF creation by Vascular Surgery on 11/27. Signed off, w/orders to f/u in 1 month for second stage procedure. (2) Anemia of renal disease Code(s): D63.1 - Anemia in chronic kidney disease Status: Acute Plan: Venofer and Epogen with dialysis. H&H of 8.3. Patient remains a symptomatically, stable anemia of between 7.4- 8.8 for last week. Will hold off on daily H&H for now. (3) Hypertension Code(s): I10 - Essential (primary) hypertension Status: Chronic Plan: Well-controlled at this time. Amlodipine 5mg po daily. Clonidine 0.1mg PO PRN for Systolic >180 or Diastolic >110. (4) Secondary hyperparathyroidism (of renal origin) Code(s): N25.81 - Secondary hyperparathyroidism of renal origin Status: Chronic Plan: Continue Calcitriol 0.25mcg qday. (5) Hyperphosphatemia Code(s): E83.39 - Other disorders of phosphorus metabolism Status: Acute Plan: Continue PhosLo w/ meals. - Assessment and Plan Disposition: CM on board. W/CM assistance, Emergency Medicaid has been applied for, but will also have to have Medicare to be accepted at most outpatient dialysis facilities ; this process can take 60-90 days. Therefore, does not meet requirements for transitional dialysis program until insurance is acceptable. He will likely have to remain inpatient until this can be arranged. Hospital Course: 27 year old male with recent discovered hypertension (within the last 6 months), recently diagnosed with chronic kidney disease while in [place] which now appears to be end-stage renal disease. Patient seen in [place] and started on dialysis. Some workup was done but he does not know what the etiology of kidney disease is. Patient is being managed by nephrology with plans for dialysis MWF. Patient's cause of kidney failure is still unknown, his elevated BP is likely a contributing factor. Kidney US showed small and atrophic kidneys with increased echogenicity characteristic of medical renal disease. Receiving hemodialysis via Permcath MWF. Vasc consulted for AVF placement. Getting DVT prophylaxis in dialysis.
[2017-12-06] MEDS: Epoetin Alfa Inj 4,000 UNIT/ML Vial IV.PUSH SCH (11:30)
--- NOTE | 2017-12-06 12:14 | P.PNNP ---
Subjective Interval history: Patient seen during dialysis today. No verbal complaints. Physical Exam Vital signs: Vital Signs 12/05/17 16:00 12/05/17 20:00 12/06/17 00:00 Temperature 98.0 F 98.0 F 97.7 F Pulse Rate 76 70 74 Respiratory Rate 16 18 18 Blood Pressure 127/64 122/71 127/72 Pulse Oximetry 99 100 100 12/06/17 04:00 12/06/17 08:00 Temperature 97.7 F 97.6 F Pulse Rate 78 74 Respiratory Rate 18 18 Blood Pressure 123/60 126/62 Pulse Oximetry 100 99 Intake & Output 12/05/17 12/06/17 12/06/17 18:59 06:59 18:59 Intake Total 1600 / 1600 Output Total 600 / 600 400 / 400 Balance 1000 / 1000 -400 / -400 Weight 80.8 kg Intake: Oral 1600 / 1600 Output: Urine 600 / 600 400 / 400 Other: Date of Last Bowel Movement 12/03/17 12/03/17 Narrative: GENERAL: Well-nourished, well-developed patient. Pleasant. undergoing dialysis , in NAD. SKIN: Warm and dry. PermCath in the right side chest wall intact, no active bleeding, no signs of infection. CARDIOVASCULAR: Regular rate and rhythm without murmurs, gallops, or rubs. RESPIRATORY: Breath sounds equal and clear bilaterally. No accessory muscle use. EXTREMITIES: No cyanosis or edema. Site of AVF procedure on left arm clean, dry , and intact suturing. NEUROLOGICAL: Awake and alert. Motor and sensory grossly within normal limits. Normal speech. Assessment and Plan - Assessment (1) CKD (chronic kidney disease) stage V requiring chronic dialysis Code(s): N18.6 - End stage renal disease; Z99.2 - Dependence on renal dialysis Status: Chronic Plan: Renal US reveals very atrophic kidneys measured at 7cm each with increased echogenicity indicative of chronic renal disease. Other work up at this point negative. Given his renal atrophy marked renal atrophy kidney biopsy will not show any reversible pathology at this point in time. Serological studies providing no insight into etiology of his end-stage renal disease. As discussed with the patient and his family, it does appear that he is end- stage renal disease at this point in time and will require dialysis long-term. I am under the understanding that emergency Medicaid has been applied for, but will also have to have Medicare to be accepted at most (if not all) outpatient dialysis facilities; he was advised that this process can take upwards of 60-90 days. We do appreciate case management assistance in this regard. As he will likely not have an accepting outpatient dialysis facility until he has both Medicaid and Medicare, he will likely have to remain inpatient until this can be arranged. He does live in [place] and likely would not meet requirements for transitional dialysis program because of this. His family had inquired about transplant, and I do feel that he is a good candidate to be worked up, but again the issues is a payor source. Will tentatively keep the patient on MWF hemodialysis schedule with next HD . Patient does not require daily lab draws. I did consult dietary to educate the patient regarding need for dietary potassium restriction. Potassium restriction added to his current diet. Medication should be adjusted for the patient's renal failure when indicated. Avoid gadolinium which is contraindicated. (2) Secondary hyperparathyroidism (of renal origin) Code(s): N25.81 - Secondary hyperparathyroidism of renal origin Status: Chronic Plan: Continue Rocaltrol (3) Anemia of renal disease Code(s): D63.1 - Anemia in chronic kidney disease Status: Acute Plan: Venofer and Epogen with HD. (4) Hyperphosphatemia Code(s): E83.39 - Other disorders of phosphorus metabolism Status: Acute Plan: Continue with PhosLo (5) Fever Code(s): R50.9 - Fever, unspecified Status: Acute Plan: Resolved. BCx neg x48h. Apparently became itchy with Vanco. - Plan Patient presently has renal failure. Duration uncertain presently and etiology not entirely clear. Renal US reveals very atrophic kidneys measured at 7cm each with increased echogenicity indicative of chronic renal disease. Other work up at this point negative. Given his renal atrophy, it is doubtful that a renal biopsy would yield any reliable results and is not felt to be beneficial at this time as it would not change treatment course. As discussed with the patient and his family, it does appear that he is end- stage renal disease at this point in time and will require dialysis long-term. I am under the understanding that emergency Medicaid has been applied for, but will also have to have Medicare to be accepted at most (if not all) outpatient dialysis facilities; he was advised that this process can take upwards of 60-90 days. We do appreciate case management assistance in this regard. As he will likely not have an accepting outpatient dialysis facility until he has both Medicaid and Medicare, he will likely have to remain inpatient until this can be arranged. He does live in [place] and likely would not meet requirements for transitional dialysis program because of this. His family was inquiring about transplant, and I do feel that he is a good candidate to be worked up, but again the issues is a payor source. Will await finalization of screening labs to give us insight on underlying etiology, but unfortunately we not be able to provide this answer for the patient. We will consult vascular surgery to see if they would be agreeable for AVF placement while in hospital as he has a [facility] PermCath. The patient was provided educational handouts regarding long-term dialysis, access, and diet (in Romanian) . Will tentatively keep the patient on MWF hemodialysis schedule with next HD 02/01. Medication should be adjusted for the patient's renal failure when indicated. Avoid gadolinium which is contraindicated.
--- NOTE | 2017-12-07 08:27 | P.PNFP ---
Subjective Interval history: Patient seen and examined this morning. He has no complaints at this time. Denies fever, chills, chest pain, shortness of breath, leg pain, or edema. No bleeding, or signs of infection from PermCath or AV fistula site. Results - Labs Result diagrams: 12/06/17 05:55 12/06/17 05:55 Physical Exam Vital signs: Vital Signs 12/06/17 16:00 12/06/17 20:00 12/06/17 23:52 Temperature 98 F 98.4 F 98.0 F Pulse Rate 84 85 80 Respiratory Rate 18 20 16 Blood Pressure 115/67 118/61 115/65 Pulse Oximetry 99 100 96 12/07/17 04:37 12/07/17 07:53 Temperature 97.9 F 98.1 F Pulse Rate 72 75 Respiratory Rate 18 16 Blood Pressure 109/56 L 110/56 L Pulse Oximetry 96 99 Intake & Output 12/06/17 12/07/17 12/07/17 18:59 06:59 18:59 Intake Total 760 / 760 Output Total 1999 Balance -1999 760 / 760 Weight 81 kg Intake: Oral 760 / 760 Output: Hemodialysis Amount 1999 Other: Post Void Residual 2 # Voids 2 Date of Last Bowel Movement 12/06/17 # Bowel Movements 1 Narrative: GENERAL: Well-nourished, well-developed patient. Pleasant. undergoing dialysis , in NAD. SKIN: Warm and dry. PermCath in the right side chest wall intact, no active bleeding, no signs of infection. CARDIOVASCULAR: Regular rate and rhythm without murmurs, gallops, or rubs. RESPIRATORY: Breath sounds equal and clear bilaterally. No accessory muscle use. EXTREMITIES: No cyanosis or edema. Site of AVF procedure on left arm clean, dry , and intact suturing. NEUROLOGICAL: Awake and alert. Motor and sensory grossly within normal limits. Normal speech. Assessment and Plan - Assessment (1) CKD (chronic kidney disease) stage V requiring chronic dialysis Code(s): N18.6 - End stage renal disease; Z99.2 - Dependence on renal dialysis Status: Chronic Plan: Renal US reveals very atrophic kidneys measured at 7cm each with increased echogenicity indicative of chronic renal disease. Other work up at this point negative. Dialysis MWF via [facility] Perm Cath. s/p right upper extremity AV fistula creation on 11/26/2017. Renal ultrasound showing atrophic kidneys measured at 7cm each with increased echogenicity indicative of chronic renal disease Treatment option limited by lack of payor source. Will need to con't dialysis in -patient until appropriate insurance is obtained Nephrology following * Given his renal atrophy, it is doubtful that a renal biopsy would yield any reliable results and is not felt to be beneficial at this time as it would not change treatment course. * As discussed with the patient and his family, it does appear that he is end- stage renal disease at this point in time and will require dialysis long-term. * I am under the understanding that emergency Medicaid has been applied for, but will also have to have Medicare to be accepted at most (if not all) outpatient dialysis facilities; he was advised that this process can take upwards of 60-90 days. We do appreciate case management assistance in this regard. * As he will likely not have an accepting outpatient dialysis facility until he has both Medicaid and Medicare, he will likely have to remain inpatient until this can be arranged. * He does live in [place] and likely would not meet requirements for transitional dialysis program because of this. * His family was inquiring about transplant, and I do feel that he is a good candidate to be worked up, but again the issues is a payor source. S/p AVF creation by Vascular Surgery on 11/27. Signed off, w/orders to f/u in 1 month for second stage procedure. (2) Anemia of renal disease Code(s): D63.1 - Anemia in chronic kidney disease Status: Acute Plan: Venofer and Epogen with dialysis. H&H of 8.3. Patient remains a symptomatically, stable anemia of between 7.4- 8.8 for last week. Will hold off on daily H&H for now. (3) Hypertension Code(s): I10 - Essential (primary) hypertension Status: Chronic Plan: Well-controlled at this time. Amlodipine 5mg po daily. Clonidine 0.1mg PO PRN for Systolic >180 or Diastolic >110. (4) Secondary hyperparathyroidism (of renal origin) Code(s): N25.81 - Secondary hyperparathyroidism of renal origin Status: Chronic Plan: Continue Calcitriol 0.25mcg qday. (5) Hyperphosphatemia Code(s): E83.39 - Other disorders of phosphorus metabolism Status: Acute Plan: Continue PhosLo w/ meals. - Assessment and Plan Disposition: CM on board. W/CM assistance, Emergency Medicaid has been applied for, but will also have to have Medicare to be accepted at most outpatient dialysis facilities ; this process can take 60-90 days. Therefore, does not meet requirements for transitional dialysis program until insurance is acceptable. He will likely have to remain inpatient until this can be arranged. Hospital Course: 27 year old male with recent discovered hypertension (within the last 6 months), recently diagnosed with chronic kidney disease while in [place] which now appears to be end-stage renal disease. Patient seen in [place] and started on dialysis. Some workup was done but he does not know what the etiology of kidney disease is. Patient is being managed by nephrology with plans for dialysis MWF. Patient's cause of kidney failure is still unknown, his elevated BP is likely a contributing factor. Kidney US showed small and atrophic kidneys with increased echogenicity characteristic of medical renal disease. Receiving hemodialysis via Permcath MWF. Vasc consulted for AVF placement. Getting DVT prophylaxis in dialysis.
[2017-12-07] MEDS: amLODIPine 5 MG Tablet PO SCH (08:43)
[2017-12-07] MEDS: Senna/Docusate Sodium 8.6/50 MG Tablet PO SCH ×2 (08:43→21:01)
[2017-12-07] MEDS: Calcium Acetate 667 MG Capsule PO SCH ×3 (08:43→18:23)
[2017-12-07] MEDS: Calcitriol 0.25 MCG Capsule PO SCH (08:43)
[2017-12-07] MEDS: Sodium Chloride 0.9% 2 ML Flush BID IV.FLUSH SCH ×2 (08:44→21:01)
--- NOTE | 2017-12-07 16:55 | P.DIET ---
Nutritional Evaluation Type of nutrition evaluation: initial Nutrition consult regarding: Diet Evaluation Nutrition screening: MDC (diet education on low potassium diet) Subjective Subjective Comments: Pt had prior knowledge about renal/low potassium diet. Objective - Objective Dietitian Reviewed in Medical Record: Current diet, Labs Assessment Assessment: [facility] [place] diet received on 12/06. RD educated pt on low potassium diet on 12/07. Pt attentive and stated he understands why the diet is important. RD provided educational materials on various foods with low-high potassium. Recommendations: RD will follow up for questions as needed
[2017-12-08] MEDS: amLODIPine 5 MG Tablet PO SCH (09:30)
[2017-12-08] MEDS: Calcium Acetate 667 MG Capsule PO SCH ×3 (09:30→18:21)
[2017-12-08] MEDS: Sodium Chloride 0.9% 2 ML Flush BID IV.FLUSH SCH ×2 (09:31→20:57)
--- NOTE | 2017-12-08 11:02 | P.PNFP ---
Subjective Interval history: No problems or complaints. Results - Labs Result diagrams: 12/08/17 14:51 12/08/17 14:51 Physical Exam Vital signs: Vital Signs 12/07/17 12:00 12/07/17 16:04 12/07/17 19:57 Temperature 98.2 F 98.4 F 97.9 F Pulse Rate 77 94 H 88 Respiratory Rate 17 16 18 Blood Pressure 119/60 126/69 115/66 Pulse Oximetry 100 98 99 12/08/17 00:06 12/08/17 08:00 Temperature 97.6 F 98 F Pulse Rate 70 64 Respiratory Rate 17 15 Blood Pressure 123/68 137/63 Pulse Oximetry 97 100 Intake & Output 12/07/17 12/08/17 12/08/17 18:59 06:59 18:59 Intake Total 740 / 740 480 / 480 Balance 740 / 740 480 / 480 Weight 81 kg Intake: Oral 740 / 740 480 / 480 Other: # Voids 3 1 Date of Last Bowel Movement 12/06/17 12/06/17 # Bowel Movements 1 Narrative: GENERAL: Well-nourished, well-developed patient. Pleasant. Undergoing dialysis , in NAD. SKIN: Warm and dry. PermCath in the right side chest wall intact, no active bleeding, no signs of infection. CARDIOVASCULAR: Regular rate and rhythm without murmurs, gallops, or rubs. RESPIRATORY: Breath sounds equal and clear bilaterally. No accessory muscle use. EXTREMITIES: No cyanosis or edema. Site of AVF procedure on left arm clean, dry , and intact suturing. NEUROLOGICAL: Awake and alert. Motor and sensory grossly within normal limits. Normal speech. Assessment and Plan - Assessment (1) CKD (chronic kidney disease) stage V requiring chronic dialysis Code(s): N18.6 - End stage renal disease; Z99.2 - Dependence on renal dialysis Status: Chronic Plan: Dialysis MWF via [facility] Perm Cath. S/p right upper extremity AV fistula creation on 11/26/2017. (2) Anemia of renal disease Code(s): D63.1 - Anemia in chronic kidney disease Status: Acute Plan: Venofer and Epogen with dialysis. H&H of 8.3. Patient remains a symptomatically, stable anemia of between 7.4- 8.8 for last week. Will hold off on daily H&H for now. (3) Hypertension Code(s): I10 - Essential (primary) hypertension Status: Chronic Plan: Amlodipine 5mg po daily. Clonidine 0.1mg PO PRN for Systolic >180 or Diastolic >110. (4) Secondary hyperparathyroidism (of renal origin) Code(s): N25.81 - Secondary hyperparathyroidism of renal origin Status: Chronic Plan: Continue Calcitriol 0.25mcg qday. (5) Hyperphosphatemia Code(s): E83.39 - Other disorders of phosphorus metabolism Status: Acute Plan: Continue PhosLo w/ meals. - Assessment and Plan Disposition: CM on board. W/CM assistance, Emergency Medicaid has been applied for, but will also have to have Medicare to be accepted at most outpatient dialysis facilities ; this process can take 60-90 days. Therefore, does not meet requirements for transitional dialysis program until insurance is acceptable. He will likely have to remain inpatient until this can be arranged. Hospital Course: 27 year old male with recent discovered hypertension (within the last 6 months), recently diagnosed with chronic kidney disease while in [place] which now appears to be end-stage renal disease. Patient seen in [place] and started on dialysis. Some workup was done but he does not know what the etiology of kidney disease is. Patient is being managed by nephrology with plans for dialysis MWF. Patient's cause of kidney failure is still unknown, his elevated BP is likely a contributing factor. Kidney US showed small and atrophic kidneys with increased echogenicity characteristic of medical renal disease. Receiving hemodialysis via Permcath MWF. Vasc consulted for AVF placement. Getting DVT prophylaxis in dialysis.
[2017-12-08] MEDS: Epoetin Alfa Inj 4,000 UNIT/ML Vial IV.PUSH SCH (11:22)
[2017-12-08] MEDS: Senna/Docusate Sodium 8.6/50 MG Tablet PO SCH ×2 (13:30→20:57)
[2017-12-08] MEDS: Calcitriol 0.25 MCG Capsule PO SCH (15:15)
[2017-12-08 15:27] LABS: Baso # (Auto) 0.1 th/mm3 (0.0-0.2); Baso % (Auto) 0.6 % (0.0-2.0); Eos # (Auto) 0.2 th/mm3 (0.0-0.4); Eos % (Auto) 1.6 % (0.0-4.0); Hematocrit 29.8 % (39.0-51.0); Hemoglobin 10.6 gm/dL (13.0-17.0); Lymph # (Auto) 1.2 th/mm3 (1.0-4.8); Lymph % (Auto) 10.1 % (9.0-44.0); Mean Corpuscular HGB Conc 35.4 % (32.0-36.0); Mean Corpuscular Hemoglobin 34.2 pg (27.0-34.0); Mean Corpuscular Volume 96.4 fL (80.0-100.0); Mean Platelet Volume 7.6 fL (7.0-11.0); Mono # (Auto) 0.8 th/mm3 (0.0-0.9); Mono % (Auto) 7.1 % (0.0-8.0); Neut # (Auto) 9.2 th/mm3 (1.8-7.7); Neut % (Auto) 80.6 % (16.0-70.0); Platelet Count 238 th/mm3 (150-450); Red Blood Count 3.09 mil/mm3 (4.50-5.90); Red Cell Distribution Width 14.6 % (11.6-17.2); White Blood Count 11.4 th/mm3 (4.0-11.0)
[2017-12-08 15:52] LABS: Albumin 3.9 g/dL (3.4-5.0); Calcium 8.6 mg/dL (8.5-10.1); Phosphorus 3.6 mg/dL (2.5-4.9); Potassium 3.6 meq/L (3.5-5.1)
[2017-12-09] MEDS: amLODIPine 5 MG Tablet PO SCH (09:10)
[2017-12-09] MEDS: Calcium Acetate 667 MG Capsule PO SCH ×3 (09:10→17:30)
[2017-12-09] MEDS: Calcitriol 0.25 MCG Capsule PO SCH (09:10)
[2017-12-09] MEDS: Sodium Chloride 0.9% 2 ML Flush BID IV.FLUSH SCH ×2 (09:10→21:02)
[2017-12-09] MEDS: Senna/Docusate Sodium 8.6/50 MG Tablet PO SCH ×2 (09:10→21:02)
--- NOTE | 2017-12-09 10:48 | P.PNFP ---
Subjective Interval history: No problems/complaints. Results - Labs Result diagrams: 12/08/17 14:51 12/08/17 14:51 Abnormal lab results 12/08/17 12/08/17 Range/Units 14:51 14:51 WBC 11.4 H (4.0-11.0) th/mm3 RBC 3.09 L (4.50-5.90) mil/mm3 Hgb 10.6 L (13.0-17.0) gm/dL Hct 29.8 L (39.0-51.0) % MCH 34.2 H (27.0-34.0) pg Neut % (Auto) 80.6 H (16.0-70.0) % Neut # (Auto) 9.2 H (1.8-7.7) th/mm3 Chloride 97 L (98-107) meq/L Carbon Dioxide 35.0 H (21.0-32.0) meq/L BUN 36 H (7-18) mg/dL Creatinine 7.14 H (0.60-1.30) mg/dL Estimated GFR 9 L (>89) mL/min Random Glucose 142 H (74-106) mg/dL Short CBC 12/08/17 Range/Units 14:51 WBC 11.4 H (4.0-11.0) th/mm3 Hgb 10.6 L (13.0-17.0) gm/dL Hct 29.8 L (39.0-51.0) % Plt Count 238 (150-450) th/mm3 BMP 12/08/17 14:51 Sodium 140 Potassium 3.6 Chloride 97 L Carbon Dioxide 35.0 H BUN 36 H Creatinine 7.14 H Calcium 8.6 Liver Function 12/08/17 Range/Units 14:51 Albumin 3.9 (3.4-5.0) g/dL Physical Exam Vital signs: Vital Signs 12/08/17 12:00 12/08/17 16:00 12/08/17 20:00 Temperature 97.8 F 98.5 F 98.8 F Pulse Rate 79 94 H 102 H Respiratory Rate 16 16 18 Blood Pressure 142/70 H 116/65 118/68 Pulse Oximetry 100 98 98 12/09/17 08:00 Temperature 97.9 F Pulse Rate 68 Respiratory Rate 16 Blood Pressure 118/62 Pulse Oximetry 100 Intake & Output 1012/09/17 12/09/17 18:59 06:59 18:59 Intake Total 2160 / 2160 320 / 320 Output Total 1999 Balance 160 / 160 320 / 320 Intake: Oral 2160 / 2160 320 / 320 Output: Hemodialysis Amount 1999 Other: # Voids 2 2 Date of Last Bowel Movement 12/08/17 # Bowel Movements 1 Narrative: GENERAL: Well-nourished, well-developed patient. Pleasant. Undergoing dialysis , in NAD. SKIN: Warm and dry. PermCath in the right side chest wall intact, no active bleeding, no signs of infection. CARDIOVASCULAR: Regular rate and rhythm without murmurs, gallops, or rubs. RESPIRATORY: Breath sounds equal and clear bilaterally. No accessory muscle use. EXTREMITIES: No cyanosis or edema. Site of AVF procedure on left arm clean, dry , and intact suturing. NEUROLOGICAL: Awake and alert. Motor and sensory grossly within normal limits. Normal speech. Assessment and Plan - Assessment (1) CKD (chronic kidney disease) stage V requiring chronic dialysis Code(s): N18.6 - End stage renal disease; Z99.2 - Dependence on renal dialysis Status: Chronic Plan: Dialysis MWF via [facility] Perm Cath until placement obtained. See dispo below S/p right upper extremity AV fistula creation on 11/26/2017. (2) Anemia of renal disease Code(s): D63.1 - Anemia in chronic kidney disease Status: Acute Plan: Venofer and Epogen with dialysis. (3) Hypertension Code(s): I10 - Essential (primary) hypertension Status: Chronic Plan: Amlodipine 5mg po daily. Clonidine 0.1mg PO PRN for Systolic >180 or Diastolic >110. (4) Secondary hyperparathyroidism (of renal origin) Code(s): N25.81 - Secondary hyperparathyroidism of renal origin Status: Chronic Plan: Continue Calcitriol 0.25mcg qday. (5) Hyperphosphatemia Code(s): E83.39 - Other disorders of phosphorus metabolism Status: Acute Plan: Continue PhosLo w/ meals. - Assessment and Plan Disposition: CM Consulted Update: CM contacted [facility] yesterday for outpatient care. Patient being reviewed for PASS TO PAY PROGRAM until he gets insurance coverage. Will continue to monitor CM notes for updates. Emergency Medicaid has been applied for, but will also have to have Medicare to be accepted at most outpatient dialysis facilities; this process can take 60-90 days. He will likely have to remain inpatient until this can be arranged. Hospital Course: 27 year old male with recent discovered hypertension (within the last 6 months), recently diagnosed with chronic kidney disease while in [place] which now appears to be end-stage renal disease. Patient seen in [place] and started on dialysis. Some workup was done but he does not know what the etiology of kidney disease is. Patient is being managed by nephrology with plans for dialysis MWF. Patient's cause of kidney failure is still unknown, his elevated BP is likely a contributing factor. Kidney US showed small and atrophic kidneys with increased echogenicity characteristic of medical renal disease. Receiving hemodialysis via Permcath MWF. Vasc consulted for AVF placement. Getting DVT prophylaxis in dialysis.
[2017-12-10] MEDS: Senna/Docusate Sodium 8.6/50 MG Tablet PO SCH ×2 (09:31→20:22)
[2017-12-10] MEDS: Calcitriol 0.25 MCG Capsule PO SCH (09:31)
[2017-12-10] MEDS: Calcium Acetate 667 MG Capsule PO SCH ×3 (09:31→20:19)
[2017-12-10] MEDS: amLODIPine 5 MG Tablet PO SCH (10:32)
[2017-12-10] MEDS: Sodium Chloride 0.9% 2 ML Flush BID IV.FLUSH SCH ×2 (10:33→20:23)
--- NOTE | 2017-12-10 11:47 | P.PNNP ---
Subjective Interval history: Pt seen during HD. Tolerating well and has no complaints. <Darlene Finnegan R - Last Filed: 12/10/17 14:09> Physical Exam Vital signs: Vital Signs 12/09/17 12:00 12/09/17 16:00 12/09/17 20:00 Temperature 98.2 F 98.3 F 97.8 F Pulse Rate 84 77 72 Respiratory Rate 16 17 17 Blood Pressure 123/62 115/66 122/57 L Pulse Oximetry 99 100 99 12/10/17 00:11 12/10/17 08:00 Temperature 97.2 F L 97.8 F Pulse Rate 68 70 Respiratory Rate 17 18 Blood Pressure 119/57 L 117/65 Pulse Oximetry 98 99 Intake & Output 12/09/17 12/10/17 12/10/17 18:59 06:59 18:59 Intake Total 760 / 760 480 / 480 Balance 760 / 760 480 / 480 Weight 81 kg Intake: Oral 760 / 760 480 / 480 Other: # Voids 3 2 Date of Last Bowel Movement 12/08/17 # Bowel Movements 3 - Constitutional no acute distress - Routine HEENT Exam Head: Present: normocephalic - Routine Respiratory Exam Present: CTA bilaterally - Routine Cardiovascular Exam Present: RRR, S1, S2 - Routine Abdominal Exam Present: soft - Routine Extremities Exam Absent: edema - Routine Skin Exam Present: intact - Routine Neurological Exam Present: alert, oriented X3 <Darlene Finnegan - Last Filed: 12/10/17 14:09> Vital signs: Vital Signs 12/10/17 16:51 12/10/17 18:02 12/10/17 20:31 Temperature 98.6 F 98.1 F Pulse Rate 93 H 93 H Respiratory Rate 17 16 Blood Pressure 114/62 113/64 Pulse Oximetry 100 99 99 12/11/17 00:00 12/11/17 08:00 12/11/17 09:10 Temperature 98.3 F 98.4 F Pulse Rate 92 H 81 Respiratory Rate 18 18 Blood Pressure 111/55 L 127/59 L Pulse Oximetry 100 99 99 12/11/17 12:00 12/11/17 16:17 Temperature 98.5 F 98.4 F Pulse Rate 72 88 Respiratory Rate 18 18 Blood Pressure 117/58 L 110/58 L Pulse Oximetry 99 99 Intake & Output 12/10/17 12/11/1712/11/18 18:59 06:59 18:59 Intake Total 1800 / 1800 380 / 380 Output Total 1999 Balance -200 / -200 380 / 380 Weight 85.4 kg Intake: Oral 1800 / 1800 380 / 380 Output: Hemodialysis Amount 1999 Other: # Voids 1 3 Date of Last Bowel Movement 12/10/17 12/10/17 <Bruce Whitney - Last Filed: 12/11/17 16:26> Assessment and Plan - Assessment (1) CKD (chronic kidney disease) stage V requiring chronic dialysis Code(s): N18.6 - End stage renal disease; Z99.2 - Dependence on renal dialysis Status: Chronic Plan: Pt seen during HD and tolerating well. R AVF healing well with palpable thrill and audible bruit. Pt was counselled via use of [employer] for translation. is talking to case management in regards to transitional dialysis and is not cleared for this program on our end until all details have been arranged in writing with a written agreement in Stateless with patient signature. He will also have to have transportation scheduled as he lives in [place]. Has been counselled that he will have a specific chair time and will be required to abide by the transitional guidelines as he will be dismissed from program if non-compliant. It should also be noted that as he lives in [place] and the only facility there is [facility]. It may ease transition to outpatient dialysis once insurance is approved if a [facility] physician takes over his care, but will defer this to . Continue HD MWF. Medication should be adjusted for the patient's renal failure when indicated. Avoid gadolinium which is contraindicated. (2) Secondary hyperparathyroidism (of renal origin) Code(s): N25.81 - Secondary hyperparathyroidism of renal origin Status: Chronic Plan: Continue Rocaltrol (3) Anemia of renal disease Code(s): D63.1 - Anemia in chronic kidney disease Status: Acute Plan: Venofer and Epogen with HD. (4) Hyperphosphatemia Code(s): E83.39 - Other disorders of phosphorus metabolism Status: Acute Plan: Continue with PhosLo (5) Fever Code(s): R50.9 - Fever, unspecified Status: Acute Plan: Resolved. BCx neg x48h. Apparently became itchy with Vanco. - Plan Patient presently has renal failure. Duration uncertain presently and etiology not entirely clear. Renal US reveals very atrophic kidneys measured at 7cm each with increased echogenicity indicative of chronic renal disease. Other work up at this point negative. Given his renal atrophy, it is doubtful that a renal biopsy would yield any reliable results and is not felt to be beneficial at this time as it would not change treatment course. As discussed with the patient and his family, it does appear that he is end- stage renal disease at this point in time and will require dialysis long-term. I am under the understanding that emergency Medicaid has been applied for, but will also have to have Medicare to be accepted at most (if not all) outpatient dialysis facilities; he was advised that this process can take upwards of 60-90 days. We do appreciate case management assistance in this regard. As he will likely not have an accepting outpatient dialysis facility until he has both Medicaid and Medicare, he will likely have to remain inpatient until this can be arranged. He does live in [place] and likely would not meet requirements for transitional dialysis program because of this. His family was inquiring about transplant, and I do feel that he is a good candidate to be worked up, but again the issues is a payor source. Will await finalization of screening labs to give us insight on underlying etiology, but unfortunately we not be able to provide this answer for the patient. We will consult vascular surgery to see if they would be agreeable for AVF placement while in hospital as he has a [facility] PermCath. The patient was provided educational handouts regarding long-term dialysis, access, and diet (in Stateless) . Will tentatively keep the patient on MWF hemodialysis schedule with next HD 02/01. Medication should be adjusted for the patient's renal failure when indicated. Avoid gadolinium which is contraindicated. <Darlene Finnegan - Last Filed: 12/10/17 14:09> - Assessment (1) CKD (chronic kidney disease) stage V requiring chronic dialysis Code(s): N18.6 - End stage renal disease; Z99.2 - Dependence on renal dialysis Status: Chronic (2) Secondary hyperparathyroidism (of renal origin) Code(s): N25.81 - Secondary hyperparathyroidism of renal origin Status: Chronic (3) Anemia of renal disease Code(s): D63.1 - Anemia in chronic kidney disease Status: Acute (4) Hyperphosphatemia Code(s): E83.39 - Other disorders of phosphorus metabolism Status: Acute (5) Fever Code(s): R50.9 - Fever, unspecified Status: Acute - Attending Attestation The exam, history, and the medical decision-making described in the above note were completed with the assistance of the SOILA. I reviewed and agree with the findings presented. <Bruce Whitney - Last Filed: 12/11/17 16:26>
--- NOTE | 2017-12-10 12:02 | P.PNFP ---
Subjective Interval history: No changes. Results - Labs Result diagrams: 12/08/17 14:51 12/08/17 14:51 Physical Exam Vital signs: Vital Signs 12/09/17 16:00 12/09/17 20:00 12/10/17 00:11 Temperature 98.3 F 97.8 F 97.2 F L Pulse Rate 77 72 68 Respiratory Rate 17 17 17 Blood Pressure 115/66 122/57 L 119/57 L Pulse Oximetry 100 99 98 12/10/17 08:00 Temperature 97.8 F Pulse Rate 70 Respiratory Rate 18 Blood Pressure 117/65 Pulse Oximetry 99 Intake & Output 12/09/17 12/10/17 12/10/17 18:59 06:59 18:59 Intake Total 760 / 760 480 / 480 Balance 760 / 760 480 / 480 Weight 81 kg Intake: Oral 760 / 760 480 / 480 Other: # Voids 3 2 Date of Last Bowel Movement 12/08/17 # Bowel Movements 3 Narrative: GENERAL: Well-nourished, well-developed patient. Pleasant. Undergoing dialysis , in NAD. SKIN: Warm and dry. PermCath in the right side chest wall intact, no active bleeding, no signs of infection. CARDIOVASCULAR: Regular rate and rhythm without murmurs, gallops, or rubs. RESPIRATORY: Breath sounds equal and clear bilaterally. No accessory muscle use. EXTREMITIES: No cyanosis or edema. Site of AVF procedure on left arm clean, dry , and intact suturing. NEUROLOGICAL: Awake and alert. Motor and sensory grossly within normal limits. Normal speech. Assessment and Plan - Assessment (1) CKD (chronic kidney disease) stage V requiring chronic dialysis Code(s): N18.6 - End stage renal disease; Z99.2 - Dependence on renal dialysis Status: Chronic Plan: Dialysis MWF via [facility] Perm Cath until placement obtained. See dispo below S/p right upper extremity AV fistula creation on 11/26/2017 Nephrology following, renal us shows atrophy (2) Anemia of renal disease Code(s): D63.1 - Anemia in chronic kidney disease Status: Acute Plan: Venofer and Epogen with dialysis. (3) Hypertension Code(s): I10 - Essential (primary) hypertension Status: Chronic Plan: Amlodipine 5mg po daily. Clonidine 0.1mg PO PRN for Systolic >180 or Diastolic >110. (4) Secondary hyperparathyroidism (of renal origin) Code(s): N25.81 - Secondary hyperparathyroidism of renal origin Status: Chronic Plan: Continue Calcitriol 0.25mcg qday. (5) Hyperphosphatemia Code(s): E83.39 - Other disorders of phosphorus metabolism Status: Acute Plan: Continue PhosLo w/ meals. - Assessment and Plan Disposition: CM Consulted Update: CM contacted [facility] yesterday for outpatient care. Patient being reviewed for PASS TO PAY PROGRAM until he gets insurance coverage. Transitional dialysis orders pending nephrology signature. Will touch base w/ nephrology today to further understand situation. Emergency Medicaid has been applied for, but will also have to have Medicare to be accepted at most outpatient dialysis facilities; this process can take 60-90 days. He will likely have to remain inpatient until this can be arranged. Hospital Course: 27 year old male with recent discovered hypertension (within the last 6 months), recently diagnosed with chronic kidney disease while in [place] which now appears to be end-stage renal disease. Patient seen in [place] and started on dialysis. Some workup was done but he does not know what the etiology of kidney disease is. Patient is being managed by nephrology with plans for dialysis MWF. Patient's cause of kidney failure is still unknown, his elevated BP is likely a contributing factor. Kidney US showed small and atrophic kidneys with increased echogenicity characteristic of medical renal disease. Receiving hemodialysis via Permcath MWF. Vasc consulted for AVF placement. Getting DVT prophylaxis in dialysis.
[2017-12-10] MEDS: Epoetin Alfa Inj 4,000 UNIT/ML Vial IV.PUSH SCH (12:38)
[2017-12-10] MEDS: Heparin 10,000 UNITS/10 ML Vial (for IV use) OTHER PRN (12:39)
[2017-12-10] MEDS ORDERED: Heparin 10,000 UNITS/10 ML Vial (for IV use) OTHER PRN (12:45)
[2017-12-10] MEDS ORDERED: Acetaminophen 325 MG Tablet PO PRN (12:45)
[2017-12-10] MEDS ORDERED: Albumin Human 25% Inj 100 ML IV.SIG PRN (12:45)
[2017-12-10] MEDS ORDERED: Gelatin 12 MM/7 MM Topical Foam TOPICAL PRN (12:45)
[2017-12-10] MEDS ORDERED: Sod Chloride 0.9% Inj 1,000 ML IV.CONT PRN (12:45)
[2017-12-10] MEDS ORDERED: Sod Chloride 0.9% Inj 1,000 ML OTHER PRN ×2 (12:45)
[2017-12-11] MEDS: amLODIPine 5 MG Tablet PO SCH (09:08)
[2017-12-11] MEDS: Calcium Acetate 667 MG Capsule PO SCH ×3 (09:08→18:06)
[2017-12-11] MEDS: Calcitriol 0.25 MCG Capsule PO SCH (09:08)
[2017-12-11] MEDS: Senna/Docusate Sodium 8.6/50 MG Tablet PO SCH ×2 (09:09→21:06)
[2017-12-11] MEDS: Sodium Chloride 0.9% 2 ML Flush BID IV.FLUSH SCH ×2 (09:10→21:06)
--- NOTE | 2017-12-11 10:33 | P.PNFP ---
Subjective Interval history: Patient seen and examined this morning. He has no complaints at this time. Denies fever, chills, nausea, vomiting, abdominal pain, chest pain or shortness of breath. He had no acute events during dialysis yesterday. <Stacy Cunningham - 12/11/17 12:20> Results - Labs Result diagrams: 12/08/17 14:51 12/08/17 14:51 <Jatin Zepeda - 12/11/17 13:18> Physical Exam Vital signs: Vital Signs 12/10/17 16:51 12/10/17 18:02 12/10/17 20:31 Temperature 98.6 F 98.1 F Pulse Rate 93 H 93 H Respiratory Rate 17 16 Blood Pressure 114/62 113/64 Pulse Oximetry 100 99 99 12/11/17 00:00 12/11/17 08:00 12/11/17 09:10 Temperature 98.3 F 98.4 F Pulse Rate 92 H 81 Respiratory Rate 18 18 Blood Pressure 111/55 L 127/59 L Pulse Oximetry 100 99 99 12/11/17 12:00 Temperature 98.5 F Pulse Rate 72 Respiratory Rate 18 Blood Pressure 117/58 L Pulse Oximetry 99 Intake & Output 12/10/17 12/11/17 12/11/17 18:59 06:59 18:59 Intake Total 1800 / 1800 380 / 380 Output Total 1999 Balance -200 / -200 380 / 380 Weight 85.4 kg Intake: Oral 1800 / 1800 380 / 380 Output: Hemodialysis Amount 1999 Other: # Voids 1 3 Date of Last Bowel Movement 12/10/17 12/10/17 <Jatin Zepeda - 12/11/17 13:18> Vital Signs 12/10/17 16:51 12/10/17 18:02 12/10/17 20:31 Temperature 98.6 F 98.1 F Pulse Rate 93 H 93 H Respiratory Rate 17 16 Blood Pressure 114/62 113/64 Pulse Oximetry 100 99 99 12/11/17 00:00 12/11/17 08:00 Temperature 98.3 F 98.4 F Pulse Rate 92 H 81 Respiratory Rate 18 18 Blood Pressure 111/55 L 127/59 L Pulse Oximetry 100 99 Intake & Output 12/10/17 12/11/17 12/11/17 18:59 06:59 18:59 Intake Total 1800 / 1800 380 / 380 Output Total 1999 Balance -200 / -200 380 / 380 Weight 85.4 kg Intake: Oral 1800 / 1800 380 / 380 Output: Hemodialysis Amount 1999 Other: # Voids 1 3 Date of Last Bowel Movement 12/10/17 <Stacy Cunningham Karina - 12/11/17 10:33> Narrative: GENERAL: Well-nourished, well-developed patient. Pleasant. Undergoing dialysis , in NAD. SKIN: Warm and dry. PermCath in the right side chest wall intact, no active bleeding, no signs of infection. CARDIOVASCULAR: Regular rate and rhythm without murmurs, gallops, or rubs. RESPIRATORY: Breath sounds equal and clear bilaterally. No accessory muscle use. EXTREMITIES: No cyanosis or edema. Site of AVF procedure on left arm clean, dry , and intact suturing. NEUROLOGICAL: Awake and alert. Motor and sensory grossly within normal limits. Normal speech. <Stacy Cunningham Karina - 12/11/17 12:20> Assessment and Plan - Assessment (1) CKD (chronic kidney disease) stage V requiring chronic dialysis Code(s): N18.6 - End stage renal disease; Z99.2 - Dependence on renal dialysis Status: Chronic (2) Anemia of renal disease Code(s): D63.1 - Anemia in chronic kidney disease Status: Acute (3) Hypertension Code(s): I10 - Essential (primary) hypertension Status: Chronic (4) Secondary hyperparathyroidism (of renal origin) Code(s): N25.81 - Secondary hyperparathyroidism of renal origin Status: Chronic (5) Hyperphosphatemia Code(s): E83.39 - Other disorders of phosphorus metabolism Status: Acute <Jatin Zepeda - 12/11/17 13:18> (1) CKD (chronic kidney disease) stage V requiring chronic dialysis Code(s): N18.6 - End stage renal disease; Z99.2 - Dependence on renal dialysis Status: Chronic Plan: Dialysis MWF via [facility] Perm Cath until placement obtained. See dispo below S/p right upper extremity AV fistula creation on 11/26/2017 Nephrology following, renal us shows atrophy (2) Anemia of renal disease Code(s): D63.1 - Anemia in chronic kidney disease Status: Acute Plan: Venofer and Epogen with dialysis. (3) Hypertension Code(s): I10 - Essential (primary) hypertension Status: Chronic Plan: Amlodipine 5mg po daily. Clonidine 0.1mg PO PRN for Systolic >180 or Diastolic >110. (4) Secondary hyperparathyroidism (of renal origin) Code(s): N25.81 - Secondary hyperparathyroidism of renal origin Status: Chronic Plan: Continue Calcitriol 0.25mcg qday. (5) Hyperphosphatemia Code(s): E83.39 - Other disorders of phosphorus metabolism Status: Acute Plan: Continue PhosLo w/ meals. <Stacy Cunningham - 12/11/17 12:15> - Assessment and Plan Disposition: CM Consulted Update: CM contacted [facility] yesterday for outpatient care. Patient being reviewed for PASS TO PAY PROGRAM until he gets insurance coverage. Transitional dialysis orders pending nephrology signature. Will touch base w/ nephrology today to further understand situation. Emergency Medicaid has been applied for, but will also have to have Medicare to be accepted at most outpatient dialysis facilities; this process can take 60-90 days. He will likely have to remain inpatient until this can be arranged. Hospital Course: 27 year old male with recent discovered hypertension (within the last 6 months), recently diagnosed with chronic kidney disease while in [place] which now appears to be end-stage renal disease. Patient seen in [place] and started on dialysis. Some workup was done but he does not know what the etiology of kidney disease is. Patient is being managed by nephrology with plans for dialysis MWF. Patient's cause of kidney failure is still unknown, his elevated BP is likely a contributing factor. Kidney US showed small and atrophic kidneys with increased echogenicity characteristic of medical renal disease. Receiving hemodialysis via Permcath MWF. [facility] consulted for AVF placement. Getting DVT prophylaxis in dialysis. <Stacy Cunningham - 12/11/17 12:20> - Attending Attestation Pt. examined and case discussed with resident physicians. I have read the above note and agree with the assessment and plan as discussed with me. I was involved in all medical decision making for this patient. Jatin Zepeda MD <Jatin Zepeda - 12/11/17 13:18>
--- NOTE | 2017-12-11 16:39 | P.PNNP ---
Subjective Interval history: Patient lying in bed. Family by bedside. No verbal complaints. Physical Exam Vital signs: Vital Signs 12/10/17 16:51 12/10/17 18:02 12/10/17 20:31 Temperature 98.6 F 98.1 F Pulse Rate 93 H 93 H Respiratory Rate 17 16 Blood Pressure 114/62 113/64 Pulse Oximetry 100 99 99 12/11/17 00:00 12/11/17 08:00 12/11/17 09:10 Temperature 98.3 F 98.4 F Pulse Rate 92 H 81 Respiratory Rate 18 18 Blood Pressure 111/55 L 127/59 L Pulse Oximetry 100 99 99 12/11/17 12:00 12/11/17 16:17 Temperature 98.5 F 98.4 F Pulse Rate 72 88 Respiratory Rate 18 18 Blood Pressure 117/58 L 110/58 L Pulse Oximetry 99 99 Intake & Output 12/10/17 12/11/17 12/11/17 18:59 06:59 18:59 Intake Total 1800 / 1800 380 / 380 Output Total 1999 Balance -200 / -200 380 / 380 Weight 85.4 kg Intake: Oral 1800 / 1800 380 / 380 Output: Hemodialysis Amount 1999 Other: # Voids 1 3 Date of Last Bowel Movement 12/10/17 12/10/17 Narrative: GENERAL: Well-nourished, well-developed patient. Pleasant. in NAD. SKIN: Warm and dry. PermCath in the right side chest wall intact, no active bleeding, no signs of infection. CARDIOVASCULAR: Regular rate and rhythm without murmurs, gallops, or rubs. RESPIRATORY: Breath sounds equal and clear bilaterally. No accessory muscle use. EXTREMITIES: No cyanosis or edema. Site of AVF procedure on left arm clean, dry , and intact suturing. NEUROLOGICAL: Awake and alert. Assessment and Plan - Assessment (1) CKD (chronic kidney disease) stage V requiring chronic dialysis Code(s): N18.6 - End stage renal disease; Z99.2 - Dependence on renal dialysis Status: Chronic Plan: is talking to case management in regards to transitional dialysis and is not cleared for this program on our end until all details have been arranged in writing with a written agreement in Romanian with patient signature. He will also have to have transportation scheduled as he lives in [place]. Has been counselled that he will have a specific chair time and will be required to abide by the transitional guidelines as he will be dismissed from program if non-compliant. I discussed with the patient regarding my own criteria for compliance. I also requested that he see me in the office at least once a month. Failure to do so may also as well as other noncompliance with medical care will result in termination of the patient/physician relationship with 30 days to find another physician. He was also advised that I would provide care temporarily on the understanding that he would find a roll over loader in dialysis facility in his home area. I have also made the case hardener aware that I may be taking a leave of absence from this hospital end of year and if the patient is still in the transitional program at this institution another roll over loader will have to take over if the hospital so requires. Family/friend by bedside was kind enough to translate and the patient expressed understanding. Continue HD MWF. Medication should be adjusted for the patient's renal failure when indicated. Avoid gadolinium which is contraindicated. (2) Secondary hyperparathyroidism (of renal origin) Code(s): N25.81 - Secondary hyperparathyroidism of renal origin Status: Chronic Plan: Continue Rocaltrol (3) Anemia of renal disease Code(s): D63.1 - Anemia in chronic kidney disease Status: Acute Plan: Venofer and Epogen with HD. (4) Hyperphosphatemia Code(s): E83.39 - Other disorders of phosphorus metabolism Status: Acute Plan: Continue with PhosLo - Plan Patient presently has renal failure. Duration uncertain presently and etiology not entirely clear. Renal US reveals very atrophic kidneys measured at 7cm each with increased echogenicity indicative of chronic renal disease. Other work up at this point negative. Given his renal atrophy, it is doubtful that a renal biopsy would yield any reliable results and is not felt to be beneficial at this time as it would not change treatment course. As discussed with the patient and his family, it does appear that he is end- stage renal disease at this point in time and will require dialysis long-term. I am under the understanding that emergency Medicaid has been applied for, but will also have to have Medicare to be accepted at most (if not all) outpatient dialysis facilities; he was advised that this process can take upwards of 60-90 days. We do appreciate case management assistance in this regard. As he will likely not have an accepting outpatient dialysis facility until he has both Medicaid and Medicare, he will likely have to remain inpatient until this can be arranged. He does live in [place] and likely would not meet requirements for transitional dialysis program because of this. His family was inquiring about transplant, and I do feel that he is a good candidate to be worked up, but again the issues is a payor source. Will await finalization of screening labs to give us insight on underlying etiology, but unfortunately we not be able to provide this answer for the patient. We will consult vascular surgery to see if they would be agreeable for AVF placement while in hospital as he has a [facility] PermCath. The patient was provided educational handouts regarding long-term dialysis, access, and diet (in Romanian) . Will tentatively keep the patient on MWF hemodialysis schedule with next HD 02/01. Medication should be adjusted for the patient's renal failure when indicated. Avoid gadolinium which is contraindicated.
[2017-12-12] MEDS: Senna/Docusate Sodium 8.6/50 MG Tablet PO SCH ×3 (09:14→22:03)
[2017-12-12] MEDS: Calcitriol 0.25 MCG Capsule PO SCH (09:14)
[2017-12-12] MEDS: Calcium Acetate 667 MG Capsule PO SCH ×3 (09:14→17:56)
[2017-12-12] MEDS: amLODIPine 5 MG Tablet PO SCH (09:14)
[2017-12-12] MEDS: Sodium Chloride 0.9% 2 ML Flush BID IV.FLUSH SCH ×2 (09:16→22:02)
--- NOTE | 2017-12-12 09:37 | P.PNFP ---
Subjective Interval history: No new events. <SharriShirley N - 12/12/17 10:41> Results - Labs Result diagrams: 12/08/17 14:51 12/08/17 14:51 <Lakhwinder Stuart - 12/13/17 13:20> Physical Exam Vital signs: Vital Signs 12/12/17 16:00 12/12/17 20:00 12/13/17 00:31 Temperature 97.7 F 98.4 F 97.7 F Pulse Rate 73 83 78 Respiratory Rate 18 18 20 Blood Pressure 122/66 131/74 125/66 Pulse Oximetry 99 99 96 12/13/17 08:31 12/13/17 13:06 Temperature 97.7 F 98.5 F Pulse Rate 74 85 Respiratory Rate 18 17 Blood Pressure 113/60 115/63 Pulse Oximetry 99 99 Intake & Output 12/12/17 12/13/17 12/13/17 18:59 06:59 18:59 Intake Total 750 / 750 760 / 760 Output Total 1999 Balance 750 / 750 760 / 760 -1999 Weight 79 kg Intake: Oral 750 / 750 760 / 760 Output: Hemodialysis Amount 1999 Other: # Voids 6 2 Date of Last Bowel Movement 12/10/17 # Bowel Movements 1 <Lakhwinder Stuart - 12/13/17 13:20> Vital Signs 12/11/17 12:00 12/11/17 16:17 12/11/17 18:06 Temperature 98.5 F 98.4 F Pulse Rate 72 88 Respiratory Rate 18 18 Blood Pressure 117/58 L 110/58 L Pulse Oximetry 99 99 99 12/11/17 20:00 12/12/17 00:00 Temperature 98.4 F 98.0 F Pulse Rate 84 75 Respiratory Rate 18 18 Blood Pressure 121/59 L 136/63 Pulse Oximetry 99 99 Intake & Output 12/11/17 12/12/17 12/12/17 18:59 06:59 18:59 Intake Total 1200 / 1200 240 / 240 Balance 1200 / 1200 240 / 240 Weight 78.8 kg Intake: Oral 1200 / 1200 240 / 240 Other: # Voids 2 2 Date of Last Bowel Movement 12/10/17 <SharriPepeShirley N - 12/12/17 09:37> Narrative: GENERAL: Well-nourished, well-developed patient. Pleasant. in NAD. SKIN: Warm and dry. PermCath in the right side chest wall intact, no active bleeding, no signs of infection. CARDIOVASCULAR: Regular rate and rhythm without murmurs, gallops, or rubs. RESPIRATORY: Breath sounds equal and clear bilaterally. No accessory muscle use. EXTREMITIES: No cyanosis or edema. Site of AVF procedure on left arm clean, dry , and intact suturing. NEUROLOGICAL: Awake and alert. <SharriPepeShirley N - 12/12/17 10:41> Assessment and Plan - Assessment (1) CKD (chronic kidney disease) stage V requiring chronic dialysis Code(s): N18.6 - End stage renal disease; Z99.2 - Dependence on renal dialysis Status: Chronic Plan: Dialysis MWF via [facility] Perm Cath until placement obtained. See dispo below S/p right upper extremity AV fistula creation on 11/26/2017 Nephrology following, renal us shows atrophy Plan for weekly labs (CBC, CMP) - next due Dec 15 (2) Anemia of renal disease Code(s): D63.1 - Anemia in chronic kidney disease Status: Acute Plan: Venofer and Epogen with dialysis. (3) Hypertension Code(s): I10 - Essential (primary) hypertension Status: Chronic Plan: Amlodipine 5mg po daily. Clonidine 0.1mg PO PRN for Systolic >180 or Diastolic >110. (4) Secondary hyperparathyroidism (of renal origin) Code(s): N25.81 - Secondary hyperparathyroidism of renal origin Status: Chronic Plan: Continue Calcitriol 0.25mcg qday. (5) Hyperphosphatemia Code(s): E83.39 - Other disorders of phosphorus metabolism Status: Acute Plan: Continue PhosLo w/ meals. <Shirley Harrell N - 12/12/17 10:38> - Assessment and Plan See the residents documentation for details. I saw and evaluated the patient regarding the gonzáles portions of this evaluation and agree with the residents findings and plans as written. Parts of this note were created using [employer] voice recognition software program. While efforts were made to correct any mistakes made by this software, some mistakes, errors, and omissions may remain in the final note that were not caught when the note was originally created. Plan of care was discussed and agreed upon with the patient as specifically documented in the above note. An opportunity to ask questions with explanation was provided. Patient voiced understanding on all information reviewed and discussed. <Lakhwinder Stuart - 12/13/17 13:20> Disposition: CM Consulted Update: CM contacted [facility] yesterday for outpatient care. Patient being reviewed for PASS TO PAY PROGRAM until he gets insurance coverage. Transitional dialysis orders pending nephrology signature. Will touch base w/ nephrology today to further understand situation. Emergency Medicaid has been applied for, but will also have to have Medicare to be accepted at most outpatient dialysis facilities; this process can take 60-90 days. He will likely have to remain inpatient until this can be arranged. Hospital Course: 27 year old male with recent discovered hypertension (within the last 6 months), recently diagnosed with chronic kidney disease while in [place] which now appears to be end-stage renal disease. Patient seen in [place] and started on dialysis. Some workup was done but he does not know what the etiology of kidney disease is. Patient is being managed by nephrology with plans for dialysis MWF. Patient's cause of kidney failure is still unknown, his elevated BP is likely a contributing factor. Kidney US showed small and atrophic kidneys with increased echogenicity characteristic of medical renal disease. Receiving hemodialysis via Permcath MWF. Vasc consulted for AVF placement. Getting DVT prophylaxis in dialysis. <Shirley Harrell - 12/12/17 09:37>
[2017-12-13] MEDS: amLODIPine 5 MG Tablet PO SCH ×2 (08:33→08:35)
[2017-12-13] MEDS: Calcium Acetate 667 MG Capsule PO SCH ×3 (08:33→17:40)
[2017-12-13] MEDS: Senna/Docusate Sodium 8.6/50 MG Tablet PO SCH ×2 (08:33→21:30)
[2017-12-13] MEDS: Calcitriol 0.25 MCG Capsule PO SCH (08:33)
[2017-12-13] MEDS: Sodium Chloride 0.9% 2 ML Flush BID IV.FLUSH SCH ×2 (08:34→21:30)
--- NOTE | 2017-12-13 10:18 | P.PNNP ---
Subjective Interval history: Patient was seen during dialysis today. No verbal complaints. Physical Exam Vital signs: Vital Signs 12/12/17 12:00 12/12/17 16:00 12/12/17 20:00 Temperature 97.9 F 97.7 F 98.4 F Pulse Rate 77 73 83 Respiratory Rate 18 18 18 Blood Pressure 130/71 122/66 131/74 Pulse Oximetry 99 99 99 12/13/17 00:31 12/13/17 08:31 Temperature 97.7 F 97.7 F Pulse Rate 78 74 Respiratory Rate 20 18 Blood Pressure 125/66 113/60 Pulse Oximetry 96 99 Intake & Output 12/12/17 12/13/17 12/13/17 18:59 06:59 18:59 Intake Total 750 / 750 760 / 760 Balance 750 / 750 760 / 760 Weight 79 kg Intake: Oral 750 / 750 760 / 760 Other: # Voids 6 2 Date of Last Bowel Movement 12/10/17 # Bowel Movements 1 Assessment and Plan - Assessment (1) CKD (chronic kidney disease) stage V requiring chronic dialysis Code(s): N18.6 - End stage renal disease; Z99.2 - Dependence on renal dialysis Status: Chronic Plan: MD is talking to case management in regards to transitional dialysis and is not cleared for this program on our end until all details have been arranged in writing with a written agreement in Faroese with patient signature. He will also have to have transportation scheduled as he lives in [place]. Has been counselled that he will have a specific chair time and will be required to abide by the transitional guidelines as he will be dismissed from program if non-compliant. I discussed with the patient regarding my own criteria for compliance. I also requested that he see me in the office at least once a month. Failure to do so may also as well as other noncompliance with medical care will result in termination of the patient/physician relationship with 30 days to find another physician. He was also advised that I would provide care temporarily on the understanding that he would find a district extension service agent in dialysis facility in his home area. I have also made the continuous pillowcase cutter aware that I may be taking a leave of absence from this hospital end of year and if the patient is still in the transitional program at this institution another district extension service agent will have to take over if the hospital so requires. Family/friend by bedside was kind enough to translate and the patient expressed understanding. Continue HD MWF. Medication should be adjusted for the patient's renal failure when indicated. Avoid gadolinium which is contraindicated. (2) Secondary hyperparathyroidism (of renal origin) Code(s): N25.81 - Secondary hyperparathyroidism of renal origin Status: Chronic Plan: Continue Rocaltrol (3) Anemia of renal disease Code(s): D63.1 - Anemia in chronic kidney disease Status: Acute Plan: Venofer and Epogen with HD. (4) Hyperphosphatemia Code(s): E83.39 - Other disorders of phosphorus metabolism Status: Acute Plan: Continue with PhosLo - Plan Patient presently has renal failure. Duration uncertain presently and etiology not entirely clear. Renal US reveals very atrophic kidneys measured at 7cm each with increased echogenicity indicative of chronic renal disease. Other work up at this point negative. Given his renal atrophy, it is doubtful that a renal biopsy would yield any reliable results and is not felt to be beneficial at this time as it would not change treatment course. As discussed with the patient and his family, it does appear that he is end- stage renal disease at this point in time and will require dialysis long-term. I am under the understanding that emergency Medicaid has been applied for, but will also have to have Medicare to be accepted at most (if not all) outpatient dialysis facilities; he was advised that this process can take upwards of 60-90 days. We do appreciate case management assistance in this regard. As he will likely not have an accepting outpatient dialysis facility until he has both Medicaid and Medicare, he will likely have to remain inpatient until this can be arranged. He does live in [place] and likely would not meet requirements for transitional dialysis program because of this. His family was inquiring about transplant, and I do feel that he is a good candidate to be worked up, but again the issues is a payor source. Will await finalization of screening labs to give us insight on underlying etiology, but unfortunately we not be able to provide this answer for the patient. We will consult vascular surgery to see if they would be agreeable for AVF placement while in hospital as he has a [facility] PermCath. The patient was provided educational handouts regarding long-term dialysis, access, and diet (in Faroese) . Will tentatively keep the patient on MWF hemodialysis schedule with next HD 02/01. Medication should be adjusted for the patient's renal failure when indicated. Avoid gadolinium which is contraindicated.
[2017-12-13] MEDS: Heparin 10,000 UNITS/10 ML Vial (for IV use) OTHER PRN (11:26)
[2017-12-13] MEDS: Epoetin Alfa Inj 4,000 UNIT/ML Vial IV.PUSH SCH (11:29)
--- NOTE | 2017-12-13 14:18 | P.PNFP ---
Subjective Interval history: Patient seen and examined while in the dialysis suite. He has no complaints at this time. Denies chest pain, shortness of breath, leg swelling, back pain or pain at the perm-cath site. <LindagerardoStacy - 12/13/17 14:18> Results - Labs Result diagrams: 12/08/17 14:51 12/08/17 14:51 <Lakhwinder Stuart - 12/13/17 14:34> Physical Exam Vital signs: Vital Signs 12/12/17 16:00 12/12/17 20:00 12/13/17 00:31 Temperature 97.7 F 98.4 F 97.7 F Pulse Rate 73 83 78 Respiratory Rate 18 18 20 Blood Pressure 122/66 131/74 125/66 Pulse Oximetry 99 99 96 12/13/17 08:31 12/13/17 13:06 Temperature 97.7 F 98.5 F Pulse Rate 74 85 Respiratory Rate 18 17 Blood Pressure 113/60 115/63 Pulse Oximetry 99 99 Intake & Output 12/12/17 12/13/17 12/13/17 18:59 06:59 18:59 Intake Total 750 / 750 760 / 760 Output Total 1999 Balance 750 / 750 760 / 760 -1999 Weight 79 kg Intake: Oral 750 / 750 760 / 760 Output: Hemodialysis Amount 1999 Other: # Voids 6 2 Date of Last Bowel Movement 12/10/17 # Bowel Movements 1 <Lakhwinder Stuart - 12/13/17 14:34> Vital Signs 12/12/17 16:00 12/12/17 20:00 12/13/17 00:31 Temperature 97.7 F 98.4 F 97.7 F Pulse Rate 73 83 78 Respiratory Rate 18 18 20 Blood Pressure 122/66 131/74 125/66 Pulse Oximetry 99 99 96 12/13/17 08:31 12/13/17 13:06 Temperature 97.7 F 98.5 F Pulse Rate 74 85 Respiratory Rate 18 17 Blood Pressure 113/60 115/63 Pulse Oximetry 99 99 Intake & Output 12/12/17 12/13/17 12/13/17 18:59 06:59 18:59 Intake Total 750 / 750 760 / 760 Output Total 1999 Balance 750 / 750 760 / 760 -1999 Weight 79 kg Intake: Oral 750 / 750 760 / 760 Output: Hemodialysis Amount 1999 Other: # Voids 6 2 Date of Last Bowel Movement 12/10/17 # Bowel Movements 1 <Stacy Cunningham - 12/13/17 14:18> Narrative: GENERAL: Well-nourished, well-developed patient. Pleasant. in NAD. SKIN: Warm and dry. PermCath in the right side chest wall intact, no active bleeding, no signs of infection. CARDIOVASCULAR: Regular rate and rhythm without murmurs, gallops, or rubs. RESPIRATORY: Breath sounds equal and clear bilaterally. No accessory muscle use. EXTREMITIES: No cyanosis or edema. Site of AVF procedure on left arm clean, dry , and intact suturing. NEUROLOGICAL: Awake and alert. <Stacy Cunningham - 12/13/17 14:18> Assessment and Plan - Assessment (1) CKD (chronic kidney disease) stage V requiring chronic dialysis Code(s): N18.6 - End stage renal disease; Z99.2 - Dependence on renal dialysis Status: Chronic Plan: Dialysis MWF via [facility] Perm Cath until placement obtained. See dispo below S/p right upper extremity AV fistula creation on 11/26/2017 Nephrology following, renal us shows atrophy Plan for weekly labs (CBC, CMP) - next due Dec 15 (2) Anemia of renal disease Code(s): D63.1 - Anemia in chronic kidney disease Status: Acute Plan: Venofer and Epogen with dialysis. (3) Hypertension Code(s): I10 - Essential (primary) hypertension Status: Chronic Plan: Amlodipine 5mg po daily. Clonidine 0.1mg PO PRN for Systolic >180 or Diastolic >110. (4) Secondary hyperparathyroidism (of renal origin) Code(s): N25.81 - Secondary hyperparathyroidism of renal origin Status: Chronic Plan: Continue Calcitriol 0.25mcg qday. (5) Hyperphosphatemia Code(s): E83.39 - Other disorders of phosphorus metabolism Status: Acute Plan: Continue PhosLo w/ meals. <Stacy Cunningham - 12/13/17 14:15> - Assessment and Plan See the residents documentation for details. I saw and evaluated the patient regarding the gonzáles portions of this evaluation and agree with the residents findings and plans as written. Parts of this note were created using [employer] voice recognition software program. While efforts were made to correct any mistakes made by this software, some mistakes, errors, and omissions may remain in the final note that were not caught when the note was originally created. Plan of care was discussed and agreed upon with the patient as specifically documented in the above note. An opportunity to ask questions with explanation was provided. Patient voiced understanding on all information reviewed and discussed. <Lakhwinder Stuart - 12/13/17 14:34> Emergency Medicaid has been applied for, but will also have to have Medicare to be accepted at most outpatient dialysis facilities; this process can take 60-90 days. He will likely have to remain inpatient until this can be arranged. <Stacy Cunningham - 12/13/17 14:18>
[2017-12-14] MEDS: Calcitriol 0.25 MCG Capsule PO SCH (08:01)
[2017-12-14] MEDS: Sodium Chloride 0.9% 2 ML Flush BID IV.FLUSH SCH ×2 (08:01→21:39)
[2017-12-14] MEDS: Senna/Docusate Sodium 8.6/50 MG Tablet PO SCH ×2 (08:01→21:39)
[2017-12-14] MEDS: amLODIPine 5 MG Tablet PO SCH (08:01)
[2017-12-14] MEDS: Calcium Acetate 667 MG Capsule PO SCH ×3 (08:01→18:35)
--- NOTE | 2017-12-14 11:21 | P.PNFP ---
Subjective Interval history: Patient seen and examined this morning. He has no complaints at this time. Denies nausea, vomiting, chest pain, shortness of breath, abdominal pain or leg pain. <Stacy Cunningham - 12/14/17 11:22> Results - Labs Result diagrams: 12/15/17 07:19 12/15/17 07:19 <Lakhwinder Stuart - 12/15/17 11:32> Abnormal lab results 12/15/17 12/15/17 Range/Units 07:19 07:19 RBC 2.99 L (4.50-5.90) mil/mm3 Hgb 10.4 L (13.0-17.0) gm/dL Hct 28.8 L (39.0-51.0) % MCH 34.8 H (27.0-34.0) pg MCHC 36.1 H (32.0-36.0) % BUN 83 H (7-18) mg/dL Creatinine 13.79 H* (0.60-1.30) mg/dL Estimated GFR 4 L (>89) mL/min Short CBC 12/15/17 Range/Units 07:19 WBC 5.9 (4.0-11.0) th/mm3 Hgb 10.4 L (13.0-17.0) gm/dL Hct 28.8 L (39.0-51.0) % Plt Count 212 (150-450) th/mm3 BMP 12/15/17 07:19 Sodium 141 Potassium 4.9 Chloride 99 Carbon Dioxide 27.2 BUN 83 H Creatinine 13.79 H* Calcium 8.6 <Lakhwinder Stuart - 12/15/17 11:32> Physical Exam Vital signs: Vital Signs 12/14/17 12:00 12/14/17 16:00 12/14/17 20:00 Temperature 97.9 F 98.1 F 98.3 F Pulse Rate 83 86 82 Respiratory Rate 17 16 18 Blood Pressure 120/66 113/64 110/62 Pulse Oximetry 99 94 L 97 12/15/17 00:32 12/15/17 08:00 Temperature 97.9 F 97.8 F Pulse Rate 88 78 Respiratory Rate 17 17 Blood Pressure 126/70 110/58 L Pulse Oximetry 100 98 Intake & Output 12/14/17 12/15/17 12/15/17 18:59 06:59 18:59 Intake Total 720 / 720 Balance 720 / 720 Weight 78.4 kg Intake: Oral 720 / 720 Other: # Voids 1 <Lakhwinder Stuart - 12/15/17 11:32> Vital Signs 12/13/17 13:06 12/13/17 16:53 12/13/17 20:00 Temperature 98.5 F 98.0 F 98.7 F Pulse Rate 85 72 82 Respiratory Rate 17 18 18 Blood Pressure 115/63 116/59 L 109/59 L Pulse Oximetry 99 100 99 12/14/17 00:00 Temperature 98.4 F Pulse Rate 78 Respiratory Rate 18 Blood Pressure 111/59 L Pulse Oximetry 100 Intake & Output 12/13/17 12/14/17 12/14/17 18:59 06:59 18:59 Intake Total 1800 / 1800 Output Total 1999 Balance -200 / -200 Weight 78.4 kg Intake: Oral 1800 / 1800 Output: Hemodialysis Amount 1999 Other: # Voids 1 1 Date of Last Bowel Movement 12/13/17 Weight On Admission 79 kg <Stacy Cunningham - 12/14/17 11:21> Narrative: GENERAL: Well-nourished, well-developed patient. Pleasant. in NAD. SKIN: Warm and dry. PermCath in the right side chest wall intact, no active bleeding, no signs of infection. CARDIOVASCULAR: Regular rate and rhythm without murmurs, gallops, or rubs. RESPIRATORY: Breath sounds equal and clear bilaterally. No accessory muscle use. EXTREMITIES: No cyanosis or edema. Site of AVF procedure on left arm clean, dry , and intact suturing. NEUROLOGICAL: Awake and alert. <Stacy Cunningham - 12/14/17 11:50> Assessment and Plan - Assessment (1) CKD (chronic kidney disease) stage V requiring chronic dialysis Code(s): N18.6 - End stage renal disease; Z99.2 - Dependence on renal dialysis Status: Chronic Plan: Dialysis MWF via [facility] Perm Cath until placement obtained. See dispo below S/p right upper extremity AV fistula creation on 11/26/2017 Nephrology following, renal us shows atrophy Plan for weekly labs (CBC, CMP) - next due Dec 15 (2) Anemia of renal disease Code(s): D63.1 - Anemia in chronic kidney disease Status: Acute Plan: Venofer and Epogen with dialysis. (3) Hypertension Code(s): I10 - Essential (primary) hypertension Status: Chronic Plan: Amlodipine 5mg po daily. Clonidine 0.1mg PO PRN for Systolic >180 or Diastolic >110. (4) Secondary hyperparathyroidism (of renal origin) Code(s): N25.81 - Secondary hyperparathyroidism of renal origin Status: Chronic Plan: Continue Calcitriol 0.25mcg qday. (5) Hyperphosphatemia Code(s): E83.39 - Other disorders of phosphorus metabolism Status: Acute Plan: Continue PhosLo w/ meals. <Stacy Cunningham - 12/14/17 11:50> - Attending Attestation See the residents documentation for details. I saw and evaluated the patient regarding the gonzáles portions of this evaluation and agree with the residents findings and plans as written. Parts of this note were created using [employer] voice recognition software program. While efforts were made to correct any mistakes made by this software, some mistakes, errors, and omissions may remain in the final note that were not caught when the note was originally created. Plan of care was discussed and agreed upon with the patient as specifically documented in the above note. An opportunity to ask questions with explanation was provided. Patient voiced understanding on all information reviewed and discussed. <Lakhwinder Stuart - 12/15/17 11:32>
[2017-12-15 08:01] LABS: Hematocrit 28.8 % (39.0-51.0); Hemoglobin 10.4 gm/dL (13.0-17.0); Mean Corpuscular Hemoglobin 34.8 pg (27.0-34.0); Mean Corpuscular Volume 96.4 fL (80.0-100.0); Mean Platelet Volume 7.5 fL (7.0-11.0); Platelet Count 212 th/mm3 (150-450); Red Blood Count 2.99 mil/mm3 (4.50-5.90); Red Cell Distribution Width 14.7 % (11.6-17.2); White Blood Count 5.9 th/mm3 (4.0-11.0)
[2017-12-15 08:08] LABS: Mean Corpuscular HGB Conc 36.1 % (32.0-36.0)
[2017-12-15 08:14] LABS: Calcium 8.6 mg/dL (8.5-10.1); Carbon Dioxide 27.2 meq/L (21.0-32.0); Potassium 4.9 meq/L (3.5-5.1)
--- NOTE | 2017-12-15 08:46 | P.PNFP ---
Subjective Interval history: Patient seen and examined this morning prior to dialysis today. He has no complaints at this time. Denies fever, chills, chest pain, shortness of breath or leg pain. Results - Labs Result diagrams: 12/15/17 07:19 12/15/17 07:19 Abnormal lab results 12/15/17 12/15/17 Range/Units 07:19 07:19 RBC 2.99 L (4.50-5.90) mil/mm3 Hgb 10.4 L (13.0-17.0) gm/dL Hct 28.8 L (39.0-51.0) % MCH 34.8 H (27.0-34.0) pg MCHC 36.1 H (32.0-36.0) % BUN 83 H (7-18) mg/dL Creatinine 13.79 H* (0.60-1.30) mg/dL Estimated GFR 4 L (>89) mL/min Short CBC 12/15/17 Range/Units 07:19 WBC 5.9 (4.0-11.0) th/mm3 Hgb 10.4 L (13.0-17.0) gm/dL Hct 28.8 L (39.0-51.0) % Plt Count 212 (150-450) th/mm3 BMP 12/15/17 07:19 Sodium 141 Potassium 4.9 Chloride 99 Carbon Dioxide 27.2 BUN 83 H Creatinine 13.79 H* Calcium 8.6 Physical Exam Vital signs: Vital Signs 12/14/17 12:00 12/14/17 16:00 12/14/17 20:00 Temperature 97.9 F 98.1 F 98.3 F Pulse Rate 83 86 82 Respiratory Rate 17 16 18 Blood Pressure 120/66 113/64 110/62 Pulse Oximetry 99 94 L 97 12/15/17 00:32 Temperature 97.9 F Pulse Rate 88 Respiratory Rate 17 Blood Pressure 126/70 Pulse Oximetry 100 Intake & Output 12/14/17 12/15/17 12/15/17 18:59 06:59 18:59 Intake Total 720 / 720 Balance 720 / 720 Weight 78.4 kg Intake: Oral 720 / 720 Other: # Voids 1 Narrative: GENERAL: Well-nourished, well-developed patient. Pleasant. in NAD. SKIN: Warm and dry. PermCath in the right side chest wall intact, no active bleeding, no signs of infection. CARDIOVASCULAR: Regular rate and rhythm without murmurs, gallops, or rubs. RESPIRATORY: Breath sounds equal and clear bilaterally. No accessory muscle use. EXTREMITIES: No cyanosis or edema. Site of AVF procedure on left arm clean, dry , and intact suturing. NEUROLOGICAL: Awake and alert. Assessment and Plan - Assessment (1) CKD (chronic kidney disease) stage V requiring chronic dialysis Code(s): N18.6 - End stage renal disease; Z99.2 - Dependence on renal dialysis Status: Chronic Plan: Dialysis MWF via [facility] Perm Cath until placement obtained. See dispo below S/p right upper extremity AV fistula creation on 11/26/2017 Nephrology following, renal us shows atrophy Plan for weekly labs (CBC, CMP) - next due Dec 15 (2) Anemia of renal disease Code(s): D63.1 - Anemia in chronic kidney disease Status: Acute Plan: Venofer and Epogen with dialysis. (3) Hypertension Code(s): I10 - Essential (primary) hypertension Status: Chronic Plan: Amlodipine 5mg po daily. Clonidine 0.1mg PO PRN for Systolic >180 or Diastolic >110. (4) Secondary hyperparathyroidism (of renal origin) Code(s): N25.81 - Secondary hyperparathyroidism of renal origin Status: Chronic Plan: Continue Calcitriol 0.25mcg qday. (5) Hyperphosphatemia Code(s): E83.39 - Other disorders of phosphorus metabolism Status: Acute Plan: Continue PhosLo w/ meals. - Assessment and Plan See the residents documentation for details. I saw and evaluated the patient regarding the gonzáles portions of this evaluation and agree with the residents findings and plans as written. Parts of this note were created using [employer] voice recognition software program. While efforts were made to correct any mistakes made by this software, some mistakes, errors, and omissions may remain in the final note that were not caught when the note was originally created. Plan of care was discussed and agreed upon with the patient as specifically documented in the above note. An opportunity to ask questions with explanation was provided. Patient voiced understanding on all information reviewed and discussed.
[2017-12-15] MEDS: Sodium Chloride 0.9% 2 ML Flush BID IV.FLUSH SCH ×2 (09:56→20:14)
[2017-12-15] MEDS: Calcium Acetate 667 MG Capsule PO SCH ×3 (11:59→17:06)
[2017-12-15] MEDS: Senna/Docusate Sodium 8.6/50 MG Tablet PO SCH ×2 (11:59→20:11)
[2017-12-15] MEDS: Calcitriol 0.25 MCG Capsule PO SCH (11:59)
[2017-12-15] MEDS: Heparin 10,000 UNITS/10 ML Vial (for IV use) OTHER PRN (16:00)
[2017-12-15] MEDS: Epoetin Alfa Inj 4,000 UNIT/ML Vial IV.PUSH SCH (16:00)
[2017-12-15] MEDS: amLODIPine 5 MG Tablet PO SCH (17:05)
--- NOTE | 2017-12-16 08:19 | P.PNFP ---
Subjective Interval history: Patient seen and examined this morning. He has no complaints at this time. Denies chest pain, shortness of breath, leg pain or swelling, or issues with his AVF surgical site or PermCath site. <Stacy Cunningham - 12/16/17 08:19> Results - Labs Result diagrams: 12/15/17 07:19 12/15/17 07:19 <Lakhwinder Stuart - 12/16/17 09:50> Abnormal lab results 12/15/17 Range/Units 07:19 BUN 83 H (7-18) mg/dL Creatinine 13.79 H* (0.60-1.30) mg/dL Estimated GFR 4 L (>89) mL/min BMP 12/15/17 07:19 Sodium 141 Potassium 4.9 Chloride 99 Carbon Dioxide 27.2 BUN 83 H Creatinine 13.79 H* Calcium 8.6 <Stacy Cunningham - 12/16/17 08:19> Physical Exam Vital signs: Vital Signs 12/15/17 12:00 12/15/17 20:00 12/16/17 00:00 Temperature 97.6 F 98.4 F 97.8 F Pulse Rate 78 80 64 Respiratory Rate 17 18 18 Blood Pressure 137/67 112/57 L 117/60 Pulse Oximetry 99 98 98 12/16/17 08:00 Temperature 98.2 F Pulse Rate 69 Respiratory Rate 17 Blood Pressure 109/60 Pulse Oximetry 100 Intake & Output 12/15/17 12/16/17 12/16/17 18:59 06:59 18:59 Output Total 1500 / 1500 Balance -1500 / -1500 Weight 78.2 kg Output: Hemodialysis Amount 1500 / 1500 <Lakhwinder Stuart - 12/16/17 09:50> Vital Signs 12/15/17 12:00 12/15/17 20:00 12/16/17 00:00 Temperature 97.6 F 98.4 F 97.8 F Pulse Rate 78 80 64 Respiratory Rate 17 18 18 Blood Pressure 137/67 112/57 L 117/60 Pulse Oximetry 99 98 98 12/16/17 08:00 Temperature 98.2 F Pulse Rate 69 Respiratory Rate 17 Blood Pressure 109/60 Pulse Oximetry 100 Intake & Output 12/15/17 12/16/17 12/16/17 18:59 06:59 18:59 Output Total 1500 / 1500 Balance -1500 / -1500 Weight 78.2 kg Output: Hemodialysis Amount 1500 / 1500 <Stacy Cunningham - 12/16/17 08:19> Narrative: GENERAL: Well-nourished, well-developed patient. Pleasant. in NAD. SKIN: Warm and dry. PermCath in the right side chest wall intact, no active bleeding, no signs of infection. CARDIOVASCULAR: Regular rate and rhythm without murmurs, gallops, or rubs. RESPIRATORY: Breath sounds equal and clear bilaterally. No accessory muscle use. EXTREMITIES: No cyanosis or edema. Site of AVF procedure on left arm clean, dry , and intact suturing. NEUROLOGICAL: Awake and alert. <Stacy Cunningham - 12/16/17 08:19> Assessment and Plan - Assessment (1) CKD (chronic kidney disease) stage V requiring chronic dialysis Code(s): N18.6 - End stage renal disease; Z99.2 - Dependence on renal dialysis Status: Chronic Plan: Dialysis MWF via [facility] Perm Cath until placement obtained. See dispo below S/p right upper extremity AV fistula creation on 11/26/2017 Nephrology following, renal us shows atrophy Plan for weekly labs (CBC, CMP), next due 12/22 (2) Anemia of renal disease Code(s): D63.1 - Anemia in chronic kidney disease Status: Acute Plan: Venofer and Epogen with dialysis. (3) Hypertension Code(s): I10 - Essential (primary) hypertension Status: Chronic Plan: Amlodipine 5mg po daily. Clonidine 0.1mg PO PRN for Systolic >180 or Diastolic >110. (4) Secondary hyperparathyroidism (of renal origin) Code(s): N25.81 - Secondary hyperparathyroidism of renal origin Status: Chronic Plan: Continue Calcitriol 0.25mcg qday. (5) Hyperphosphatemia Code(s): E83.39 - Other disorders of phosphorus metabolism Status: Acute Plan: Continue PhosLo w/ meals. <Stacy Cunningham - 12/16/17 08:19> - Assessment and Plan Disposition: CM on board. W/CM assistance, Emergency Medicaid has been applied for, but will also have to have Medicare to be accepted at most outpatient dialysis facilities ; this process can take 60-90 days. Therefore, does not meet requirements for transitional dialysis program until insurance is acceptable. He will likely have to remain inpatient until this can be arranged. Hospital Course: 27 year old male with recent discovered hypertension (within the last 6 months), recently diagnosed with chronic kidney disease while in [place] which now appears to be end-stage renal disease. Patient seen in [place] and started on dialysis. Some workup was done but he does not know what the etiology of kidney disease is. Patient is being managed by nephrology with plans for dialysis MWF. Patient's cause of kidney failure is still unknown, his elevated BP is likely a contributing factor. Kidney US showed small and atrophic kidneys with increased echogenicity characteristic of medical renal disease. Receiving hemodialysis via Permcath MWF. Vasc consulted for AVF placement, first stage completed on 11/26/17. Awaiting second stage of AVF creation. Getting DVT prophylaxis in dialysis. <Stacy Cunningham - 12/16/17 08:19> - Attending Attestation See the residents documentation for details. I saw and evaluated the patient regarding the gonzáles portions of this evaluation and agree with the residents findings and plans as written. Parts of this note were created using [employer] voice recognition software program. While efforts were made to correct any mistakes made by this software, some mistakes, errors, and omissions may remain in the final note that were not caught when the note was originally created. Plan of care was discussed and agreed upon with the patient as specifically documented in the above note. An opportunity to ask questions with explanation was provided. Patient voiced understanding on all information reviewed and discussed. <Lakhwinder Stuart - 12/16/17 09:50>
[2017-12-16] MEDS: Senna/Docusate Sodium 8.6/50 MG Tablet PO SCH ×2 (08:41→21:57)
[2017-12-16] MEDS: Sodium Chloride 0.9% 2 ML Flush BID IV.FLUSH SCH ×2 (08:41→21:57)
[2017-12-16] MEDS: Calcitriol 0.25 MCG Capsule PO SCH (08:41)
[2017-12-16] MEDS: Calcium Acetate 667 MG Capsule PO SCH ×3 (08:41→17:29)
[2017-12-16] MEDS: amLODIPine 5 MG Tablet PO SCH (08:41)
[2017-12-16] MEDS ORDERED: Carboxymethylcellulose 0.5% Opth Drops 15 ML Bottle EACH EYE PRN (13:11)
--- NOTE | 2017-12-17 09:54 | P.PNNP ---
Subjective Interval history: Patient was seen during dialysis. Spoke to him via the translation services utilized by the hospital. Patient had no verbal complaints. Physical Exam Vital signs: Vital Signs 12/16/17 12:00 12/16/17 20:00 12/17/17 00:09 Temperature 98.1 F 98.3 F 97.9 F Pulse Rate 83 82 80 Respiratory Rate 19 20 16 Blood Pressure 121/73 144/76 H 123/68 Pulse Oximetry 100 99 100 Intake & Output 12/16/17 12/17/17 12/17/17 18:59 06:59 18:59 Intake Total 850 / 850 720 / 720 Balance 850 / 850 720 / 720 Weight 79.6 kg Intake: Oral 850 / 850 720 / 720 Other: # Voids 6 Date of Last Bowel Movement 12/13/17 12/16/17 # Bowel Movements 1 1 Assessment and Plan - Assessment (1) CKD (chronic kidney disease) stage V requiring chronic dialysis Code(s): N18.6 - End stage renal disease; Z99.2 - Dependence on renal dialysis Status: Chronic Plan: I was contacted by the [employer] regarding patient's current status. I will be planning to take a leave of absence next month and therefore not willing to take on the responsibility of outpatient care via the transitional program as I do not believe I can provide nephrology services via that program if I do not have active privileges at this institution after a leave of absence. I will have to defer to hospital regarding what solution is available for the current situation. Ideally a wage adjuster practicing within the patient's geographical residence would be the ideal physician to take over his outpatient nephrology care if this could be arranged. Otherwise patient appears to be clinically stable and tolerating dialysis well. Await maturity of his dialysis fistula with subsequent conversion of access from hemodialysis PermCath to AV dialysis fistula. Continue HD MWF. Medication should be adjusted for the patient's renal failure when indicated. Avoid gadolinium which is contraindicated. (2) Secondary hyperparathyroidism (of renal origin) Code(s): N25.81 - Secondary hyperparathyroidism of renal origin Status: Chronic Plan: Continue Rocaltrol (3) Anemia of renal disease Code(s): D63.1 - Anemia in chronic kidney disease Status: Acute Plan: Venofer and Epogen with HD. (4) Hyperphosphatemia Code(s): E83.39 - Other disorders of phosphorus metabolism Status: Acute Plan: Continue with PhosLo - Plan Patient presently has renal failure. Duration uncertain presently and etiology not entirely clear. Renal US reveals very atrophic kidneys measured at 7cm each with increased echogenicity indicative of chronic renal disease. Other work up at this point negative. Given his renal atrophy, it is doubtful that a renal biopsy would yield any reliable results and is not felt to be beneficial at this time as it would not change treatment course. As discussed with the patient and his family, it does appear that he is end- stage renal disease at this point in time and will require dialysis long-term. I am under the understanding that emergency Medicaid has been applied for, but will also have to have Medicare to be accepted at most (if not all) outpatient dialysis facilities; he was advised that this process can take upwards of 60-90 days. We do appreciate case management assistance in this regard. As he will likely not have an accepting outpatient dialysis facility until he has both Medicaid and Medicare, he will likely have to remain inpatient until this can be arranged. He does live in [place] and likely would not meet requirements for transitional dialysis program because of this. His family was inquiring about transplant, and I do feel that he is a good candidate to be worked up, but again the issues is a payor source. Will await finalization of screening labs to give us insight on underlying etiology, but unfortunately we not be able to provide this answer for the patient. We will consult vascular surgery to see if they would be agreeable for AVF placement while in hospital as he has a [facility] PermCath. The patient was provided educational handouts regarding long-term dialysis, access, and diet (in Azeri) . Will tentatively keep the patient on MWF hemodialysis schedule with next HD 02/01. Medication should be adjusted for the patient's renal failure when indicated. Avoid gadolinium which is contraindicated.
[2017-12-17] MEDS: Epoetin Alfa Inj 4,000 UNIT/ML Vial IV.PUSH SCH (12:17)
[2017-12-17] MEDS: Heparin 10,000 UNITS/10 ML Vial (for IV use) OTHER PRN (12:18)
--- NOTE | 2017-12-17 13:23 | P.PNFP ---
Subjective Interval history: No changes. <Shirley Harrell - 12/17/17 13:23> Results - Labs Result diagrams: 12/15/17 07:19 12/15/17 07:19 <Lakhwinder Stuart - 12/17/17 14:09> Physical Exam Vital signs: Vital Signs 12/16/17 20:00 12/17/17 00:09 12/17/17 08:00 Temperature 98.3 F 97.9 F 98.0 F Pulse Rate 82 80 78 Respiratory Rate 20 16 17 Blood Pressure 144/76 H 123/68 113/59 L Pulse Oximetry 99 100 99 Intake & Output 12/16/17 12/17/17 12/17/17 18:59 06:59 18:59 Intake Total 850 / 850 720 / 720 Output Total 1999 Balance 850 / 850 720 / 720 -1999 Weight 79.6 kg Intake: Oral 850 / 850 720 / 720 Output: Hemodialysis Amount 1999 Other: # Voids 6 Date of Last Bowel Movement 12/13/17 12/16/17 # Bowel Movements 1 1 <Lakhwinder Stuart - 12/17/17 14:09> Vital Signs 12/16/17 20:00 12/17/17 00:09 Temperature 98.3 F 97.9 F Pulse Rate 82 80 Respiratory Rate 20 16 Blood Pressure 144/76 H 123/68 Pulse Oximetry 99 100 Intake & Output 12/16/17 12/17/17 12/17/17 18:59 06:59 18:59 Intake Total 850 / 850 720 / 720 Output Total 1999 Balance 850 / 850 720 / 720 -1999 Weight 79.6 kg Intake: Oral 850 / 850 720 / 720 Output: Hemodialysis Amount 1999 Other: # Voids 6 Date of Last Bowel Movement 12/13/17 12/16/17 # Bowel Movements 1 1 <Shirley Harrell - 12/17/17 13:23> Narrative: GENERAL: Pleasant. in NAD. SKIN: Warm and dry. PermCath in the right side chest wall intact, no active bleeding, no signs of infection. CARDIOVASCULAR: Regular rate. RESPIRATORY: No accessory muscle use. EXTREMITIES: No cyanosis or edema. Site of AVF procedure on left arm clean, dry , and intact suturing. NEUROLOGICAL: Awake and alert. <Shirley Harrell - 12/17/17 13:23> Assessment and Plan - Assessment (1) CKD (chronic kidney disease) stage V requiring chronic dialysis Code(s): N18.6 - End stage renal disease; Z99.2 - Dependence on renal dialysis Status: Chronic Plan: Dialysis MWF via [facility] Perm Cath until placement obtained. See dispo below S/p right upper extremity AV fistula creation on 11/26/2017 Nephrology following, renal us shows atrophy Plan for weekly labs (CBC, CMP), next due 12/22 (2) Anemia of renal disease Code(s): D63.1 - Anemia in chronic kidney disease Status: Acute Plan: Venofer and Epogen with dialysis. (3) Hypertension Code(s): I10 - Essential (primary) hypertension Status: Chronic Plan: Amlodipine 5mg po daily. Clonidine 0.1mg PO PRN for Systolic >180 or Diastolic >110. (4) Secondary hyperparathyroidism (of renal origin) Code(s): N25.81 - Secondary hyperparathyroidism of renal origin Status: Chronic Plan: Continue Calcitriol 0.25mcg qday. (5) Hyperphosphatemia Code(s): E83.39 - Other disorders of phosphorus metabolism Status: Acute Plan: Continue PhosLo w/ meals. <SharriShirley N - 12/17/17 13:22> - Assessment and Plan Disposition: CM on board. W/CM assistance, Emergency Medicaid has been applied for, but will also have to have Medicare to be accepted at most outpatient dialysis facilities ; this process can take 60-90 days. Therefore, does not meet requirements for transitional dialysis program until insurance is acceptable. He will likely have to remain inpatient until this can be arranged. Hospital Course: 27 year old male with recent discovered hypertension (within the last 6 months), recently diagnosed with chronic kidney disease while in [place] which now appears to be end-stage renal disease. Patient seen in [place] and started on dialysis. Some workup was done but he does not know what the etiology of kidney disease is. Patient is being managed by nephrology with plans for dialysis MWF. Patient's cause of kidney failure is still unknown, his elevated BP is likely a contributing factor. Kidney US showed small and atrophic kidneys with increased echogenicity characteristic of medical renal disease. Receiving hemodialysis via Permcath MWF. [facility] consulted for AVF placement, first stage completed on 11/26/17. Awaiting second stage of AVF creation. Getting DVT prophylaxis in dialysis. <Shirley Harrell - 12/17/17 13:23> - Attending Attestation See the residents documentation for details. I saw and evaluated the patient regarding the gonzáles portions of this evaluation and agree with the residents findings and plans as written. Parts of this note were created using [employer] voice recognition software program. While efforts were made to correct any mistakes made by this software, some mistakes, errors, and omissions may remain in the final note that were not caught when the note was originally created. Plan of care was discussed and agreed upon with the patient as specifically documented in the above note. An opportunity to ask questions with explanation was provided. Patient voiced understanding on all information reviewed and discussed. <Lakhwinder Stuart - 12/17/17 14:09>
[2017-12-17] MEDS: Senna/Docusate Sodium 8.6/50 MG Tablet PO SCH ×2 (13:50→20:59)
[2017-12-17] MEDS: amLODIPine 5 MG Tablet PO SCH (13:50)
[2017-12-17] MEDS: Calcitriol 0.25 MCG Capsule PO SCH (13:50)
[2017-12-17] MEDS: Calcium Acetate 667 MG Capsule PO SCH ×3 (13:50→18:15)
[2017-12-17] MEDS: Sodium Chloride 0.9% 2 ML Flush BID IV.FLUSH SCH ×2 (13:51→20:59)
--- NOTE | 2017-12-18 09:01 | P.PNFP ---
Subjective Interval history: No new problems, <SharriPepeShirley N - 12/18/17 11:18> Results - Labs Result diagrams: 12/15/17 07:19 12/15/17 07:19 <Lakhwinder Stuart - 12/18/17 13:05> Physical Exam Vital signs: Vital Signs 12/17/17 16:00 12/17/17 20:00 12/18/17 00:00 Temperature 98.1 F 98.6 F 97.8 F Pulse Rate 84 85 77 Respiratory Rate 18 18 18 Blood Pressure 124/64 109/57 L 110/56 L Pulse Oximetry 99 97 99 Intake & Output 12/17/17 12/18/17 12/18/17 18:59 06:59 18:59 Intake Total 420 / 420 Output Total 1999 Balance -1999 420 / 420 Weight 78.5 kg Intake: Oral 420 / 420 Output: Hemodialysis Amount 1999 Other: # Voids 2 Date of Last Bowel Movement 12/18/17 <Lakhwinder Staurt - 12/18/17 13:05> Vital Signs 12/17/17 16:00 12/17/17 20:00 12/18/17 00:00 Temperature 98.1 F 98.6 F 97.8 F Pulse Rate 84 85 77 Respiratory Rate 18 18 18 Blood Pressure 124/64 109/57 L 110/56 L Pulse Oximetry 99 97 99 Intake & Output 12/17/17 12/18/17 12/18/17 18:59 06:59 18:59 Intake Total 420 / 420 Output Total 1999 Balance -1999 420 / 420 Weight 78.5 kg Intake: Oral 420 / 420 Output: Hemodialysis Amount 1999 Other: # Voids 2 <SharriPepeShirley N - 12/18/17 09:01> Narrative: GENERAL: Pleasant. in NAD. SKIN: Warm and dry. PermCath in the right side chest wall intact, no active bleeding, no signs of infection. CARDIOVASCULAR: Regular rate. RESPIRATORY: No accessory muscle use. EXTREMITIES: No cyanosis or edema. Site of AVF procedure on left arm clean, dry , and intact suturing. NEUROLOGICAL: Awake and alert. <Shirley Harrell - 12/18/17 11:18> Assessment and Plan - Assessment (1) CKD (chronic kidney disease) stage V requiring chronic dialysis Code(s): N18.6 - End stage renal disease; Z99.2 - Dependence on renal dialysis Status: Chronic Plan: Dialysis MWF via [facility] Perm Cath until placement obtained. See dispo below S/p right upper extremity AV fistula creation on 11/26/2017 Nephrology following, renal us shows atrophy Plan for weekly labs (CBC, CMP), next due 12/22 (2) Anemia of renal disease Code(s): D63.1 - Anemia in chronic kidney disease Status: Acute Plan: Venofer and Epogen with dialysis. (3) Hypertension Code(s): I10 - Essential (primary) hypertension Status: Chronic Plan: Amlodipine 5mg po daily. Clonidine 0.1mg PO PRN for Systolic >180 or Diastolic >110. (4) Secondary hyperparathyroidism (of renal origin) Code(s): N25.81 - Secondary hyperparathyroidism of renal origin Status: Chronic Plan: Continue Calcitriol 0.25mcg qday. (5) Hyperphosphatemia Code(s): E83.39 - Other disorders of phosphorus metabolism Status: Acute Plan: Continue PhosLo w/ meals. <Shirley Harrell N - 12/18/17 11:18> - Assessment and Plan Disposition: CM on board. W/CM assistance, Emergency Medicaid has been applied for, but will also have to have Medicare to be accepted at most outpatient dialysis facilities ; this process can take 60-90 days. Therefore, does not meet requirements for transitional dialysis program until insurance is acceptable. He will likely have to remain inpatient until this can be arranged. Hospital Course: 27 year old male with recent discovered hypertension (within the last 6 months), recently diagnosed with chronic kidney disease while in [place] which now appears to be end-stage renal disease. Patient seen in [place] and started on dialysis. Some workup was done but he does not know what the etiology of kidney disease is. Patient is being managed by nephrology with plans for dialysis MWF. Patient's cause of kidney failure is still unknown, his elevated BP is likely a contributing factor. Kidney US showed small and atrophic kidneys with increased echogenicity characteristic of medical renal disease. Receiving hemodialysis via Permcath MWF. Vasc consulted for AVF placement, first stage completed on 11/26/17. Awaiting second stage of AVF creation. Getting DVT prophylaxis in dialysis. <Shirley Harrell N - 12/18/17 09:01> - Attending Attestation See the residents documentation for details. I saw and evaluated the patient regarding the gonzáles portions of this evaluation and agree with the residents findings and plans as written. Parts of this note were created using [employer] voice recognition software program. While efforts were made to correct any mistakes made by this software, some mistakes, errors, and omissions may remain in the final note that were not caught when the note was originally created. Plan of care was discussed and agreed upon with the patient as specifically documented in the above note. An opportunity to ask questions with explanation was provided. Patient voiced understanding on all information reviewed and discussed. <Lakhwinder Stuart - 12/18/17 13:05>
[2017-12-18] MEDS: Calcitriol 0.25 MCG Capsule PO SCH (09:17)
[2017-12-18] MEDS: Senna/Docusate Sodium 8.6/50 MG Tablet PO SCH ×2 (09:17→22:16)
[2017-12-18] MEDS: Sodium Chloride 0.9% 2 ML Flush BID IV.FLUSH SCH ×2 (09:17→22:16)
[2017-12-18] MEDS: Calcium Acetate 667 MG Capsule PO SCH ×3 (09:17→18:49)
[2017-12-18] MEDS: amLODIPine 5 MG Tablet PO SCH (09:17)
--- NOTE | 2017-12-19 08:27 | P.PNFP ---
Subjective Interval history: 27 yo male with ESRD on dialysis admitted for acute dialysis, now with continued stay for dialysis coordination. Patient seen examined this morning. Patient has no complaints at this time. Denies fever, chills, chest pain, shortness of breath, leg pain or swelling. He had no issues with dialysis yesterday. All questions answered at bedside. <Stacy Cunningham - 12/19/17 09:31> Results - Labs Result diagrams: 12/15/17 07:19 12/15/17 07:19 <Lakhwinder Stuart - 12/20/17 10:54> Physical Exam Vital signs: Vital Signs 12/19/17 12:00 12/19/17 16:00 12/19/17 20:00 Temperature 98.6 F 98.1 F 97.8 F Pulse Rate 80 81 79 Respiratory Rate 16 16 16 Blood Pressure 138/82 130/78 132/80 Pulse Oximetry 100 100 99 Intake & Output 12/19/17 12/20/17 12/20/17 18:59 06:59 18:59 Intake Total 0 / 0 Output Total 1 / 1 Balance 0 / 0 -1 / -1 Weight 80.3 kg Intake: Oral 0 / 0 Output: Urine / Other: # Voids 3 1 Date of Last Bowel Movement 12/18/17 # Bowel Movements 2 <Lakhwinder Stuart - 12/20/17 10:54> Vital Signs 12/18/17 12:00 12/18/17 16:00 12/18/17 20:00 Temperature 98.2 F 98.1 F 98.0 F Pulse Rate 75 81 81 Respiratory Rate 16 16 18 Blood Pressure 129/73 123/69 130/82 Pulse Oximetry 98 98 100 Intake & Output 12/18/17 12/19/17 12/19/17 19:59 06:59 18:59 Intake Total Balance Weight Intake: Oral Other: # Voids Date of Last Bowel Movement <Stacy Cunningham - 12/19/17 08:27> Narrative: GENERAL: Pleasant. in NAD. SKIN: Warm and dry. PermCath in the right side chest wall intact, no active bleeding, no signs of infection. CARDIOVASCULAR: Regular rate. RESPIRATORY: No accessory muscle use. EXTREMITIES: No cyanosis or edema. Site of AVF procedure on left arm clean, dry , and intact suturing. NEUROLOGICAL: Awake and alert. <Stacy Cunningham - 12/19/17 09:31> Assessment and Plan - Assessment (1) CKD (chronic kidney disease) stage V requiring chronic dialysis Code(s): N18.6 - End stage renal disease; Z99.2 - Dependence on renal dialysis Status: Chronic Plan: Dialysis MWF via [facility] Perm Cath until placement obtained. See dispo below S/p right upper extremity AV fistula creation on 11/26/2017 Nephrology following, renal us shows atrophy Plan for weekly labs (CBC, CMP), next due 12/23 (2) Anemia of renal disease Code(s): D63.1 - Anemia in chronic kidney disease Status: Acute Plan: Venofer and Epogen with dialysis. (3) Hypertension Code(s): I10 - Essential (primary) hypertension Status: Chronic Plan: Amlodipine 5mg po daily. Clonidine 0.1mg PO PRN for Systolic >180 or Diastolic >110. (4) Secondary hyperparathyroidism (of renal origin) Code(s): N25.81 - Secondary hyperparathyroidism of renal origin Status: Chronic Plan: Continue Calcitriol 0.25mcg qday. (5) Hyperphosphatemia Code(s): E83.39 - Other disorders of phosphorus metabolism Status: Acute Plan: Continue PhosLo w/ meals. <Stacy Cunningham - 12/19/17 11:07> - Assessment and Plan Discussed Condition With: snehal Stuart Disposition: CM on board. W/CM assistance, Emergency Medicaid has been applied for, but will also have to have Medicare to be accepted at most outpatient dialysis facilities ; this process can take 60-90 days. He does not meet requirements for transitional dialysis program until insurance is acceptable. He will likely have to remain inpatient until this can be arranged. Hospital Course: 27 year old male with recent discovered hypertension (within the last 6 months), recently diagnosed with chronic kidney disease while in [place] which now appears to be end-stage renal disease. Patient seen in [place] and started on dialysis. Some workup was done but he does not know what the etiology of kidney disease is. Patient is being managed by nephrology with plans for dialysis MWF. Patient's cause of kidney failure is still unknown, his elevated BP is likely a contributing factor. Kidney US showed small and atrophic kidneys with increased echogenicity characteristic of medical renal disease. Receiving hemodialysis via Permcath MWF. Vascular surgery consulted for AVF placement, first stage completed on 11/26/17. Awaiting second stage of AVF creation. Getting DVT prophylaxis, Venofer and Epogen as needed in dialysis. <Stacy Cunningham - 12/19/17 11:07> - Attending Attestation See the residents documentation for details. I saw and evaluated the patient regarding the gonzáles portions of this evaluation and agree with the residents findings and plans as written. Parts of this note were created using [employer] voice recognition software program. While efforts were made to correct any mistakes made by this software, some mistakes, errors, and omissions may remain in the final note that were not caught when the note was originally created. Plan of care was discussed and agreed upon with the patient as specifically documented in the above note. An opportunity to ask questions with explanation was provided. Patient voiced understanding on all information reviewed and discussed. <Lakhwinder Stuart - 12/20/17 10:54>
[2017-12-19] MEDS: amLODIPine 5 MG Tablet PO SCH (09:24)
[2017-12-19] MEDS: Calcium Acetate 667 MG Capsule PO SCH ×3 (09:24→18:22)
[2017-12-19] MEDS: Calcitriol 0.25 MCG Capsule PO SCH (09:25)
[2017-12-19] MEDS: Sodium Chloride 0.9% 2 ML Flush BID IV.FLUSH SCH ×2 (09:25→20:13)
[2017-12-19] MEDS: Senna/Docusate Sodium 8.6/50 MG Tablet PO SCH ×2 (09:25→20:13)
[2017-12-20] MEDS: Senna/Docusate Sodium 8.6/50 MG Tablet PO SCH ×2 (08:24→21:02)
[2017-12-20] MEDS: amLODIPine 5 MG Tablet PO SCH (08:24)
[2017-12-20] MEDS: Calcium Acetate 667 MG Capsule PO SCH ×3 (08:24→17:36)
[2017-12-20] MEDS: Sodium Chloride 0.9% 2 ML Flush BID IV.FLUSH SCH ×3 (08:24→21:03)
[2017-12-20] MEDS: Calcitriol 0.25 MCG Capsule PO SCH (08:24)
[2017-12-20] MEDS: Epoetin Alfa Inj 4,000 UNIT/ML Vial IV.PUSH SCH ×2 (08:25→11:16)
[2017-12-20 10:55] LABS: Baso # (Auto) 0.1 th/mm3 (0.0-0.2); Baso % (Auto) 2.1 % (0.0-2.0); Eos # (Auto) 0.2 th/mm3 (0.0-0.4); Eos % (Auto) 6.6 % (0.0-4.0); Hematocrit 28.5 % (39.0-51.0); Hemoglobin 10.2 gm/dL (13.0-17.0); Lymph # (Auto) 1.1 th/mm3 (1.0-4.8); Lymph % (Auto) 30.5 % (9.0-44.0); Mean Corpuscular HGB Conc 35.9 % (32.0-36.0); Mean Corpuscular Hemoglobin 34.6 pg (27.0-34.0); Mean Corpuscular Volume 96.5 fL (80.0-100.0); Mean Platelet Volume 7.9 fL (7.0-11.0); Mono # (Auto) 0.2 th/mm3 (0.0-0.9); Mono % (Auto) 5.9 % (0.0-8.0); Neut % (Auto) 54.9 % (16.0-70.0); Platelet Count 189 th/mm3 (150-450); Red Blood Count 2.96 mil/mm3 (4.50-5.90); Red Cell Distribution Width 14.1 % (11.6-17.2); White Blood Count 3.6 th/mm3 (4.0-11.0)
[2017-12-20] MEDS: Heparin 10,000 UNITS/10 ML Vial (for IV use) OTHER PRN (11:14)
--- NOTE | 2017-12-20 15:57 | P.PNFP ---
Subjective Interval history: Mr. Ma had no acute events overnight. Vital signs are stable. Patient had just come back from dialysis when he saw him. Denies chest pain, shortness of breath, nausea, vomiting, diarrhea, fever, chills, and leg pains. All questions were answered at bedside. We spoke to case management today who indicate it may be another 2 weeks before his emergency Medicaid is approved. Until that time we will provide for his care. Results - Labs Result diagrams: 12/20/17 09:20 12/15/17 07:19 Abnormal lab results 12/20/17 Range/Units 09:20 WBC 3.6 L (4.0-11.0) th/mm3 RBC 2.96 L (4.50-5.90) mil/mm3 Hgb 10.2 L (13.0-17.0) gm/dL Hct 28.5 L (39.0-51.0) % MCH 34.6 H (27.0-34.0) pg Eos % (Auto) 6.6 H (0.0-4.0) % Baso % (Auto) 2.1 H (0.0-2.0) % Short CBC 12/20/17 Range/Units 09:20 WBC 3.6 L (4.0-11.0) th/mm3 Hgb 10.2 L (13.0-17.0) gm/dL Hct 28.5 L (39.0-51.0) % Plt Count 189 (150-450) th/mm3 Physical Exam Vital signs: Vital Signs 12/19/17 16:00 12/19/17 20:00 12/20/17 08:00 Temperature 98.1 F 97.8 F 98.1 F Pulse Rate 81 79 73 Respiratory Rate 16 16 18 Blood Pressure 130/78 132/80 129/66 Pulse Oximetry 100 99 100 Intake & Output 12/19/17 12/20/17 12/20/17 18:59 06:59 18:59 Intake Total 0 / 0 Output Total / 1500 / 1500 Balance 0 / 0 -1 / -1 -1500 / -1500 Weight 80.3 kg Intake: Oral 0 / 0 Output: Urine / Hemodialysis Amount 1500 / 1500 Other: # Voids 3 1 Date of Last Bowel Movement 12/18/17 # Bowel Movements 2 Narrative: GENERAL: Young man sitting by the window in NAD. SKIN: Warm and dry. PermaCath in the right side chest wall intact, no active bleeding, no signs of infection. CARDIOVASCULAR: RRR. Normal S1/S2. No murmur, rub, or gallop. Extremities well perfused. RESPIRATORY: No accessory muscle use. Clear to auscultation bilaterally. EXTREMITIES: No cyanosis or edema. Moves all extremities spontaneously. Site of AVF procedure on left arm clean, dry, and intact with Steri-Strips in place. NEUROLOGICAL: AO x3. CN II-XII grossly intact. Normal speech. Assessment and Plan - Assessment (1) CKD (chronic kidney disease) stage V requiring chronic dialysis Code(s): N18.6 - End stage renal disease; Z99.2 - Dependence on renal dialysis Status: Chronic Plan: Dialysis MWF via [facility] PermaCath until placement obtained. See dispo below. 1500 mL taken off during dialysis today S/p right upper extremity AV fistula creation on 11/26/2017 Nephrology following, renal US shows atrophic kidneys indicative of medical renal disease Plan for weekly labs (CBC, CMP); CBC today showing WBC trending downward (2) Anemia of renal disease Code(s): D63.1 - Anemia in chronic kidney disease Status: Acute Plan: Venofer and Epogen with dialysis. (3) Hypertension Code(s): I10 - Essential (primary) hypertension Status: Chronic Plan: Amlodipine 5mg po daily. Clonidine 0.1mg PO PRN for Systolic >180 or Diastolic >110. (4) Secondary hyperparathyroidism (of renal origin) Code(s): N25.81 - Secondary hyperparathyroidism of renal origin Status: Chronic Plan: Continue Calcitriol 0.25mcg qday as per nephrology (5) Hyperphosphatemia Code(s): E83.39 - Other disorders of phosphorus metabolism Status: Acute Plan: Continue PhosLo w/ meals as per nephrology - Assessment and Plan FEN/GI/PPx: PO fluids Will follow electrolytes via nephrology during dialysis Renal diet GI: PPx: Heparin during dialysis Tylenol 650 mg q6h PRN for fever [place] 5-325 q4h PRN for pain Zofran 4 mg q8h PRN nausea SDW Kane Stuart and Jean Marie
[2017-12-20] MEDS: Acetaminophen 325 MG Tablet PO PRN (21:02)
[2017-12-21 08:28] LABS: Hematocrit 31.4 % (39.0-51.0); Hemoglobin 10.9 gm/dL (13.0-17.0); Mean Corpuscular HGB Conc 34.8 % (32.0-36.0); Mean Corpuscular Hemoglobin 34.4 pg (27.0-34.0); Mean Corpuscular Volume 98.9 fL (80.0-100.0); Mean Platelet Volume 7.2 fL (7.0-11.0); Platelet Count 197 th/mm3 (150-450); Red Blood Count 3.18 mil/mm3 (4.50-5.90); Red Cell Distribution Width 14.3 % (11.6-17.2)
[2017-12-21 09:00] LABS: Calcium 8.6 mg/dL (8.5-10.1); Carbon Dioxide 32.8 meq/L (21.0-32.0); Potassium 4.8 meq/L (3.5-5.1)
--- NOTE | 2017-12-21 10:01 | P.PNNP ---
Subjective Interval history: Patient lying in bed not in respiratory distress and no verbal complaints. Patient was seen with the hospital director of hotel operations service who was kind enough to translate for me today. Physical Exam Vital signs: Vital Signs 12/20/17 16:00 12/20/17 20:00 12/21/17 00:00 Temperature 98.8 F 98.7 F 98.3 F Pulse Rate 90 81 76 Respiratory Rate 18 18 18 Blood Pressure 121/65 124/72 119/57 L Pulse Oximetry 99 98 100 Intake & Output 12/20/17 12/21/17 12/21/17 18:59 06:59 18:59 Intake Total 850 / 850 240 / 240 Output Total 1500 / 1500 Balance -650 / -650 240 / 240 Weight 78.9 kg Intake: Oral 850 / 850 240 / 240 Output: Hemodialysis Amount 1500 / 1500 Other: # Voids 5 2 # Bowel Movements 1 Assessment and Plan - Assessment (1) CKD (chronic kidney disease) stage V requiring chronic dialysis Code(s): N18.6 - End stage renal disease; Z99.2 - Dependence on renal dialysis Status: Chronic Plan: After conversation with the GROUP CAPTAIN of [facility] the following plan is in place for the patient to receive outpatient care and dialysis. I discussed the following with the patient via the possible director of hotel operations services provided by [facility]. I will sign the transitional dialysis orders on the understanding that I will be taking a leave of absence from this hospital starting 31 January 2018 at which time another sustainability project coordinator will have to take over his care. I discussed the situation with Dr. Hooker and he is advised me that he will take over nephrology care of this patient after my leave of absence takes into effect so that the patient can stay within the transitional program of the [facility] for dialysis. The patient has agreed to this arrangement. He was also advised that he needs to see me in the office after discharge at least once. Under this understanding I have signed the transitional hemodialysis orders and once the hospital has arranged for dialysis after discharge he is clear for discharge from my point of view. Patient was again advised to be compliant with dialysis and to keep his dialysis catheter dry at all times. Otherwise patient appears to be clinically stable and tolerating dialysis well. Await maturity of his dialysis fistula with subsequent conversion of access from hemodialysis PermCath to AV dialysis fistula. Continue HD MWF. Medication should be adjusted for the patient's renal failure when indicated. Avoid gadolinium which is contraindicated. (2) Secondary hyperparathyroidism (of renal origin) Code(s): N25.81 - Secondary hyperparathyroidism of renal origin Status: Chronic Plan: Continue Rocaltrol (3) Anemia of renal disease Code(s): D63.1 - Anemia in chronic kidney disease Status: Acute Plan: Venofer and Epogen with HD. (4) Hyperphosphatemia Code(s): E83.39 - Other disorders of phosphorus metabolism Status: Acute Plan: Continue with PhosLo - Plan Patient presently has renal failure. Duration uncertain presently and etiology not entirely clear. Renal US reveals very atrophic kidneys measured at 7cm each with increased echogenicity indicative of chronic renal disease. Other work up at this point negative. Given his renal atrophy, it is doubtful that a renal biopsy would yield any reliable results and is not felt to be beneficial at this time as it would not change treatment course. As discussed with the patient and his family, it does appear that he is end- stage renal disease at this point in time and will require dialysis long-term. I am under the understanding that emergency Medicaid has been applied for, but will also have to have Medicare to be accepted at most (if not all) outpatient dialysis facilities; he was advised that this process can take upwards of 60-90 days. We do appreciate case management assistance in this regard. As he will likely not have an accepting outpatient dialysis facility until he has both Medicaid and Medicare, he will likely have to remain inpatient until this can be arranged. He does live in [place] and likely would not meet requirements for transitional dialysis program because of this. His family was inquiring about transplant, and I do feel that he is a good candidate to be worked up, but again the issues is a payor source. Will await finalization of screening labs to give us insight on underlying etiology, but unfortunately we not be able to provide this answer for the patient. We will consult vascular surgery to see if they would be agreeable for AVF placement while in hospital as he has a [facility] PermCath. The patient was provided educational handouts regarding long-term dialysis, access, and diet (in Amharic) . Will tentatively keep the patient on MWF hemodialysis schedule with next HD 02/01. Medication should be adjusted for the patient's renal failure when indicated. Avoid gadolinium which is contraindicated.
[2017-12-21] MEDS: Calcium Acetate 667 MG Capsule PO SCH ×3 (10:17→17:40)
[2017-12-21] MEDS: Senna/Docusate Sodium 8.6/50 MG Tablet PO SCH ×2 (10:17→21:58)
[2017-12-21] MEDS: Sodium Chloride 0.9% 2 ML Flush BID IV.FLUSH SCH ×3 (10:18→21:58)
[2017-12-21] MEDS: Calcitriol 0.25 MCG Capsule PO SCH (10:18)
[2017-12-21] MEDS: amLODIPine 5 MG Tablet PO SCH (10:20)
--- NOTE | 2017-12-21 12:28 | P.PNFP ---
Subjective Interval history: Mr. Ma had no acute event events overnight. He went to hemodialysis yesterday where 1.5 L were taken off. He is tolerating dialysis well on Wednesday and Wednesday. We are currently working with case management and nephrology to arrange for emergency Medicare with dialysis upon discharge. As soon as all the arrangements are worked out patient will discharge. It appears Dr. Whitney will provide for this until [address] Hooker will take over his outpatient dialysis. Patient denies chest pain, shortness of breath, fever, chills, nausea, vomiting, diarrhea, and leg pain. <Hector Ladd III - 12/21/17 12:28> Results - Labs Result diagrams: 12/22/17 03:56 12/22/17 03:56 <Lakhwinder Stuart - 12/22/17 11:41> Abnormal lab results 12/22/17 12/22/17 Range/Units 03:56 03:56 RBC 3.10 L (4.50-5.90) mil/mm3 Hgb 10.6 L (13.0-17.0) gm/dL Hct 30.2 L (39.0-51.0) % MCH 34.1 H (27.0-34.0) pg Eos % (Auto) 4.6 H (0.0-4.0) % BUN 66 H (7-18) mg/dL Creatinine 12.52 H* D (0.60-1.30) mg/dL Estimated GFR 5 L (>89) mL/min Short CBC 12/22/17 Range/Units 03:56 WBC 8.9 D (4.0-11.0) th/mm3 Hgb 10.6 L (13.0-17.0) gm/dL Hct 30.2 L (39.0-51.0) % Plt Count 199 (150-450) th/mm3 BMP 12/22/17 03:56 Sodium 142 Potassium 4.4 Chloride 102 Carbon Dioxide 28.8 BUN 66 H Creatinine 12.52 H* D Calcium 8.6 <Lakhwinder Stuart - 12/22/17 11:41> Abnormal lab results 12/21/17 12/21/17 Range/Units 07:57 07:57 RBC 3.18 L (4.50-5.90) mil/mm3 Hgb 10.9 L (13.0-17.0) gm/dL Hct 31.4 L (39.0-51.0) % MCH 34.4 H (27.0-34.0) pg Carbon Dioxide 32.8 H (21.0-32.0) meq/L BUN 53 H (7-18) mg/dL Creatinine 10.91 H* (0.60-1.30) mg/dL Estimated GFR 6 L (>89) mL/min Short CBC 12/21/17 Range/Units 07:57 WBC 5.0 (4.0-11.0) th/mm3 Hgb 10.9 L (13.0-17.0) gm/dL Hct 31.4 L (39.0-51.0) % Plt Count 197 (150-450) th/mm3 BMP 12/21/17 07:57 Sodium 142 Potassium 4.8 Chloride 101 Carbon Dioxide 32.8 H BUN 53 H Creatinine 10.91 H* Calcium 8.6 <Hector Ladd III - 12/21/17 12:28> Physical Exam Vital signs: Vital Signs 12/21/17 20:00 12/22/17 00:00 Temperature 97.8 F 97.5 F L Pulse Rate 75 70 Respiratory Rate 18 18 Blood Pressure 132/70 121/65 Pulse Oximetry 100 100 Intake & Output 12/21/17 12/22/17 12/22/17 18:59 06:59 18:59 Intake Total 320 / 320 Output Total 1999 Balance 320 / 320 -1999 Weight 81.4 kg Intake: Oral 320 / 320 Output: Hemodialysis Amount 1999 Other: Date of Last Bowel Movement 12/18/17 12/21/17 <Lakhwinder Stuart - 12/22/17 11:41> Vital Signs 12/20/17 16:00 12/20/17 20:00 12/21/17 00:00 Temperature 98.8 F 98.7 F 98.3 F Pulse Rate 90 81 76 Respiratory Rate 18 18 18 Blood Pressure 121/65 124/72 119/57 L Pulse Oximetry 99 98 100 Intake & Output 12/20/17 12/21/17 12/21/17 18:59 06:59 18:59 Intake Total 850 / 850 240 / 240 Output Total 1500 / 1500 Balance -650 / -650 240 / 240 Weight 78.9 kg Intake: Oral 850 / 850 240 / 240 Output: Hemodialysis Amount 1500 / 1500 Other: # Voids 5 2 # Bowel Movements 1 <Hector Ladd III - 12/21/17 12:28> Narrative: GENERAL: Young man lying in bed in NAD. SKIN: Warm and dry. PermaCath in the right side chest wall intact, no active bleeding, no signs of infection. CARDIOVASCULAR: RRR. Normal S1/S2. No murmur, rub, or gallop. Extremities well perfused. RESPIRATORY: No accessory muscle use. Clear to auscultation bilaterally. EXTREMITIES: No cyanosis or edema. Moves all extremities spontaneously. Site of AVF procedure on left arm clean, dry, and intact with Steri-Strips in place. NEUROLOGICAL: AO x3. CN II-XII grossly intact. Normal speech. <Hector Ladd III - 12/21/17 18:41> Assessment and Plan - Assessment (1) CKD (chronic kidney disease) stage V requiring chronic dialysis Code(s): N18.6 - End stage renal disease; Z99.2 - Dependence on renal dialysis Status: Chronic (2) Anemia of renal disease Code(s): D63.1 - Anemia in chronic kidney disease Status: Acute (3) Hypertension Code(s): I10 - Essential (primary) hypertension Status: Chronic (4) Secondary hyperparathyroidism (of renal origin) Code(s): N25.81 - Secondary hyperparathyroidism of renal origin Status: Chronic (5) Hyperphosphatemia Code(s): E83.39 - Other disorders of phosphorus metabolism Status: Acute <Lakhwinder Stuart - 12/22/17 11:41> (1) CKD (chronic kidney disease) stage V requiring chronic dialysis Code(s): N18.6 - End stage renal disease; Z99.2 - Dependence on renal dialysis Status: Chronic Plan: Dialysis MWF via [facility] PermaCath until placement obtained. See dispo below. S/p right upper extremity AV fistula creation on 11/26/2017 Nephrology following, renal US shows atrophic kidneys indicative of medical renal disease Plan for weekly labs (CBC, CMP); CBC stable with Hgb >10 (2) Anemia of renal disease Code(s): D63.1 - Anemia in chronic kidney disease Status: Acute Plan: Venofer and Epogen with dialysis. (3) Hypertension Code(s): I10 - Essential (primary) hypertension Status: Chronic Plan: Stable and controlled Amlodipine 5mg po daily. Clonidine 0.1mg PO PRN for Systolic >180 or Diastolic >110. (4) Secondary hyperparathyroidism (of renal origin) Code(s): N25.81 - Secondary hyperparathyroidism of renal origin Status: Chronic Plan: Continue Calcitriol 0.25mcg qday as per nephrology (5) Hyperphosphatemia Code(s): E83.39 - Other disorders of phosphorus metabolism Status: Acute Plan: Continue PhosLo w/ meals as per nephrology <Hector Ladd III - 12/21/17 18:36> - Assessment and Plan FEN/GI/PPx: PO fluids Will follow electrolytes via nephrology during dialysis Renal diet GI: PPx: Heparin during dialysis Tylenol 650 mg q6h PRN for fever [place] 5-325 q4h PRN for pain Zofran 4 mg q8h PRN nausea Dispo: As above, Dr Whitney has agreed to see the pt at dialysis until Jan [address] Hooker has agreed to provide for dialysis for the pt. As per request of nephrology, influenza, PCV-23 and PPD have been ordered in anticipation of discharge. SDW Kane Stuart <Hector Ladd III - 12/21/17 18:41> - Attending Attestation See the residents documentation for details. I saw and evaluated the patient regarding the gonzáles portions of this evaluation and agree with the residents findings and plans as written. Parts of this note were created using [employer] voice recognition software program. While efforts were made to correct any mistakes made by this software, some mistakes, errors, and omissions may remain in the final note that were not caught when the note was originally created. Plan of care was discussed and agreed upon with the patient as specifically documented in the above note. An opportunity to ask questions with explanation was provided. Patient voiced understanding on all information reviewed and discussed. <Lakhwinder Stuart - 12/22/17 11:41>
[2017-12-21] MEDS ORDERED: Influenza (Quadrivalent) Vaccine 0.5 ML Syringe IM ONE (16:39)
[2017-12-21] MEDS ORDERED: Pneumococcal-23 Polyvalent Vaccine Inj 25 MCG/0.5 ML Syringe IM ONE (16:46)
[2017-12-21] MEDS ORDERED: Tuberculin PPD 5 UNITS/0.1 ML Syringe I-DERMAL ONE (18:00)
[2017-12-22 05:05] LABS: Calcium 8.6 mg/dL (8.5-10.1); Carbon Dioxide 28.8 meq/L (21.0-32.0); Potassium 4.4 meq/L (3.5-5.1)
[2017-12-22 05:07] LABS: Baso # (Auto) 0.2 th/mm3 (0.0-0.2); Baso % (Auto) 1.7 % (0.0-2.0); Eos # (Auto) 0.4 th/mm3 (0.0-0.4); Eos % (Auto) 4.6 % (0.0-4.0); Hematocrit 30.2 % (39.0-51.0); Hemoglobin 10.6 gm/dL (13.0-17.0); Lymph # (Auto) 1.5 th/mm3 (1.0-4.8); Lymph % (Auto) 17.2 % (9.0-44.0); Mean Corpuscular HGB Conc 35.1 % (32.0-36.0); Mean Corpuscular Hemoglobin 34.1 pg (27.0-34.0); Mean Corpuscular Volume 97.2 fL (80.0-100.0); Mean Platelet Volume 7.6 fL (7.0-11.0); Mono # (Auto) 0.7 th/mm3 (0.0-0.9); Neut # (Auto) 6.1 th/mm3 (1.8-7.7); Neut % (Auto) 68.5 % (16.0-70.0); Platelet Count 199 th/mm3 (150-450); Red Cell Distribution Width 14.3 % (11.6-17.2); White Blood Count 8.9 th/mm3 (4.0-11.0)
[2017-12-22] MEDS: Senna/Docusate Sodium 8.6/50 MG Tablet PO SCH ×2 (13:59→20:37)
[2017-12-22] MEDS: Calcium Acetate 667 MG Capsule PO SCH ×3 (13:59→18:31)
[2017-12-22] MEDS: Acetaminophen 325 MG Tablet PO PRN (13:59)
[2017-12-22] MEDS: amLODIPine 5 MG Tablet PO SCH (14:00)
[2017-12-22] MEDS: Calcitriol 0.25 MCG Capsule PO SCH (14:00)
[2017-12-22] MEDS: Sodium Chloride 0.9% 2 ML Flush BID IV.FLUSH SCH ×2 (14:00→20:37)
--- NOTE | 2017-12-22 14:22 | P.PNFP ---
Subjective Interval history: Mr. Ma had no acute events overnight. Today we saw him in hemodialysis suite where he was comfortable and had no complaints. A total of 2 L was taken off today. We discussed with him the possibility of discharging within the next 1-2 days once case management has his discharge ready. As previously discussed, Dr. Whitney will provide for his care/hemodialysis until January 31. At that time Dr. Hooker has agreed to take over his hemodynamic dialysis care. Patient has gotten his flu, pneumococcal, and PPD immunizations. We discussed his case with case management this morning and once complete he will discharge. He denies chest pain, shortness of breath, fever, chills, nausea, vomiting, diarrhea, abdominal or leg pain. <Hector Ladd III - 12/22/17 14:21> Results - Labs Result diagrams: 12/23/17 08:01 12/22/17 03:56 <Lakhwinder Stuart - 12/24/17 15:36> Abnormal lab results 12/22/17 12/22/17 Range/Units 03:56 03:56 RBC 3.10 L (4.50-5.90) mil/mm3 Hgb 10.6 L (13.0-17.0) gm/dL Hct 30.2 L (39.0-51.0) % MCH 34.1 H (27.0-34.0) pg Eos % (Auto) 4.6 H (0.0-4.0) % BUN 66 H (7-18) mg/dL Creatinine 12.52 H* D (0.60-1.30) mg/dL Estimated GFR 5 L (>89) mL/min Short CBC 12/22/17 Range/Units 03:56 WBC 8.9 D (4.0-11.0) th/mm3 Hgb 10.6 L (13.0-17.0) gm/dL Hct 30.2 L (39.0-51.0) % Plt Count 199 (150-450) th/mm3 BMP 12/22/17 03:56 Sodium 142 Potassium 4.4 Chloride 102 Carbon Dioxide 28.8 BUN 66 H Creatinine 12.52 H* D Calcium 8.6 <Hector Ladd III - 12/22/17 14:21> Physical Exam Vital signs: Vital Signs 12/21/17 20:00 12/22/17 00:00 Temperature 97.8 F 97.5 F L Pulse Rate 75 70 Respiratory Rate 18 18 Blood Pressure 132/70 121/65 Pulse Oximetry 100 100 Intake & Output 12/21/17 12/22/17 12/22/17 18:59 06:59 18:59 Intake Total 320 / 320 Output Total 1999 Balance 320 / 320 -1999 Weight 81.4 kg Intake: Oral 320 / 320 Output: Hemodialysis Amount 1999 Other: Date of Last Bowel Movement 12/18/17 12/21/17 <Hector Ladd III - 12/22/17 14:21> Narrative: GENERAL: Young man lying in bed in NAD in the hemodialysis suite. SKIN: Warm and dry. PermaCath in the right side chest wall intact, no active bleeding, no signs of infection. CARDIOVASCULAR: RRR. Normal S1/S2. No murmur, rub, or gallop. Extremities well perfused. RESPIRATORY: No accessory muscle use. Clear to auscultation bilaterally. EXTREMITIES: No cyanosis or edema. Moves all extremities spontaneously. Site of AVF procedure on left arm clean, dry, and intact with Steri-Strips in place. NEUROLOGICAL: AO x3. CN II-XII grossly intact. Normal speech. <Hector Ladd III - 12/22/17 14:21> Assessment and Plan - Assessment (1) CKD (chronic kidney disease) stage V requiring chronic dialysis Code(s): N18.6 - End stage renal disease; Z99.2 - Dependence on renal dialysis Status: Chronic (2) Anemia of renal disease Code(s): D63.1 - Anemia in chronic kidney disease Status: Acute (3) Hypertension Code(s): I10 - Essential (primary) hypertension Status: Chronic (4) Secondary hyperparathyroidism (of renal origin) Code(s): N25.81 - Secondary hyperparathyroidism of renal origin Status: Chronic (5) Hyperphosphatemia Code(s): E83.39 - Other disorders of phosphorus metabolism Status: Acute <Lakhwinder Stuart - 12/24/17 15:36> (1) CKD (chronic kidney disease) stage V requiring chronic dialysis Code(s): N18.6 - End stage renal disease; Z99.2 - Dependence on renal dialysis Status: Chronic Plan: Dialysis MWF via [facility] PermaCath until placement obtained. See dispo below. -S/p right upper extremity AV fistula creation on 11/26/[address] Dallas -This morning Dr. Dallas confirmed that patient will follow up with him 6 weeks after AV fistula creation for follow-up -Nephrology following, renal US shows atrophic kidneys indicative of medical renal disease -Plan for weekly labs (CBC, CMP); CBC stable with Hgb >10 (2) Anemia of renal disease Code(s): D63.1 - Anemia in chronic kidney disease Status: Acute Plan: Venofer and Epogen with dialysis. (3) Hypertension Code(s): I10 - Essential (primary) hypertension Status: Chronic Plan: Stable and controlled Amlodipine 5mg po daily. Clonidine 0.1mg PO PRN for Systolic >180 or Diastolic >110. (4) Secondary hyperparathyroidism (of renal origin) Code(s): N25.81 - Secondary hyperparathyroidism of renal origin Status: Chronic Plan: Continue Calcitriol 0.25mcg qday as per nephrology (5) Hyperphosphatemia Code(s): E83.39 - Other disorders of phosphorus metabolism Status: Acute Plan: Continue PhosLo w/ meals as per nephrology <Hector Ladd III - 12/22/17 14:15> - Assessment and Plan FEN/GI/PPx: PO fluids Will follow electrolytes via nephrology during dialysis Renal diet GI: None indicated PPx: Heparin during dialysis Tylenol 650 mg q6h PRN for fever [place] 5-325 q4h PRN for pain Zofran 4 mg q8h PRN nausea Dispo: As above, Dr Whitney has agreed to see the pt at dialysis until Jan [address] Hooker has agreed to provide for dialysis for the pt. and his agents completed. SDW Kane Stuart and Jean Marie <Hector Ladd III - 12/22/17 14:21> - Attending Attestation ee the residents documentation for details. I saw and evaluated the patient regarding the gonzáles portions of this evaluation and agree with the residents findings and plans as written. Parts of this note were created using [employer] voice recognition software program. While efforts were made to correct any mistakes made by this software, some mistakes, errors, and omissions may remain in the final note that were not caught when the note was originally created. Plan of care was discussed and agreed upon with the patient as specifically documented in the above note. An opportunity to ask questions with explanation was provided. Patient voiced understanding on all information reviewed and discussed. <Lakhwinder Stuart - 12/24/17 15:36>
--- NOTE | 2017-12-22 17:41 | XR ---
EXAM DATE: 12/22/2017 5:37 PM EST AGE/SEX: 27 years / Male INDICATIONS: . Shortness of breath. CLINICAL DATA: This is the patient's subsequent encounter. Patient reports that signs and symptoms h ave been present for 1 month and indicates a pain score of 0/10. MEDICAL/SURGICAL HISTORY: . Hypertension. Chronic kidney disease stage V requiring chronic dial ysis. None. COMPARISON: [facility] – [place], CHEST 2V AP&LAT, 11/27/2017. . FINDINGS: AP and lateral views of the chest demonstrate the lungs to be symmetrically aerated without evidence of mass, infiltrate or effusion. The cardiomediastinal contours are unremarkable. Osseous structure s are intact. Subtle right-sided central venous catheter is in stable position. CONCLUSION: No evidence of acute process. Stable tunneled central venous catheter. Electronically signed by: Neno Bustamante MD 12/22/2017 5:40 PM EST
[2017-12-23 08:35] VITALS: RESP 16
[2017-12-23 09:02] LABS: Baso # (Auto) 0.1 th/mm3 (0.0-0.2); Baso % (Auto) 1.4 % (0.0-2.0); Eos # (Auto) 0.2 th/mm3 (0.0-0.4); Eos % (Auto) 2.2 % (0.0-4.0); Hematocrit 33.5 % (39.0-51.0); Hemoglobin 11.7 gm/dL (13.0-17.0); Lymph # (Auto) 1.5 th/mm3 (1.0-4.8); Lymph % (Auto) 17.7 % (9.0-44.0); Mean Corpuscular HGB Conc 34.9 % (32.0-36.0); Mean Corpuscular Hemoglobin 34.2 pg (27.0-34.0); Mean Corpuscular Volume 98.1 fL (80.0-100.0); Neut # (Auto) 5.6 th/mm3 (1.8-7.7); Neut % (Auto) 66.7 % (16.0-70.0); Platelet Count 181 th/mm3 (150-450); Red Blood Count 3.42 mil/mm3 (4.50-5.90); Red Cell Distribution Width 14.1 % (11.6-17.2); White Blood Count 8.3 th/mm3 (4.0-11.0)
[2017-12-23] MEDS: amLODIPine 5 MG Tablet PO SCH (10:34)
[2017-12-23] MEDS: Senna/Docusate Sodium 8.6/50 MG Tablet PO SCH (10:34)
[2017-12-23] MEDS: Calcitriol 0.25 MCG Capsule PO SCH (10:34)
[2017-12-23] MEDS: Calcium Acetate 667 MG Capsule PO SCH ×2 (10:34→13:51)
[2017-12-23] MEDS: Sodium Chloride 0.9% 2 ML Flush BID IV.FLUSH SCH (10:34)
--- NOTE | 2017-12-23 11:02 | P.PNFP ---
Subjective Interval history: Patient seen and examined at bedside this morning. Patient is doing well this morning. He had a fever yesterday likely due to an immune response from his immunizations that he received. He denies chest pain, shortness of breath, abdominal pain, nausea, vomiting, diarrhea. He is ready to go home. He will be getting dialysis at the [facility] Wednesday, , and Wednesday. Because he was getting dialysis Wednesday, Wednesday, and Wednesday during his hospitalization, this was okayed by nephrology. His next dialysis will be December 25. <Sivan Aj - 12/23/17 14:13> Results - Labs Result diagrams: 12/23/17 08:01 12/22/17 03:56 <Lakhwinder Stuart - 12/24/17 15:46> Abnormal lab results 12/23/17 Range/Units 08:01 RBC 3.42 L (4.50-5.90) mil/mm3 Hgb 11.7 L (13.0-17.0) gm/dL Hct 33.5 L (39.0-51.0) % MCH 34.2 H (27.0-34.0) pg [place] % (Auto) 12.0 H (0.0-8.0) % [place] # (Auto) 1.0 H (0.0-0.9) th/mm3 Short CBC 12/23/17 Range/Units 08:01 WBC 8.3 (4.0-11.0) th/mm3 Hgb 11.7 L (13.0-17.0) gm/dL Hct 33.5 L (39.0-51.0) % Plt Count 181 (150-450) th/mm3 <Sivan Aj - 12/23/17 11:02> - Imaging Impressions Chest X-Ray 12/22/17 00:00 CONCLUSION: No evidence of acute process. Stable tunneled central venous catheter. <Sivan Aj - 12/23/17 11:02> Physical Exam Vital signs: Vital Signs 12/22/17 16:30 12/22/17 16:41 12/22/17 20:00 Temperature 99.4 F 98.9 F Pulse Rate 102 H 95 H Respiratory Rate 18 16 Blood Pressure 114/56 L 101/58 L Pulse Oximetry 96 99 12/23/17 00:00 12/23/17 08:00 Temperature 99.8 F H 98.2 F Pulse Rate 105 H 92 H Respiratory Rate 17 16 Blood Pressure 136/63 101/55 L Pulse Oximetry 100 99 Intake & Output 12/22/17 12/23/17 12/23/17 18:59 06:59 18:59 Intake Total 480 / 480 600 / 600 Output Total 1999 Balance -1520 / -1520 600 / 600 Weight 80.3 kg Intake: Oral 480 / 480 600 / 600 Output: Hemodialysis Amount 1999 Other: # Voids 1 <Jean MarieSivan A - 12/23/17 11:02> Narrative: GENERAL: NAD. SKIN: Warm and dry. PermaCath in the right side chest wall intact, no active bleeding, no signs of infection. CARDIOVASCULAR: RRR. No murmur, rub, or gallop. Extremities well perfused. RESPIRATORY: No accessory muscle use. Clear to auscultation bilaterally. EXTREMITIES: No cyanosis or edema. Moves all extremities spontaneously. Site of AVF procedure on left arm clean, dry, and intact. NEUROLOGICAL: AO x3. Normal speech. <Jean MarieSivan A - 12/23/17 14:13> Assessment and Plan - Assessment (1) CKD (chronic kidney disease) stage V requiring chronic dialysis Code(s): N18.6 - End stage renal disease; Z99.2 - Dependence on renal dialysis Status: Chronic (2) Anemia of renal disease Code(s): D63.1 - Anemia in chronic kidney disease Status: Acute (3) Hypertension Code(s): I10 - Essential (primary) hypertension Status: Chronic (4) Secondary hyperparathyroidism (of renal origin) Code(s): N25.81 - Secondary hyperparathyroidism of renal origin Status: Chronic (5) Hyperphosphatemia Code(s): E83.39 - Other disorders of phosphorus metabolism Status: Acute <Lakhwinder Stuart - 12/24/17 15:46> (1) CKD (chronic kidney disease) stage V requiring chronic dialysis Code(s): N18.6 - End stage renal disease; Z99.2 - Dependence on renal dialysis Status: Chronic Plan: Dialysis T,R,Sat via [facility]. -S/p right upper extremity AV fistula creation on 11/26/[address] Dallas -Dr. Dallas confirmed that patient will follow up with him 6 weeks after AV fistula creation for follow-up -Nephrology following, renal US shows atrophic kidneys indicative of medical renal disease (2) Anemia of renal disease Code(s): D63.1 - Anemia in chronic kidney disease Status: Acute Plan: Venofer and Epogen with dialysis. (3) Hypertension Code(s): I10 - Essential (primary) hypertension Status: Chronic Plan: Stable and controlled Amlodipine 5mg po daily. (4) Secondary hyperparathyroidism (of renal origin) Code(s): N25.81 - Secondary hyperparathyroidism of renal origin Status: Chronic Plan: Continue Calcitriol 0.25mcg qday as per nephrology (5) Hyperphosphatemia Code(s): E83.39 - Other disorders of phosphorus metabolism Status: Acute Plan: Continue PhosLo w/ meals as per nephrology <Sivan Aj - 12/23/17 14:18> - Assessment and Plan FEN/GI/PPx: PO fluids Renal diet GI: None indicated PPx: Heparin during dialysis Tylenol 650 mg q6h PRN for fever [place] 5-325 q4h PRN for pain Zofran 4 mg q8h PRN nausea Dispo: As above, Dr Whitney has agreed to see the pt at dialysis until Jan [address] Hooker has agreed to provide for dialysis for the pt. and his agents completed. He will be discharged today with a Wednesday, , Wednesday dialysis schedule. SDW Kane Stuart and Julee <Sivan Aj - 12/23/17 14:19> - Attending Attestation See the residents documentation for details. I saw and evaluated the patient regarding the gonzáles portions of this evaluation and agree with the residents findings and plans as written. Parts of this note were created using [employer] voice recognition software program. While efforts were made to correct any mistakes made by this software, some mistakes, errors, and omissions may remain in the final note that were not caught when the note was originally created. Plan of care was discussed and agreed upon with the patient as specifically documented in the above note. An opportunity to ask questions with explanation was provided. Patient voiced understanding on all information reviewed and discussed. <Lakhwinder Stuart - 12/24/17 15:46>
[2017-12-23 11:45] VITALS: BP 123/58; PULSE 86; TEMP 98; O2SAT 100
--- NOTE | 2017-12-23 14:20 | P.DS ---
Date of admission: 11/22/17 12:24 Primary care physician: No Primary Care Physician Brief History from admission: 27 yr old male Bermudian speaker presented to the ED with a recently diagnosed CKD stage V, requiring dialysis. He states he has been previously healthy, with no medical conditions, or chronic medical disease. He was recently in [place], started note feeling well, including hypotension, weakness, and nausea. He went to the hospital and was then diagnosed with chronic kidney failure. He was started on dialysis and a worked up was done, however they did not give him a cause of his kidney failure. He states they talked about doing a kidney biopsy but was not performed, they also discussed the possibility of a kidney transplant. He received dialysis 3 times in order to stabilize him for him to return to the [place]. The only other sick episode he had, was about 3 months ago, then he was not feeling well, with some nausea, and vomiting. He states his hypertension was discovered about 6 months ago, but nothing before that. He is not taking any medications. Pt denies any drug use, no congenital abnormalities , no defects, no history of anomalies growing up. PMH: high blood pressure. SHx: No surgical history. FHx: No renal family history, one uncle with kidney stones only. Maternal side with DMT2. Social: lives with father and grandfather, used to drink on weekends mainly, and sometimes 1-2 beers during week days. Smoked cigarettes for 5 years, 1/2 pack cigarettes a day. Currently not smoking. Denies drug use of any kind. Allergies: none Meds: none. DS: Diagnosis - Discharge Diagnosis (1) CKD (chronic kidney disease) stage V requiring chronic dialysis Status: Chronic (2) Anemia of renal disease Status: Acute (3) Hypertension Status: Chronic (4) Secondary hyperparathyroidism (of renal origin) Status: Chronic (5) Hyperphosphatemia Status: Acute DS: Medications - Discharge Medications Prescriptions: calcitriol [Rocaltrol] 0.25 mcg PO DAILY #30 cap calcium acetate 667 mg PO TID #90 cap hydrocodone-acetaminophen 1 tab PO Q4H PRN #15 tab PRN Reason: Pain Scale 4 To 6 Moderate DS: Summary Hospital Course: 27 year old male with recent discovered hypertension (within the last 6 months), recently diagnosed with chronic kidney disease while in [place] which now appears to be end-stage renal disease. Patient seen in [place] and started on dialysis. Some workup was done but he does not know what the etiology of kidney disease is. Patient is being managed by nephrology with plans for dialysis MWF. Patient's cause of kidney failure is still unknown, his elevated BP is likely a contributing factor. Kidney US showed small and atrophic kidneys with increased echogenicity characteristic of medical renal disease. Receiving hemodialysis via Permcath MWF. [facility] consulted for AVF placement, first stage completed on 11/26/17. Awaiting second stage of AVF creation 6 weeks after discharge with Dr. Dallas. He was set up with dialysis in [place] at [facility]. He will be following with Dr. Whitney as an outpatient. - Time Spent with Patient Total time spent providing and/or coordinating discharge services: Greater than 30 minutes - Quality: VTE Deep Vein Thrombosis/Pulmonary Embolism Present on Admission: No Exam Vital signs: Vital Signs 12/22/17 16:30 12/22/17 16:41 12/22/17 20:00 Temperature 99.4 F 98.9 F Pulse Rate 102 H 95 H Respiratory Rate 18 16 Blood Pressure 114/56 L 101/58 L Pulse Oximetry 96 99 12/23/17 00:00 12/23/17 08:00 12/23/17 11:45 Temperature 99.8 F H 98.2 F 98.0 F Pulse Rate 105 H 92 H 86 Respiratory Rate 17 16 16 Blood Pressure 136/63 101/55 L 123/58 L Pulse Oximetry 100 99 100 Intake & Output 12/22/17 12/23/17 12/23/17 18:59 06:59 18:59 Intake Total 480 / 480 600 / 600 Output Total 1999 Balance -1520 / -1520 600 / 600 Weight 80.3 kg Intake: Oral 480 / 480 600 / 600 Output: Hemodialysis Amount 1999 Other: # Voids 1 Results Procedures completed during hospitalization: 1-Right brachiobasilic AV fistula creation(first stage) Labs on day of discharge: Labs from last 24 hours 12/23/17 08:01 WBC 8.3 RBC 3.42 L Hgb 11.7 L Hct 33.5 L MCV 98.1 MCH 34.2 H MCHC 34.9 RDW 14.1 Plt Count 181 MPV 8.0 Neut % (Auto) 66.7 Lymph % (Auto) 17.7 [place] % (Auto) 12.0 H Eos % (Auto) 2.2 Baso % (Auto) 1.4 Neut # (Auto) 5.6 Lymph # (Auto) 1.5 [place] # (Auto) 1.0 H Eos # (Auto) 0.2 Baso # (Auto) 0.1 WBC Differential . Differential Comment Auto diff final Preliminary micro results at discharge 12/22/17 17:45 Aerobic Blood Culture - Preliminary Blood - Other No growth in 1 day Anaerobic Blood Culture - Preliminary No growth in 1 day 12/22/17 17:00 Aerobic Blood Culture - Preliminary Blood - Other No growth in 1 day Anaerobic Blood Culture - Preliminary No growth in 1 day - Impressions ITS Impressions Abdomen/Bladder Ultrasound 11/23/17 10:32 CONCLUSION: The kidneys are small and atrophic in appearance with increased echogenicity characteristic of medical renal disease. There is no hydronephrosis. Upper Extremity Ultrasound 11/25/17 00:00 CONCLUSION: Bilateral upper extremity venous mapping as above. Venous Doppler Study 11/25/17 00:00 CONCLUSION: 1. The study is negative for bilateral upper extremity deep venous thrombosis. Chest X-Ray 12/22/17 00:00 CONCLUSION: No evidence of acute process. Stable tunneled central venous catheter. Discharge Plan - Discharge Disposition Patient Disposition: Discharge Home - Discharge Condition Condition: Stable - Discharge Order Discharge Orders: Discharge Order (Routine); Ordered 12/22/17 Ordered By: Sivan Aj - Discharge Details Discharge Comment: Okay to discharge if case management has his dialysis appointments set up. Thank you! - Physicians Team Primary Care Provider: Primary Care Physici,No Attending Provider: Lakhwinder Stuart Other Providers: Bruce Whitney MD ; Shelton Rodriguez MD
== END 2017-12-23 15:02 | disposition home or self-care (01) ==
LOC: NEDA 21:00 → NEPD 21:00 → OBSVTOIN 11-22 12:24 → NEPHCDU 11-22 14:41 → H7ONC 11-23 09:48 → N07 11-26 16:51
PROVIDERS: ADMIT Family Medicine; ATTEND Family Medicine
PROC: AVGFTUE (ICD-10-PCS; 2017-11-26 13:37)